=== PATIENT | female | born 1990 | race Caucasian/White ===

== ENCOUNTER 2020-02-21 14:28 | Emergency (ER) | payer OTHER, SELFPAY ==
[2020-02-21 16:10] VITALS: BP 111/75; PULSE 98; RESP 18; TEMP 37.2; O2SAT 99; BMI 24.7
--- NOTE | 2020-02-21 17:30 | PC.NURSE ---
PT EVALED BY PROVIDER. PT HAS CANKER SORES IN MOUTH. SLIGHT SWELLING. AIRWAY PATENT. TALKING IN FULL SENTENCES. COVID AND RAPID STREP ORDERED.
[2020-02-21 18:34] LABS: Influenza A PCR NEGATIVE (Negative); Influenza B PCR NEGATIVE (Negative); Resp Syncy Virus RNA Qual PCR NEGATIVE (Negative); SARS COV2 PCR INHOUSE NEGATIVE (Negative)
--- NOTE | 2020-02-21 19:06 | ED_ITS ---
HPI - General Adult General Chief complaint: General Medical Stated complaint: FACIAL SWELLING Time Seen by Provider: 02/21/20 17:49 Source: patient Mode of arrival: ambulatory Limitations: no limitations History of Present Illness HPI narrative: States she has had some runny nose/congestion for past several days today sore throat with sores in her mouth. Onset (ago): day(s) Severity: mild Treatments prior to arrival: none Related Data Allergies Allergy/AdvReac Type Severity Reaction Status Date / Time No Known Allergies Allergy Unverified 11/12/19 19:01 [No Known Allergies*] Review of Systems Review of Systems: Constitutional: No Weight loss, No Fever, No Chills, No Night Sweats, No Fatigue, No Malaise ENT/Mouth: No Hearing loss, No Ear Pain, + Nasal Congestion, No Sinus Pain, No Hoarseness, + sore throat, + Rhinorrhea, No Swallowing Difficulty Eyes: No Eye Pain, No Swelling, No Redness, No Foreign Body, No Discharge, No Vision Changes Cardiovascular: No Chest Pain, No SOB, No Dyspnea on Exertion, No Orthopnea, No Edema, No Palpitations Respiratory: No Cough, No Sputum, No Wheezing, No Smoke Exposure, No Dyspnea Gastrointestinal: No Nausea, No Vomiting, No Diarrhea, No Constipation, No abdominal Pain, No Hematochezia, No Melena Genitourinary: no irregular bleeding, No Dysuria, No Urinary Frequency, No Hematuria, No Urinary Incontinence, No Urgency, No Flank Pain, No Urinary Flow Changes, No Hesitancy Musculoskeletal: No joint pain, No Myalgias, No Joint Swelling Skin: No Skin Lesions, No rash Neuro: No Weakness, No Numbness, No Paresthesias, No Loss of Consciousness, No Dizziness, No Headache Psych: No Social Issues Heme/Lymph: No Bruising, No Bleeding,No Lymphadenopathy Endocrine: No Polyuria, No Polydipsia, No Temperature Intolerance Yes all other systems are reviewed and are negative [facility] Social History Social History Advance Directives: No Advance Directives Information Provided: Yes Physical Exam Vital Signs: Vital Signs: Last Vital Signs Temp 99.2 F 02/21/20 19:09 Pulse 85 02/21/20 19:09 Resp 16 02/21/20 19:09 BP 111/73 02/21/20 19:09 Pulse Ox 98 02/21/20 19:09 Body Mass Index 24.7 Reviewed Const: General: cooperative and healthy appearing; No acute distress or intoxicated appearing Nutritional Appearance: average body habitus Orientation/consciousness: patient oriented x3 HENMT: Head: Yes normal to inspection Ears: hearing grossly normal bilaterally Mouth: other (Three less than 0.5 cm areas of ulcerations consistent with canker sores) Throat: No peritonsillar mass and Yes postnasal drainage Eyes: General: appearance normal, both eyes and all related structures Visual Gustafson: normal visual gustafson by confrontation Neck: Neck: Yes normal visual inspection, No positive Brudzinski's sign, No positive Kernig's sign and No tender Thyroid: Thyroid normal Chest: Chest palpation & inspection: normal inspection of the chest Resp: Effort & Inspection: normal respiratory effort Cardio: Jugular venous distension: no JVD GI: Inspection: Yes normal to inspection Percussion: Yes normal to percussion Auscultation: normal bowel sounds : General: Yes no CVA tenderness Back/Spine/Pelvis: Back: no CVA tenderness Skin: General skin exam: no rashes or lesions noted Neuro: General: patient oriented x3 Extrem: General: Yes normal to inspection Course Course Course Narrative: Drinking fluids. No acute distress. On her phone. Medical Decision Making Lab Data Labs: Lab Results 02/21/20 Range/Units 17:36 Coronavirus (PCR) NEGATIVE (Negative) Influenza Type A (PCR) NEGATIVE (Negative) Influenza Type B (PCR) NEGATIVE (Negative) RSV RNA Qual (PCR) NEGATIVE (Negative) Discharge Plan Discharge Clinical Impression: Pharyngitis, Canker sores oral Patient Disposition: Home, Self-Care Instructions: Canker Sores (ED), Viral Syndrome (ED) Additional Instructions: Supportive care Avoid any spicy or very cold foods Social swallow Benadryl liquid [id number] as instructed Magic mouthwash or counter Push fluids Tylenol Motrin for pain discomfort Return if any concerns or worsening symptoms Thank you Referrals: Samina Osullivan MD [Primary Care Provider] - 10 days Interventions: ED Discharge Assessment Last Done: 02/21/20 19:21 Discharge Date/Time: 02/21/20 19:23
[2020-02-21 19:09] VITALS: BP 111/73; PULSE 85; RESP 16; TEMP 37.3; O2SAT 98
--- NOTE | 2020-02-21 19:11 | PC.NURSE ---
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
== END 2020-02-21 19:23 | disposition home or self-care (01) ==
PROVIDERS: Nurse Practitioner Primary Care; Emergency Provider Emergency Medicine; PCP Internal Medicine
DX: R22.1 Localized swelling, mass and lump, neck (principal); R07.0 Pain in throat; Z11.59 Encounter for screening for other viral diseases
CPT/HCPCS: 0241U; 87071; 87880; 99284

== ENCOUNTER 2021-01-02 11:31 | Outpatient (REF) | payer OTHER, SELFPAY | END 2021-01-02 11:32 | disposition home or self-care (01) | LOC: HO.LAB 11:31 | PROVIDERS: Visit Provider Internal Medicine | DX: Z20.822 Contact with and (suspected) exposure to COVID-19 (principal) | CPT/HCPCS: C9803; U0003; U0005 ==

== ENCOUNTER 2021-07-07 09:24 | Outpatient (REF) | payer OTHER, SELFPAY ==
--- NOTE | ~2021-07-07 | XR_ITS ---
EXAMINATION: XR BILATERAL KNEE CLINICAL INFORMATION: Pain. COMPARISON: None TECHNIQUE: 4 views each knee. FINDINGS: Right knee: The tricompartment joint space is maintained normal. No acute fracture, bony erosive changes, loose bodies or joint effusion seen. Left knee: The tricompartment joint space is normal. No visible acute fracture, dislocation, loose bodies or bony erosive changes. No abnormal joint effusion seen. XR/XR knee LT 4V IMPRESSION: Unremarkable bilateral knee exam.
--- NOTE | ~2021-07-07 | XR_ITS ---
EXAMINATION: XR BILATERAL KNEE CLINICAL INFORMATION: Pain. COMPARISON: None TECHNIQUE: 4 views each knee. FINDINGS: Right knee: The tricompartment joint space is maintained normal. No acute fracture, bony erosive changes, loose bodies or joint effusion seen. Left knee: The tricompartment joint space is normal. No visible acute fracture, dislocation, loose bodies or bony erosive changes. No abnormal joint effusion seen. XR/XR knee RT 4V IMPRESSION: Unremarkable bilateral knee exam.
--- NOTE | 2021-07-07 09:48 | ECG_ITS ---
Test Reason : CHEST PAIN Blood Pressure : / mmHG Vent. Rate : 070 BPM Atrial Rate : 070 BPM P-R Int : 148 ms QRS Dur : 090 ms QT Int : 368 ms P-R-T Axes : 045 059 012 degrees QTc Int : 397 ms Normal sinus rhythm Normal ECG No previous ECGs available Referred By: Samina Bone Electronically Signed By:JESSE VAIL MD
[2021-07-07 10:00] LABS: MANUAL DIFF FLAG NO
[2021-07-07 10:16] LABS: Basophils Absolute Auto 0.1 X10*3/uL (0.0-0.2); Basophils Percent Auto 0.9 % (0-2); Eosinophils Absolute Auto 0.1 X10*3/uL (0.0-0.4); Eosinophils Percent Auto 1.7 % (0-4); Hematocrit 36.1 % (37.0-47.0); Hemoglobin 11.4 g/dl (12.0-16.0); Imm Gran Abs Auto 0.04 X10*3/uL (0.00-0.03); Imm Gran Pct Auto 0.6 % (0.0-0.4); Lymphocytes Absolute Auto 1.9 X10*3/uL (1.2-4.9); Lymphocytes Percent Auto 27.1 % (20-40); Mean Corpuscular HGB Conc 31.6 g/dl (31.0-35.0); Mean Corpuscular Hemoglobin 27.2 pg (27.0-33.0); Mean Corpuscular Volume 86.2 fL (80.0-98.0); Mean Platelet Volume 10.8 fL (9.4-12.3); Monocytes Absolute Auto 0.6 X10*3/uL (0.1-1.2); Monocytes Percent Auto 8.4 % (2-11); Neutrophils Absolute Auto 4.2 x10*3/uL (2.0-8.3); Neutrophils Percent Auto 61.3 % (45-73); Platelet Count 233 X10*3/uL (160-400); Red Blood Count 4.19 X10*6/uL (4.20-5.50); Red Cell Distribution Width 13.7 % (11.0-16.0); White Blood Count 6.9 X10*3/uL (4.8-10.8)
[2021-07-07 10:48] LABS: Alanine Aminotransferase 7 U/L (0-31); Albumin Level 3.9 g/dL (3.5-5.0); Alkaline Phosphatase 42 U/L (39-117); Anion Gap 9 (12-20); Aspartate Amino Transferase 11 U/L (5-31); Bilirubin Total 0.3 mg/dL (0.0-1.0); Blood Urea Nitrogen 9 mg/dL (9-16); Calcium 9.2 mg/dL (8.4-10.2); Carbon Dioxide 27 mmol/L (22-29); Chloride 107 mmol/L (96-108); Cholesterol 119 mg/dL; Estimated Glomerular Filt Rate > 60; Glucose Fasting 100 mg/dL (60-99); HDL Cholesterol 38 mg/dL; LDL Cholesterol Calculated 69 mg/dl; Sodium 139 mmol/L (135-145); Total Protein 6.9 g/dL (6.5-8.0); Triglycerides 62 mg/dL
== END 2021-07-07 09:25 | disposition home or self-care (01) ==
LOC: HO.XRAY 09:24
PROVIDERS: PCP Internal Medicine; Visit Provider Internal Medicine
DX: R07.9 Chest pain, unspecified (principal); M25.562 Pain in left knee; M25.561 Pain in right knee; D64.9 Anemia, unspecified; K21.9 Gastro-esophageal reflux disease without esophagitis
CPT/HCPCS: 36415; 73564; 80053; 80061; 85025; 93005

== ENCOUNTER 2021-08-08 11:48 | Outpatient (REF) | payer OTHER, SELFPAY ==
[2021-08-09 08:52] LABS: BV Int Neg Control Negative (Negative); BV Int Pos Control Positive (Positive)
[2021-08-09 09:10] LABS: CT PCR NOT DETECTED (Not Detect.); NG PCR NOT DETECTED (Not Detect.)
[2021-08-15 02:13] LABS: HPV mRNA E6/E7 rflx Not Detected (Not Detected)
== END 2021-08-08 11:49 | disposition home or self-care (01) ==
LOC: HO.LAB 11:48
PROVIDERS: Visit Provider Advanced Practice Midwife
DX: Z01.419 Encounter for gynecological examination (general) (routine) without abnormal findings (principal); Z11.3 Encounter for screening for infections with a predominantly sexual mode of transmission; Z11.51 Encounter for screening for human papillomavirus (HPV)
CPT/HCPCS: 87480; 87491; 87510; 87591; 87624; 87660; 88142

== ENCOUNTER 2021-08-09 15:40 | Outpatient (REF) | payer OTHER, SELFPAY ==
[2021-08-11 15:28] LABS: H Pylori Breath Test Positive (Negative)
== END 2021-08-09 15:41 | disposition home or self-care (01) ==
LOC: HO.LNP 15:40
PROVIDERS: Visit Provider Nurse Practitioner Family
DX: K21.9 Gastro-esophageal reflux disease without esophagitis (principal)
CPT/HCPCS: 83013; 99202

== ENCOUNTER 2021-09-19 13:48 | Outpatient (REF) | payer OTHER, SELFPAY ==
--- NOTE | ~2021-09-19 | US_ITS ---
EXAMINATION: US PELVIS CLINICAL INFORMATION: Pelvic and perineal pain, last menstrual period 09/09/2021. COMPARISON: None. TECHNIQUE: Ultrasound of the pelvis is performed using both transabdominal and transvaginal transducers along with Doppler. Transvaginal imaging is performed due to inadequate visualization transabdominally. FINDINGS: The uterus is heterogeneous and measures 10.0 x 4.6 x 5.8 cm. No discrete fibroid identified. Endometrial thickness is 0.7 cm. No significant free fluid. Left ovary is unremarkable and measures 3.0 x 2.3 x 2.8 cm, volume 10.1 mL. Right ovary measures 4.7 x 1.8 x 3.2 cm, volume 14.2 mL. 1.6 x 1.5 x 1.6 cm likely simple right ovarian cyst is characteristic of a dominant follicle. US/US pelvic and transvaginal IMPRESSION: Endometrium is echogenic with thickness of 0.7 cm. Heterogeneous uterus. No discrete fibroids. Right ovarian 1.6 cm cyst is characteristic of a dominant follicle.
== END 2021-09-19 13:49 | disposition home or self-care (01) ==
LOC: HO.US 13:48
PROVIDERS: Visit Provider Advanced Practice Midwife
DX: R10.2 Pelvic and perineal pain (principal)
CPT/HCPCS: 76830; 76856

== ENCOUNTER 2021-11-14 08:24 | Day surgery (SDC) | payer OTHER, SELFPAY ==
[2021-11-09 12:09] VITALS: BMI 24.6
--- NOTE | 2021-11-13 14:22 | P.CONAN_ITS ---
Documented by User: Sherrell Martell NP 11/13/21 14:24 HPI - Anesthesia Eval Consult details Narrative: 31yo F for Upper Endoscopy PMFSH Active Problems Active Problems: All Active Problems (Updated 09/04/21 @ 12:53 by Ciarra Anguiano CNM) Hemorrhoids (Acute) Screen for sexually transmitted diseases (Acute) Cervical cancer screening (Acute) Well woman exam with routine gynecological exam (Acute) Pelvic pain (Acute) Chronic GERD (Acute) Right knee pain (Acute) Left knee pain (Acute) SAMRA (generalized anxiety disorder) (Acute) Migraines (Acute) Mild recurrent major depression (Acute) Chest pain (Acute) Past Medical History Medical History Chest pain Chronic GERD SAMRA (generalized anxiety disorder) Left knee pain Migraines Mild recurrent major depression Right knee pain Family History Family History Mother Diabetes Arthritis Father Diabetes Arthritis Sister Cancer Surgical History Surgical History Hx of cholecystectomy Hx of tubal ligation Social History Social History Housing: House Alcohol intake: never Patient Tobacco Use Status: Never used Tobacco e-Cigarette/Vaping Use: Never Used Second Hand Smoke Exposure: No Use of substances other than those prescribed or required for medical reasons: No Advance Directives: No Advance Directives Information Provided: Yes service: No Current occupational status: employed Current occupational exposures/hazards: No Cognitive needs: No Hearing needs: No Vision needs: Yes Meds Allergies Allergy/AdvReac Type Severity Reaction Status Date / Time No Known Allergies Allergy Verified 09/29/21 14:41 [No Known Allergies*] Exam Exam Date and Time: November 13, 2021 142 Height,Weight and Vital Signs: Height 5 ft 3 in Weight 63.049 kg Pertinent Lab Results Pertinent Lab Results: Laboratory Tests 07/07/21 07/07/21 09:59 09:59 WBC 6.9 Hgb 11.4 L Hct 36.1 L Plt Count 233 Sodium 139 Potassium 4.0 Chloride 107 Carbon Dioxide 27 BUN 9 Creatinine 0.68 Narrative Narrative: EKG 06/2021 Vent. Rate : 070 BPM ? ? Atrial Rate : 070 BPM ?? P-R Int : 148 ms? QRS Dur : 090 ms ? ? QT Int : 368 ms ? ? ? P-R-T Axes : 045 059 012 degrees ?? QTc Int : 397 ms ? Normal sinus rhythm Normal ECG No previous ECGs available Assessment and Plan Assessment Anesthesia Assessment: Chart Reviewed Documented by User: Yordan Tomlinson MD 11/14/21 10:26 [facility] Past Medical History Medical History Chest pain Chronic GERD SAMRA (generalized anxiety disorder) Left knee pain Migraines Mild recurrent major depression Right knee pain Patient : No Family History Family History Mother Diabetes Arthritis Father Diabetes Arthritis Sister Cancer Family history of problems with anesthesia: No Surgical History Surgical History Hx of cholecystectomy Hx of tubal ligation History of Problems with Anesthesia: No Social History Social History Housing: House Alcohol intake: never Patient Tobacco Use Status: Never used Tobacco e-Cigarette/Vaping Use: Never Used Second Hand Smoke Exposure: No Use of substances other than those prescribed or required for medical reasons: No Advance Directives: No Advance Directives Information Provided: Yes service: No Current occupational status: employed Current occupational exposures/hazards: No Cognitive needs: No Hearing needs: No Vision needs: Yes Meds Allergies Allergy/AdvReac Type Severity Reaction Status Date / Time No Known Allergies Allergy Verified 09/29/21 14:41 [No Known Allergies*] Exam Airway Mallampati Class: II TM Dist: >3cm Neck ROM: Full Loose/Missing/Broken Teeth: No Heart: rrr Lungs: clear Assessment and Plan Final Anesthetic Review Family History of Problems with Anesthesia: No History of Problems with Anesthesia: No NPO: Yes ASA Class: II Final Preanesthetic Review: No Changes in Pt Med Stat, Meds/Allgs Chart Reviewed, Consent Obtained/Reviewed and Anes Risks/Benef Reviewed Patient Risk: Low Procedure Risk: Low Anesthetic Plan Anesthetic Plan: MAC: Disposition: Standard PACU
--- NOTE | 2021-11-14 09:08 | MHC.SHP ---
Pre-Procedural Eval Section A Date of Service: 11/14/21 Section B Chief Complaint: epigastric pain Details of Present Illness: h pylori--finished treatment last week Relevant Family History (Specify if Yes): No Relevant Social History: None Present Medications: see Short Stay Collaborative assessment Medical History: Significant History (gerd) History of Previous Operations: Relevant previous surgery/procedure and date(s) (Hx of cholecystectomy Hx of tubal ligation) Allergies: Allergies Allergy/AdvReac Type Severity Reaction Status Date / Time No Known Allergies Allergy Verified 09/29/21 14:41 [No Known Allergies*] Review of Systems Sugical H&P ROS: Negative: Constitution, Cardiovascular, Respiratory, Neurological, Psychiatric, Hem-Onc, Allergic/Immunologic, Gastrointestinal, Genitourinary, Musculoskeletal, Integumentary, Endocrine and Eyes/Ears/Nose/Throat Exam Surgical H&P Exam: Normal: HEENT, Normal: Heart, Normal: Lungs, Normal: Extremities, Normal: Abdomen, Normal: Skin and Normal: Neurological Plan Diagnosis/Plan: Unchanged I have reviewed the history and physical and performed a pertinent physical examination on my patient. No changes have occurred unless specified.
[2021-11-14 10:19] VITALS: BP 120/78; PULSE 79; RESP 16; TEMP 36.6; O2SAT 100; BMI 23.9
[2021-11-14] MEDS: Lactated Ringers 1,000 ML 100 ML IVCONT (10:22)
--- NOTE | 2021-11-14 11:11 | W.PM.OPN ---
Operative Note Operative Note Date of Service: 11/14/21 Narrative: Procedure Description: EGD Indication: epigastric pain Anesthesia: MAC FLEXIBLE TRANSORAL UPPER GASTROINTESTINAL ENDOSCOPY UPPER ENDOSCOPY Consent: Indications for the procedure and potential complications of bleeding, perforation, reaction to medications and missed diagnosis were discussed with the patient and informed consent was obtained. Instrument: Olympus GIF H 190 J mid size upper endoscope Monitoring: Vital signs and clinical assessment, continuous EKG monitoring, Pulse oximetry, Carbon Dioxide monitoring and blood pressure monitoring were done throughout the procedure. Procedure: The patient was placed in the left lateral decubitis position and pre-procedure medications were administered and a bite block was placed. The endoscope was inserted into the mouth and advanced under direct vision to the third part of duodenum. A careful inspection was made as the upper endoscope was withdrawn including a retroflexed examination of the proximal stomach; Findings and interventions are described below. Findings: Larynx:normal Esophagus: GE junction at 34 cm, diaphragm hiatus at 37 cm, consistent with 3 cm hiatal hernia, possible barretts, bx taken from GEJ and then distal and proximal esophagus in separate jars. Stomach: Patchy gastric erythema. Biopsies were obtained. Grade 2 flap valve on retroflexed examination of the cardia. Duodenum: mild bulbar duodenitis, normal descending duodenum, bx taken, also pulsation noted pushing into the second part of duodenum Intervention: Biopsies as noted above Impression/Findings: hiatal hernia duodenitis possible barretts ?SMA syndrome PLAN: await bx if ongoing sx then US mesenteric doppler
[2021-11-14 11:18] VITALS: BP 113/70; PULSE 78; RESP 16; TEMP 36.6; O2SAT 100
[2021-11-14 11:33] VITALS: BP 113/74; PULSE 83; RESP 16; TEMP 36.6; O2SAT 100
[2021-11-14 11:48] VITALS: BP 121/84; PULSE 70; RESP 16; TEMP 36.6; O2SAT 100
== END 2021-11-14 12:19 | disposition home or self-care (01) ==
PROVIDERS: PCP Internal Medicine; Visit Provider Internal Medicine Gastroenterology
PROC: 0DJ08ZZ Inspection of Upper Intestinal Tract, Via Natural or Artificial Opening Endoscopic (ICD-10-PCS; CPT 43235; principal; 2021-11-14 11:00)
DX: K59.04 Chronic idiopathic constipation (principal); K21.9 Gastro-esophageal reflux disease without esophagitis; R13.12 Dysphagia, oropharyngeal phase; R10.13 Epigastric pain; Z86.19 Personal history of other infectious and parasitic diseases; R14.0 Abdominal distension (gaseous); K29.80 Duodenitis without bleeding; K44.9 Diaphragmatic hernia without obstruction or gangrene; Z79.899 Other long term (current) drug therapy; Z90.49 Acquired absence of other specified parts of digestive tract
CPT/HCPCS: 43239; 88305; 88342

== ENCOUNTER → 2021-12-08 10:14 | Outpatient (BNVA) | payer OTHER, SELFPAY | PROVIDERS: PCP Internal Medicine; Visit Provider Nurse Practitioner Family | DX: K21.9 Gastro-esophageal reflux disease without esophagitis (principal); K59.00 Constipation, unspecified; R10.11 Right upper quadrant pain; K58.1 Irritable bowel syndrome with constipation; R14.0 Abdominal distension (gaseous); K44.9 Diaphragmatic hernia without obstruction or gangrene; K29.80 Duodenitis without bleeding | CPT/HCPCS: 99212 ==

== ENCOUNTER 2021-12-22 09:05 | Outpatient (REF) | payer OTHER, SELFPAY ==
--- NOTE | ~2021-12-22 | XR_ITS ---
EXAMINATION: XR KNEE, LEFT CLINICAL INFORMATION: M25.562 - Pain in left knee COMPARISON: Left knee radiographs 01/14/2018 TECHNIQUE: Four views of the left knee. FINDINGS: Normal bony mineralization. No fracture, dislocation, destructive process, or arthropathy. No joint narrowing or erosive change or chondrocalcinosis. No visible suprapatellar effusion. Hoffa's fat pad appears normal. XR/XR knee LT 3V IMPRESSION: Normal left knee.
--- NOTE | ~2021-12-22 | XR_ITS ---
EXAMINATION: XR WRIST, LEFT CLINICAL INFORMATION: Pain COMPARISON: None TECHNIQUE: The left wrist is imaged in 4 views. FINDINGS: Normal bony mineralization. No acute or healing fracture or dislocation or arthropathy. Lateral view shows dorsal bowing of the distal ulnar. The pronator quadratus fat pad appears normal. There is no carpal joint narrowing, erosive changes, or chondrocalcinosis. XR/XR hand wrist LT IMPRESSION: 1. No fracture, dislocation, or arthropathy. 2. Mild dorsal bowing distal ulnar on lateral view.
[2021-12-22 09:27] LABS: MANUAL DIFF FLAG NO
[2021-12-22 10:12] LABS: Basophils Percent Auto 0.6 % (0-2); Eosinophils Absolute Auto 0.1 X10*3/uL (0.0-0.4); Eosinophils Percent Auto 1.7 % (0-4); Hematocrit 37.1 % (37.0-47.0); Hemoglobin 11.8 g/dl (12.0-16.0); Imm Gran Abs Auto 0.07 X10*3/uL (0.00-0.03); Lymphocytes Absolute Auto 2.1 X10*3/uL (1.2-4.9); Lymphocytes Percent Auto 29.3 % (20-40); Mean Corpuscular HGB Conc 31.8 g/dl (31.0-35.0); Mean Corpuscular Hemoglobin 27.6 pg (27.0-33.0); Mean Corpuscular Volume 86.9 fL (80.0-98.0); Mean Platelet Volume 10.7 fL (9.4-12.3); Monocytes Absolute Auto 0.7 X10*3/uL (0.1-1.2); Monocytes Percent Auto 9.2 % (2-11); Neutrophils Absolute Auto 4.1 x10*3/uL (2.0-8.3); Neutrophils Percent Auto 58.2 % (45-73); Platelet Count 242 X10*3/uL (160-400); Red Blood Count 4.27 X10*6/uL (4.20-5.50); Red Cell Distribution Width 13.4 % (11.0-16.0); White Blood Count 7.1 X10*3/uL (4.8-10.8)
[2021-12-22 10:55] LABS: Blood Urea Nitrogen 10 mg/dL (9-16); Estimated Glomerular Filt Rate > 60; Iron 47 mcg/dL (30-160); Lipase 29 U/L (8-78); Percent Iron Saturation 12 % (15-50); Total Iron Binding Capacity 391 mcg/dL (228-428); Unsaturated Iron Binding 344 ug/dL
== END 2021-12-22 09:06 | disposition home or self-care (01) ==
LOC: HO.XRAY 09:05
PROVIDERS: Absent Provider Nurse Practitioner Family; PCP Internal Medicine; Visit Provider Internal Medicine
DX: R10.11 Right upper quadrant pain (principal); M79.642 Pain in left hand; M25.562 Pain in left knee; D64.9 Anemia, unspecified
CPT/HCPCS: 36415; 73110; 73130; 73562; 82565; 83540; 83690; 84520; 85025; 86003

== ENCOUNTER 2021-12-27 12:22 | Outpatient (REF) | payer OTHER, SELFPAY ==
--- NOTE | ~2021-12-27 | CT_ITS ---
EXAMINATION: CT ABDOMEN AND PELVIS WITH CONTRAST CLINICAL INFORMATION: Unspecified abdominal pain. COMPARISON: None TECHNIQUE: Multidetector volumetric images were obtained from the superior aspect of the liver through the pubic symphysis following administration 85 mL of Omnipaque 350 intravenous contrast. Sagittal and coronal reformatted images were obtained on the technologist's workstation. Oral contrast: No. This CT examination was performed using dose optimization techniques as appropriate, variously including the following: *Automated exposure control *Adjustment of mA and/or kV according to patient size (this includes techniques or standardized protocols for targeted exams where dose is matched to indication/reason for exam; i.e. extremities or head) *Use of iterative reconstruction technique DLP: 297 mGy-cm FINDINGS: LUNG BASES: Minimal atelectasis at the left lung base. The heart size is normal. LIVER, GALLBLADDER, AND BILIARY TREE: The liver is normal in size, shape, and attenuation. No focal hepatic lesion or biliary ductal dilatation is present. The gallbladder is unremarkable with no evidence of radiopaque gallstones, gallbladder wall thickening, or obvious pericholecystic inflammatory changes. PANCREAS: Unremarkable. SPLEEN: Unremarkable. ADRENAL GLANDS: Unremarkable. KIDNEYS AND URETERS: The kidneys are normal in size, shape, and attenuation. No hydronephrosis, hydroureter, or calculi seen. No perinephric stranding. BLADDER: The bladder is nondistended. GASTROINTESTINAL TRACT: There is moderate scattered stool and oral contrast seen throughout the colon without distention. The small bowel loops are normal caliber. The appendix is not visualized. There is no inflammatory process seen in the abdomen. No free air or free fluid seen. ABDOMINAL WALL: No significant hernia is appreciated. LYMPH NODES: Normal. VASCULAR: Unremarkable. PELVIC VISCERA: The uterus is anteverted and appears unremarkable. No adnexal mass or free fluid seen. No abnormal-sized lymph nodes. OSSEOUS STRUCTURES: Unremarkable. CT/CT abdomen pelvis w IV con IMPRESSION: No acute intra-abdominal process seen. [id number] constipation. The appendix is not seen. Fleischner guidelines were followed.
[2021-12-27] MEDS: Barium Sulfate Oral (Berry) 450 ML ORAL.SUSP 900 ML PO (13:55)
[2021-12-27] MEDS: iohexoL 350 MG/ML 100 ML INFUS..BTL 85 ML IV (15:16)
== END 2021-12-27 12:23 | disposition home or self-care (01) ==
LOC: HO.CT 12:22
PROVIDERS: PCP Internal Medicine; Visit Provider Nurse Practitioner Family
DX: R10.9 Unspecified abdominal pain (principal)
CPT/HCPCS: 74177; Q9967

== ENCOUNTER 2022-02-10 21:42 | Emergency (ER) | payer OTHER, SELFPAY ==
[2022-02-10 22:42] VITALS: BP 93/46; PULSE 107; RESP 24; TEMP 38.7; O2SAT 100; BMI 23.0
[2022-02-11 03:27] VITALS: BP 116/60; PULSE 96; RESP 16; TEMP 37.7; O2SAT 98
[2022-02-11 03:58] LABS: MANUAL DIFF FLAG NO
[2022-02-11 03:59] LABS: Basophils Percent Auto 0.3 % (0-2); Eosinophils Percent Auto 0.1 % (0-4); Hematocrit 33.6 % (37.0-47.0); Hemoglobin 11.3 g/dl (12.0-16.0); Imm Gran Abs Auto 0.11 X10*3/uL (0.00-0.03); Imm Gran Pct Auto 0.7 % (0.0-0.4); Lymphocytes Percent Auto 6.3 % (20-40); Mean Corpuscular HGB Conc 33.6 g/dl (31.0-35.0); Mean Corpuscular Volume 83.4 fL (80.0-98.0); Mean Platelet Volume 10.5 fL (9.4-12.3); Monocytes Absolute Auto 1.2 X10*3/uL (0.1-1.2); Monocytes Percent Auto 7.2 % (2-11); Neutrophils Absolute Auto 13.6 x10*3/uL (2.0-8.3); Neutrophils Percent Auto 85.4 % (45-73); Platelet Count 204 X10*3/uL (160-400); Red Blood Count 4.03 X10*6/uL (4.20-5.50); Red Cell Distribution Width 13.2 % (11.0-16.0)
[2022-02-11 04:10] LABS: Lactic Acid 1.3 mmol/L (0.5-2.0)
[2022-02-11 04:20] LABS: Alanine Aminotransferase 6 U/L (0-31); Albumin Level 4.1 g/dL (3.5-5.0); Alkaline Phosphatase 43 U/L (39-117); Anion Gap 14 (12-20); Aspartate Amino Transferase 13 U/L (5-31); Bilirubin Direct 0.3 mg/dL (0.0-0.5); Bilirubin Total 0.9 mg/dL (0.0-1.0); Blood Urea Nitrogen 9 mg/dL (9-16); Calcium 8.9 mg/dL (8.4-10.2); Carbon Dioxide 21 mmol/L (22-29); Chloride 102 mmol/L (96-108); Estimated Glomerular Filt Rate > 60; Glucose Random 116 mg/dL (60-115); Lipase 20 U/L (8-78); Magnesium 1.6 mg/dL (1.6-2.6); Potassium 3.6 mmol/L (3.3-5.1); Sodium 133 mmol/L (135-145); Total Protein 6.9 g/dL (6.5-8.0)
[2022-02-11 04:33] LABS: Influenza A PCR NEGATIVE (Negative); Influenza B PCR NEGATIVE (Negative); Resp Syncy Virus RNA Qual PCR NEGATIVE (Negative); SARS COV2 PCR INHOUSE POSITIVE (Negative)
[2022-02-11 06:00] VITALS: BP 114/58; PULSE 100; RESP 16; TEMP 37.7; O2SAT 98
--- NOTE | 2022-02-11 06:32 | ED_ITS ---
HPI - Fever General Chief Complaint: Fever Stated Complaint: Vomiting/ SOB Time Seen by Provider: 02/11/22 01:34 Source: patient Mode of arrival: ambulatory History of Present Illness HPI Narrative: Patient comes emergency room complaining of body aches, fever. Related Data Home Medications Medication Instructions Recorded Confirmed hydroxyzine pamoate 50 mg capsule 50 mg PO BID PRN 12/08/21 sertraline 25 mg tablet 25 mg PO DAILY 12/08/21 Previous Rx's Medication Instructions Recorded trazodone 50 mg tablet 50 mg PO BEDTIME PRN sleep 90 days 12/05/21 #90 tabs famotidine 20 mg tablet (Pepcid) 20 mg PO BEDTIME #30 tabs 12/08/21 pantoprazole 40 mg tablet,delayed 40 mg PO DAILY #90 tabs 12/08/21 release sennosides 8.6 mg tablet (Natural 8.6 mg PO BEDTIME constipation #90 12/08/21 Senna Laxative) tabs nirmatrelvir 300 mg (150 mg See Rx Instructions PO .COMPLEX 02/11/22 x2)-ritonavir 100 mg tablet,dose #30 ea pack(EUA) (Paxlovid) ondansetron 4 mg disintegrating 4 mg PO Q6H PRN nausea and 02/11/22 tablet vomiting #14 tabs Allergies Allergy/AdvReac Type Severity Reaction Status Date / Time No Known Allergies Allergy Verified 12/08/21 10:23 [No Known Allergies*] Review of Systems Review of Systems: Constitutional : No Weight loss, subjective fever, body ENT/Mouth : No Hearing loss, No Ear Pain, No Nasal Congestion, No Sinus Pain, No Hoarseness, No sore throat, No Rhinorrhea, No Swallowing Difficulty Eyes: No Eye Pain, No Swelling, No Redness, No Foreign Body, No Discharge, No Vision Changes Cardiovascular : No Chest Pain, No SOB, No Dyspnea on Exertion, No Orthopnea, No Edema, No Palpitations Respiratory : No Cough, No Sputum, No Wheezing, No Smoke Exposure, No Dyspnea Gastrointestinal : complaining of Vomiting, No Diarrhea, No Constipation, No abdominal Pain, No Hematochezia, No Melena Genitourinary : no irregular bleeding, No Dysuria, No Urinary Frequency, No Hematuria, No Urinary Incontinence, No Urgency, No Flank Pain, No Urinary Flow Changes, No Hesitancy Musculoskeletal : No joint pain, No Myalgias, No Joint Swelling Skin : No Skin Lesions, No rash Neuro : No Weakness, No Numbness, No Paresthesias, No Loss of Consciousness, No Dizziness, No Headache Psych : No Anxiety/Panic, No Depression, No SI/HI/AH/VH, No Social Issues, Heme/Lymph: No Bruising, No Bleeding,No Lymphadenopathy Endocrine : No Polyuria, No Polydipsia, No Temperature Intolerance FOR[facility], LAT[facility] Past Medical History Medical History Chest pain Chronic GERD Duodenitis SAMRA (generalized anxiety disorder) Hiatal hernia Left knee pain Migraines Mild recurrent major depression Right knee pain Surgical History History of esophagogastroduodenoscopy (EGD) Hx of cholecystectomy Hx of tubal ligation Family History Family History Mother Diabetes Arthritis Father Diabetes Arthritis Sister Cancer Social History Social History Housing: House Alcohol intake: never Patient Tobacco Use Status: Never used Tobacco e-Cigarette/Vaping Use: Never Used Second Hand Smoke Exposure: No Advance Directives: No Advance Directives Information Provided: No service: No Current occupational status: employed Current occupational exposures/hazards: No Cognitive needs: No Hearing needs: No Vision needs: Yes Physical Exam Vital Signs: Vital Signs: Last Vital Signs Temp 99.9 F 02/11/22 06:00 Pulse 100 02/11/22 06:00 Resp 16 02/11/22 06:00 BP 114/58 L 02/11/22 06:00 Pulse Ox 98 02/11/22 06:00 O2 Del Method 02/11/22 06:00 BMI result Body Mass Index 23.0 Const: Other: Appearance: Alert. Oriented X3. No acute distress. Eyes: Pupils equal, round and reactive to light. Bilateral scleral injection ENT: Pharynx normal. Neck: Normal inspection. Neck supple. No lymph nodes noted. No crepitus CVS: Normal heart rate and rhythm. Pulses normal. Normal S1 and S2 Respiratory: No respiratory distress. Breath sounds normal. No Wheezing. No rales Abdomen: Soft and nontender. No rigidity. No distention. Skin: Skin warm and dry. Normal skin color. Normal skin turgor. Extremities: No lower extremity edema. No Lacerations. No Rash Neuro: Oriented X 3. No motor deficit. No sensory deficit. Moving all extremities. No slurred speech. CN 2 through 12 grossly intact Psych: calm, cooperative, normal affect Course Course Course Narrative: I discussed the labs with the patient, patient tested positive for influenza A. Patient's white blood cell count elevated, likely reactive leukocytosis. Patient having a viral illness per Medical Decision Making Lab Data Result Diagrams: 02/11/22 03:52 02/11/22 03:52 Labs: Lab Results 02/11/22 02/11/22 02/11/22 Range/Units 03:52 03:52 03:52 WBC 16.0 H (4.8-10.8) X10*3/uL RBC 4.03 L (4.20-5.50) X10*6/uL Hgb 11.3 L (12.0-16.0) g/dl Hct 33.6 L (37.0-47.0) % MCV 83.4 (80.0-98.0) fL MCH 28.0 (27.0-33.0) pg MCHC 33.6 (31.0-35.0) g/dl RDW 13.2 (11.0-16.0) % Plt Count 204 (160-400) X10*3/uL MPV 10.5 (9.4-12.3) fL Immature Gran % (Auto) 0.7 H (0.0-0.4) % Neut % (Auto) 85.4 H (45-73) % Lymph % (Auto) 6.3 L (20-40) % [place] % (Auto) 7.2 (2-11) % Eos % (Auto) 0.1 (0-4) % Baso % (Auto) 0.3 (0-2) % Lymph # (Auto) 1.0 L (1.2-4.9) X10*3/uL [place] # (Auto) 1.2 (0.1-1.2) X10*3/uL Eos # (Auto) 0.0 (0.0-0.4) X10*3/uL Baso # (Auto) 0.0 (0.0-0.2) X10*3/uL Abs Immat Gran (auto) 0.11 H (0.00-0.03) X10*3/uL Absolute Neuts (auto) 13.6 H (2.0-8.3) x10*3/uL Absolute Nucleated RBC 0.000 (0.0-0.012) X10*3/uL Nucleated RBC % (auto) 0.0 (0.0-0.2) /100WBC Sodium 133 L (135-145) mmol/L Potassium 3.6 (3.3-5.1) mmol/L Chloride 102 (96-108) mmol/L Carbon Dioxide 21 L (22-29) mmol/L Anion Gap 14 (12-20) BUN 9 (9-16) mg/dL Creatinine 0.74 (0.5-1.4) mg/dL Estim Creat Clear Calc 91.0 Estimated GFR > 60 Random Glucose 116 H (60-115) mg/dL Lactic Acid (0.5-2.0) mmol/L Calcium 8.9 (8.4-10.2) mg/dL Magnesium 1.6 (1.6-2.6) mg/dL Total Bilirubin 0.9 (0.0-1.0) mg/dL Direct Bilirubin 0.3 (0.0-0.5) mg/dL AST 13 (5-31) U/L ALT 6 (0-31) U/L Alkaline Phosphatase 43 (39-117) U/L Total Protein 6.9 (6.5-8.0) g/dL Albumin 4.1 (3.5-5.0) g/dL Lipase 20 (8-78) U/L Influenza Type A (PCR) NEGATIVE (Negative) Influenza Type B (PCR) NEGATIVE (Negative) RSV RNA Qual (PCR) NEGATIVE (Negative) SARS-CoV-2 RNA (RT-PCR) POSITIVE A (Negative) 02/11/22 Range/Units 03:52 WBC (4.8-10.8) X10*3/uL RBC (4.20-5.50) X10*6/uL Hgb (12.0-16.0) g/dl Hct (37.0-47.0) % MCV (80.0-98.0) fL MCH (27.0-33.0) pg MCHC (31.0-35.0) g/dl RDW (11.0-16.0) % Plt Count (160-400) X10*3/uL MPV (9.4-12.3) fL Immature Gran % (Auto) (0.0-0.4) % Neut % (Auto) (45-73) % Lymph % (Auto) (20-40) % [place] % (Auto) (2-11) % Eos % (Auto) (0-4) % Baso % (Auto) (0-2) % Lymph # (Auto) (1.2-4.9) X10*3/uL [place] # (Auto) (0.1-1.2) X10*3/uL Eos # (Auto) (0.0-0.4) X10*3/uL Baso # (Auto) (0.0-0.2) X10*3/uL Abs Immat Gran (auto) (0.00-0.03) X10*3/uL Absolute Neuts (auto) (2.0-8.3) x10*3/uL Absolute Nucleated RBC (0.0-0.012) X10*3/uL Nucleated RBC % (auto) (0.0-0.2) /100WBC Sodium (135-145) mmol/L Potassium (3.3-5.1) mmol/L Chloride (96-108) mmol/L Carbon Dioxide (22-29) mmol/L Anion Gap (12-20) BUN (9-16) mg/dL Creatinine (0.5-1.4) mg/dL Estim Creat Clear Calc Estimated GFR Random Glucose (60-115) mg/dL Lactic Acid 1.3 (0.5-2.0) mmol/L Calcium (8.4-10.2) mg/dL Magnesium (1.6-2.6) mg/dL Total Bilirubin (0.0-1.0) mg/dL Direct Bilirubin (0.0-0.5) mg/dL AST (5-31) U/L ALT (0-31) U/L Alkaline Phosphatase (39-117) U/L Total Protein (6.5-8.0) g/dL Albumin (3.5-5.0) g/dL Lipase (8-78) U/L Influenza Type A (PCR) (Negative) Influenza Type B (PCR) (Negative) RSV RNA Qual (PCR) (Negative) SARS-CoV-2 RNA (RT-PCR) (Negative) Discharge Plan Discharge Clinical Impression: COVID-19 Patient Disposition: Home, Self-Care Instructions: COVID-19 (Coronavirus Disease 2019) (ED) Additional Instructions: Please follow-up with your primary care physician tomorrow. If you have any worsening or new symptoms, please return to the emergency room or call 911 Prescriptions: New Paxlovid (EUA) 300 mg (150 mg x 2)-100 mg tablets,dose pack See Rx Instructions .ROUTE .COMPLEX Qty: 30 0RF Rx Instructions: take TWO 150 mg tablets of nirmatrelvir with ONE 100 mg tablet of ritonavir twice daily for 5 days ondansetron 4 mg tablet,disintegrating 4 mg PO Q6H PRN (Reason: nausea and vomiting) Qty: 14 0RF No Action trazodone 50 mg tablet 50 mg PO BEDTIME PRN (Reason: sleep) 90 Days Qty: 90 0RF sertraline 25 mg tablet 25 mg PO DAILY hydroxyzine pamoate 50 mg capsule 50 mg PO BID PRN famotidine [Pepcid] 20 mg tablet 20 mg PO BEDTIME Qty: 30 3RF sennosides [Natural Senna Laxative] 8.6 mg tablet 8.6 mg PO BEDTIME Qty: 90 3RF pantoprazole 40 mg tablet,delayed release (DR/EC) 40 mg PO DAILY Qty: 90 2RF Rx Instructions: take one tablet half an hour before breakfast
[2022-02-11 06:48] VITALS: BP 91/54; PULSE 65; RESP 18; TEMP 36.8
[2022-02-11] MEDS: Ondansetron ODT 4 MG TAB.RAPDIS TRANSLINGU (06:51)
[2022-02-11] MEDS: Ketorolac Tromethamine 60 MG/2 ML VIAL IM (06:51)
== END 2022-02-11 08:59 | disposition home or self-care (01) ==
PROVIDERS: Emergency Provider Emergency Medicine
DX: U07.1 COVID-19 (principal); R50.9 Fever, unspecified; M79.10 Myalgia, unspecified site; R06.02 Shortness of breath; Z79.899 Other long term (current) drug therapy
CPT/HCPCS: 0241U; 36415; 80048; 80076; 83605; 83690; 83735; 85025; 87040; 96374; 99284; J1885

== ENCOUNTER → 2022-03-09 10:50 | Outpatient (BNVA) | payer OTHER, SELFPAY | PROVIDERS: PCP Internal Medicine; Visit Provider Nurse Practitioner Family | DX: K21.9 Gastro-esophageal reflux disease without esophagitis (principal); K58.9 Irritable bowel syndrome, unspecified; R14.0 Abdominal distension (gaseous); K59.04 Chronic idiopathic constipation; Z79.899 Other long term (current) drug therapy | CPT/HCPCS: 99212 ==

== ENCOUNTER 2022-06-12 11:09 | Outpatient (REF) | payer OTHER, SELFPAY ==
--- NOTE | ~2022-06-12 | XR_ITS ---
EXAMINATION: XR HAND, LEFT CLINICAL INFORMATION: Pain COMPARISON: X-ray 12/22/2021 TECHNIQUE: PA, lateral, and oblique views of the left hand. FINDINGS: No fracture or dislocation. No significant joint space narrowing or marginal osteophytes. No osseous erosion. No abnormal soft tissue calcification. XR/XR hand LT min 3V IMPRESSION: No acute osseous abnormality
== END 2022-06-12 11:10 | disposition home or self-care (01) ==
LOC: HO.HOSX 11:09
PROVIDERS: Visit Provider Orthopaedic Surgery
DX: M79.642 Pain in left hand (principal); R20.0 Anesthesia of skin; M77.8 Other enthesopathies, not elsewhere classified
CPT/HCPCS: 73130; 99202

== ENCOUNTER 2022-06-14 11:58 | Emergency (ER) | payer OTHER, SELFPAY ==
--- NOTE | 2022-06-14 12:00 | ED.GENADULT ---
HPI - General Adult General Chief complaint: GI Bleed Stated complaint: Blood in Stool Time Seen by Provider: 06/14/22 13:04 Related Data Home Medications Medication Instructions Recorded Confirmed hydroxyzine pamoate 50 mg capsule 50 mg PO BID PRN 12/08/21 sertraline 25 mg tablet 25 mg PO DAILY 12/08/21 Previous Rx's Medication Instructions Recorded nirmatrelvir 300 mg (150 mg See Rx Instructions PO .COMPLEX 02/11/22 x2)-ritonavir 100 mg tablet,dose #30 ea pack(EUA) (Paxlovid) ondansetron 4 mg disintegrating 4 mg PO Q6H PRN nausea and 02/11/22 tablet vomiting #14 tabs trazodone 50 mg tablet 50 mg PO BEDTIME PRN sleep 90 days 03/05/22 #90 tabs famotidine 20 mg tablet (Pepcid) 20 mg PO BEDTIME #30 tabs 03/09/22 pantoprazole 40 mg tablet,delayed 40 mg PO DAILY #90 tabs 03/09/22 release polyethylene glycol 3350 17 17 g PO DAILY #510 grams 03/09/22 gram/dose oral powder (Miralax) sennosides 8.6 mg tablet (Natural 8.6 mg PO BEDTIME constipation #90 03/09/22 Senna Laxative) tabs Allergies Allergy/AdvReac Type Severity Reaction Status Date / Time No Known Allergies Allergy Verified 06/14/22 12:01 [No Known Allergies*] PMFSH Past Medical History Medical History Chest pain Chronic GERD Duodenitis SAMRA (generalized anxiety disorder) Hiatal hernia Left knee pain Migraines Mild recurrent major depression Right knee pain Surgical History History of esophagogastroduodenoscopy (EGD) Hx of cholecystectomy Hx of tubal ligation Family History Family History Mother Diabetes Arthritis Father Diabetes Arthritis Sister Cancer Social History Social History Housing: House Alcohol intake: never Patient Tobacco Use Status: Never used Tobacco e-Cigarette/Vaping Use: Never Used Second Hand Smoke Exposure: No Advance Directives: No Advance Directives Information Provided: No service: No Current occupational status: employed 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 States this fells different than her hemorrhoids. Admits blood is in toilet bowl and on paper. Denies taking AC, N/V Labs, UA, Preg, occult stool Medical Decision Making Lab Data 06/14/22 12:10 06/14/22 12:09 Labs: Lab Results 06/14/22 06/14/22 06/14/22 Range/Units 12:09 12:10 12:10 WBC 7.4 (4.8-10.8) X10*3/uL RBC 4.53 (4.20-5.50) X10*6/uL Hgb 12.6 (12.0-16.0) g/dl Hct 39.7 (37.0-47.0) % MCV 87.6 (80.0-98.0) fL MCH 27.8 (27.0-33.0) pg MCHC 31.7 (31.0-35.0) g/dl RDW 13.2 (11.0-16.0) % Plt Count 213 (160-400) X10*3/uL MPV 10.2 (9.4-12.3) fL Immature Gran % (Auto) 0.4 (0.0-0.4) % Neut % (Auto) 53.9 (45-73) % Lymph % (Auto) 35.8 (20-40) % [place] % (Auto) 8.4 (2-11) % Eos % (Auto) 0.8 (0-4) % Baso % (Auto) 0.7 (0-2) % Lymph # (Auto) 2.6 (1.2-4.9) X10*3/uL [place] # (Auto) 0.6 (0.1-1.2) X10*3/uL Eos # (Auto) 0.1 (0.0-0.4) X10*3/uL Baso # (Auto) 0.1 (0.0-0.2) X10*3/uL Abs Immat Gran (auto) 0.03 (0.00-0.03) X10*3/uL Absolute Neuts (auto) 4.0 (2.0-8.3) x10*3/uL Absolute Nucleated RBC 0.000 (0.0-0.012) X10*3/uL Nucleated RBC % (auto) 0.0 (0.0-0.2) /100WBC Sodium 139 (135-145) mmol/L Potassium 4.2 (3.3-5.1) mmol/L Chloride 105 (96-108) mmol/L Carbon Dioxide 30 H (22-29) mmol/L Anion Gap 8 L (12-20) BUN 10 (9-16) mg/dL Creatinine 0.78 (0.5-1.4) mg/dL Estim Creat Clear Calc 90.0 Estimated GFR > 60 Random Glucose 90 (60-115) mg/dL Calcium 9.2 (8.4-10.2) mg/dL Magnesium 2.0 (1.6-2.6) mg/dL Total Bilirubin 0.6 (0.0-1.0) mg/dL Direct Bilirubin 0.2 (0.0-0.5) mg/dL AST 12 (5-31) U/L ALT 9 (0-31) U/L Alkaline Phosphatase 45 (39-117) U/L Total Protein 7.3 (6.5-8.0) g/dL Albumin 4.4 (3.5-5.0) g/dL Lipase 28 (8-78) U/L Urine Color Yellow Urine Appearance Clear Urine pH 6.5 (5.0-9.0) Ur Specific [place] 1.025 (1.005-1.025) Urine Protein Negative (Neg-Trace) mg/dL Urine Glucose (UA) Negative (Negative) mg/dL Urine Ketones Negative (Negative) mg/dL Urine Blood Trace (Negative) Urine Nitrite Negative (Negative) Ur Leukocyte Esterase Negative (Negative) Urine RBC 3-5 H (0-2) /HPF Urine WBC 0-5 (0-5) /HPF Ur Squamous Epith Cells 0-2 (0-2) /HPF Urine Bacteria None Seen (None Seen) Hyaline Casts 0-2 (0-2) /LPF Urine Test (NEGATIVE) Stool Occult Blood (NEGATIVE) 06/14/22 06/14/22 Range/Units 12:10 13:48 WBC (4.8-10.8) X10*3/uL RBC (4.20-5.50) X10*6/uL Hgb (12.0-16.0) g/dl Hct (37.0-47.0) % MCV (80.0-98.0) fL MCH (27.0-33.0) pg MCHC (31.0-35.0) g/dl RDW (11.0-16.0) % Plt Count (160-400) X10*3/uL MPV (9.4-12.3) fL Immature Gran % (Auto) (0.0-0.4) % Neut % (Auto) (45-73) % Lymph % (Auto) (20-40) % [place] % (Auto) (2-11) % Eos % (Auto) (0-4) % Baso % (Auto) (0-2) % Lymph # (Auto) (1.2-4.9) X10*3/uL [place] # (Auto) (0.1-1.2) X10*3/uL Eos # (Auto) (0.0-0.4) X10*3/uL Baso # (Auto) (0.0-0.2) X10*3/uL Abs Immat Gran (auto) (0.00-0.03) X10*3/uL Absolute Neuts (auto) (2.0-8.3) x10*3/uL Absolute Nucleated RBC (0.0-0.012) X10*3/uL Nucleated RBC % (auto) (0.0-0.2) /100WBC Sodium (135-145) mmol/L Potassium (3.3-5.1) mmol/L Chloride (96-108) mmol/L Carbon Dioxide (22-29) mmol/L Anion Gap (12-20) BUN (9-16) mg/dL Creatinine (0.5-1.4) mg/dL Estim Creat Clear Calc Estimated GFR Random Glucose (60-115) mg/dL Calcium (8.4-10.2) mg/dL Magnesium (1.6-2.6) mg/dL Total Bilirubin (0.0-1.0) mg/dL Direct Bilirubin (0.0-0.5) mg/dL AST (5-31) U/L ALT (0-31) U/L Alkaline Phosphatase (39-117) U/L Total Protein (6.5-8.0) g/dL Albumin (3.5-5.0) g/dL Lipase (8-78) U/L Urine Color Urine Appearance Urine pH (5.0-9.0) Ur Specific [place] (1.005-1.025) Urine Protein (Neg-Trace) mg/dL Urine Glucose (UA) (Negative) mg/dL Urine Ketones (Negative) mg/dL Urine Blood (Negative) Urine Nitrite (Negative) Ur Leukocyte Esterase (Negative) Urine RBC (0-2) /HPF Urine WBC (0-5) /HPF Ur Squamous Epith Cells (0-2) /HPF Urine Bacteria (None Seen) Hyaline Casts (0-2) /LPF Urine Test NEGATIVE (NEGATIVE) Stool Occult Blood NEGATIVE (NEGATIVE) Discharge Plan Discharge Clinical Impression: Hemorrhoids Patient Disposition: Home, Self-Care Instructions: Hemorrhoids (DC) Prescriptions: No Action trazodone 50 mg tablet 50 mg PO BEDTIME PRN (Reason: sleep) 90 Days Qty: 90 0RF Paxlovid (EUA) 300 mg (150 mg x 2)-100 mg tablets,dose pack See Rx Instructions .ROUTE .COMPLEX Qty: 30 0RF Rx Instructions: take TWO 150 mg tablets of nirmatrelvir with ONE 100 mg tablet of ritonavir twice daily for 5 days ondansetron 4 mg tablet,disintegrating 4 mg PO Q6H PRN (Reason: nausea and vomiting) Qty: 14 0RF sertraline 25 mg tablet 25 mg PO DAILY hydroxyzine pamoate 50 mg capsule 50 mg PO BID PRN polyethylene glycol 3350 [Miralax] 17 gram/dose powder 17 g PO DAILY Qty: 510 2RF sennosides [Natural Senna Laxative] 8.6 mg tablet 8.6 mg PO BEDTIME Qty: 90 3RF pantoprazole 40 mg tablet,delayed release (DR/EC) 40 mg PO DAILY Qty: 90 2RF Rx Instructions: take one tablet half an hour before breakfast famotidine [Pepcid] 20 mg tablet 20 mg PO BEDTIME Qty: 30 3RF Referrals: Samina Osullivan MD [Primary Care Provider] - 06/15/22 Print Language: French
[2022-06-14 12:01] VITALS: BP 136/85; PULSE 81; RESP 19; TEMP 36.6; O2SAT 100; BMI 25.2
[2022-06-14 12:15] LABS: MANUAL DIFF FLAG NO
[2022-06-14 12:20] LABS: Appearance Urine Clear; Basophils Absolute Auto 0.1 X10*3/uL (0.0-0.2); Basophils Percent Auto 0.7 % (0-2); Color Urine Yellow; Eosinophils Absolute Auto 0.1 X10*3/uL (0.0-0.4); Eosinophils Percent Auto 0.8 % (0-4); Glucose Urine UA Negative (Negative); Hematocrit 39.7 % (37.0-47.0); Hemoglobin 12.6 g/dl (12.0-16.0); Imm Gran Abs Auto 0.03 X10*3/uL (0.00-0.03); Imm Gran Pct Auto 0.4 % (0.0-0.4); Leukocyte Esterase Urine Negative (Negative); Lymphocytes Absolute Auto 2.6 X10*3/uL (1.2-4.9); Lymphocytes Percent Auto 35.8 % (20-40); Mean Corpuscular HGB Conc 31.7 g/dl (31.0-35.0); Mean Corpuscular Hemoglobin 27.8 pg (27.0-33.0); Mean Corpuscular Volume 87.6 fL (80.0-98.0); Mean Platelet Volume 10.2 fL (9.4-12.3); Monocytes Absolute Auto 0.6 X10*3/uL (0.1-1.2); Monocytes Percent Auto 8.4 % (2-11); Neutrophils Percent Auto 53.9 % (45-73); Nitrite Urine Negative (Negative); PH 6.5 (5.0-9.0); Platelet Count 213 X10*3/uL (160-400); Red Blood Count 4.53 X10*6/uL (4.20-5.50); Red Cell Distribution Width 13.2 % (11.0-16.0); Specific Gravity - Urine 1.025 (1.005-1.025); UMIC TRIGGER UACC YES; Urine Blood Trace (Negative); Urine Ketones Negative (Negative); Urine Protein Negative (Neg-Trace); White Blood Count 7.4 X10*3/uL (4.8-10.8)
[2022-06-14 12:22] LABS: UPreg QC Valid YES; Urine Pregnancy NEGATIVE (NEGATIVE)
[2022-06-14 12:23] LABS: Bacteria Urine None Seen (None Seen); Hyaline Casts Urine 0-2 /LPF (0-2); Squamous Epithelial Cell Urine 0-2 /HPF (0-2); WBC Urine 0-5 /HPF (0-5)
[2022-06-14 12:32] LABS: Alanine Aminotransferase 9 U/L (0-31); Albumin Level 4.4 g/dL (3.5-5.0); Alkaline Phosphatase 45 U/L (39-117); Anion Gap 8 (12-20); Aspartate Amino Transferase 12 U/L (5-31); Bilirubin Direct 0.2 mg/dL (0.0-0.5); Bilirubin Total 0.6 mg/dL (0.0-1.0); Blood Urea Nitrogen 10 mg/dL (9-16); Calcium 9.2 mg/dL (8.4-10.2); Carbon Dioxide 30 mmol/L (22-29); Chloride 105 mmol/L (96-108); Estimated Glomerular Filt Rate > 60; Glucose Random 90 mg/dL (60-115); Lipase 28 U/L (8-78); Potassium 4.2 mmol/L (3.3-5.1); Sodium 139 mmol/L (135-145); Total Protein 7.3 g/dL (6.5-8.0)
[2022-06-14 13:52] LABS: OBS1 NEGATIVE (NEGATIVE)
[2022-06-14 13:53] LABS: OBS Int Ctl Valid YES
--- NOTE | 2022-06-14 13:53 | ED_ITS ---
HPI - GI Bleed General Chief complaint: GI Bleed Stated complaint: Blood in Stool Time Seen by Provider: 06/14/22 13:04 History of Present Illness HPI Narrative: Patient is a 32-year-old male presented today with having blood mixed with hard stool. Patient denies any pain per rectum. No fever no chills. No systemic complaints. No history of bloody urine. No pain on urination. No abdominal pain. Patient from home. No nausea no vomiting. Patient not on blood thinners. Related Data Home Medications Medication Instructions Recorded Confirmed hydroxyzine pamoate 50 mg capsule 50 mg PO BID PRN 12/08/21 sertraline 25 mg tablet 25 mg PO DAILY 12/08/21 Previous Rx's Medication Instructions Recorded nirmatrelvir 300 mg (150 mg See Rx Instructions PO .COMPLEX 02/11/22 x2)-ritonavir 100 mg tablet,dose #30 ea pack(EUA) (Paxlovid) ondansetron 4 mg disintegrating 4 mg PO Q6H PRN nausea and 02/11/22 tablet vomiting #14 tabs trazodone 50 mg tablet 50 mg PO BEDTIME PRN sleep 90 days 03/05/22 #90 tabs famotidine 20 mg tablet (Pepcid) 20 mg PO BEDTIME #30 tabs 03/09/22 pantoprazole 40 mg tablet,delayed 40 mg PO DAILY #90 tabs 03/09/22 release polyethylene glycol 3350 17 17 g PO DAILY #510 grams 03/09/22 gram/dose oral powder (Miralax) sennosides 8.6 mg tablet (Natural 8.6 mg PO BEDTIME constipation #90 03/09/22 Senna Laxative) tabs Allergies Allergy/AdvReac Type Severity Reaction Status Date / Time No Known Allergies Allergy Verified 06/14/22 12:01 [No Known Allergies*] Review of Systems Review of Systems: Positive bright red blood per rectum along with normal stool Yes all other systems are reviewed and are negative PMFSH Past Medical History Attestation statement: The following information was validated with the patient. Medical History Chest pain Chronic GERD Duodenitis SAMRA (generalized anxiety disorder) Hiatal hernia Left knee pain Migraines Mild recurrent major depression Right knee pain Surgical History History of esophagogastroduodenoscopy (EGD) Hx of cholecystectomy Hx of tubal ligation Family History Family History Mother Diabetes Arthritis Father Diabetes Arthritis Sister Cancer Social History Social History Housing: House Alcohol intake: never Patient Tobacco Use Status: Never used Tobacco e-Cigarette/Vaping Use: Never Used Second Hand Smoke Exposure: No Advance Directives: No Advance Directives Information Provided: No service: No Current occupational status: employed 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 Oriented X3. No acute distress. Eyes: Pupils equal, round and reactive to light. ENT: Pharynx normal. Neck: Normal inspection. Neck supple. No lymph nodes noted. No crepitus CVS: Normal heart rate and rhythm. Pulses normal. Normal S1 and S2 Respiratory: No respiratory distress. Breath sounds normal. No Wheezing. No rales Abdomen: Soft and nontender. No rigidity. No distention. good BS x4 Rectal exam done with nursing present. Only mucus was noted. Positive external hemorrhoids noted. No blood Skin: Skin warm and dry. Normal skin color. Normal skin turgor. Extremities: No lower extremity edema. Neurovascular intact to all extremities. No Lacerations. No Rash Neuro: Oriented X 3. No motor deficit. No sensory deficit. Moving all extermities. No slurred speech Medical Decision Making Medical Decision Making MDM Narrative: Patient complaining of bright red blood noted in the toilet bowl. She also has normal formed stool. No abdominal pain. No history of any colonoscopy. Jose C cade's rectal exam showed external hemorrhoids. Only mucus was noted. Guaiac was sent anyway was grossly negative. Patient's hemoglobin is 12. She is well appearing. Question bleeding secondary to hemorrhoidal bleed. No evidence for more substantial GI bleed as patient have formed stool and have bright red blood noted on toilet bowl. Not melanotic. Patient is not on NSAIDs. No abdominal pain. No history of alcohol use. Vital signs are normal. Will discharge patient. Differential Diagnosis Differential Diagnoses: The differential diagnosis associated with the presentation includes Hemorrhoidal bleed, anal fissure, diverticulosis, other causes of GI bleed Lab Data MDM Lab Attestation statement: I reviewed the patient's lab results. 06/14/22 12:10 06/14/22 12:09 Labs: Lab Results 06/14/22 06/14/22 06/14/22 Range/Units 12:09 12:10 12:10 WBC 7.4 (4.8-10.8) X10*3/uL RBC 4.53 (4.20-5.50) X10*6/uL Hgb 12.6 (12.0-16.0) g/dl Hct 39.7 (37.0-47.0) % MCV 87.6 (80.0-98.0) fL MCH 27.8 (27.0-33.0) pg MCHC 31.7 (31.0-35.0) g/dl RDW 13.2 (11.0-16.0) % Plt Count 213 (160-400) X10*3/uL MPV 10.2 (9.4-12.3) fL Immature Gran % (Auto) 0.4 (0.0-0.4) % Neut % (Auto) 53.9 (45-73) % Lymph % (Auto) 35.8 (20-40) % [place] % (Auto) 8.4 (2-11) % Eos % (Auto) 0.8 (0-4) % Baso % (Auto) 0.7 (0-2) % Lymph # (Auto) 2.6 (1.2-4.9) X10*3/uL [place] # (Auto) 0.6 (0.1-1.2) X10*3/uL Eos # (Auto) 0.1 (0.0-0.4) X10*3/uL Baso # (Auto) 0.1 (0.0-0.2) X10*3/uL Abs Immat Gran (auto) 0.03 (0.00-0.03) X10*3/uL Absolute Neuts (auto) 4.0 (2.0-8.3) x10*3/uL Absolute Nucleated RBC 0.000 (0.0-0.012) X10*3/uL Nucleated RBC % (auto) 0.0 (0.0-0.2) /100WBC Sodium 139 (135-145) mmol/L Potassium 4.2 (3.3-5.1) mmol/L Chloride 105 (96-108) mmol/L Carbon Dioxide 30 H (22-29) mmol/L Anion Gap 8 L (12-20) BUN 10 (9-16) mg/dL Creatinine 0.78 (0.5-1.4) mg/dL Estim Creat Clear Calc 90.0 Estimated GFR > 60 Random Glucose 90 (60-115) mg/dL Calcium 9.2 (8.4-10.2) mg/dL Magnesium 2.0 (1.6-2.6) mg/dL Total Bilirubin 0.6 (0.0-1.0) mg/dL Direct Bilirubin 0.2 (0.0-0.5) mg/dL AST 12 (5-31) U/L ALT 9 (0-31) U/L Alkaline Phosphatase 45 (39-117) U/L Total Protein 7.3 (6.5-8.0) g/dL Albumin 4.4 (3.5-5.0) g/dL Lipase 28 (8-78) U/L Urine Color Yellow Urine Appearance Clear Urine pH 6.5 (5.0-9.0) Ur Specific [place] 1.025 (1.005-1.025) Urine Protein Negative (Neg-Trace) mg/dL Urine Glucose (UA) Negative (Negative) mg/dL Urine Ketones Negative (Negative) mg/dL Urine Blood Trace (Negative) Urine Nitrite Negative (Negative) Ur Leukocyte Esterase Negative (Negative) Urine RBC 3-5 H (0-2) /HPF Urine WBC 0-5 (0-5) /HPF Ur Squamous Epith Cells 0-2 (0-2) /HPF Urine Bacteria None Seen (None Seen) Hyaline Casts 0-2 (0-2) /LPF Urine Test (NEGATIVE) Stool Occult Blood (NEGATIVE) 06/14/22 06/14/22 Range/Units 12:10 13:48 WBC (4.8-10.8) X10*3/uL RBC (4.20-5.50) X10*6/uL Hgb (12.0-16.0) g/dl Hct (37.0-47.0) % MCV (80.0-98.0) fL MCH (27.0-33.0) pg MCHC (31.0-35.0) g/dl RDW (11.0-16.0) % Plt Count (160-400) X10*3/uL MPV (9.4-12.3) fL Immature Gran % (Auto) (0.0-0.4) % Neut % (Auto) (45-73) % Lymph % (Auto) (20-40) % [place] % (Auto) (2-11) % Eos % (Auto) (0-4) % Baso % (Auto) (0-2) % Lymph # (Auto) (1.2-4.9) X10*3/uL [place] # (Auto) (0.1-1.2) X10*3/uL Eos # (Auto) (0.0-0.4) X10*3/uL Baso # (Auto) (0.0-0.2) X10*3/uL Abs Immat Gran (auto) (0.00-0.03) X10*3/uL Absolute Neuts (auto) (2.0-8.3) x10*3/uL Absolute Nucleated RBC (0.0-0.012) X10*3/uL Nucleated RBC % (auto) (0.0-0.2) /100WBC Sodium (135-145) mmol/L Potassium (3.3-5.1) mmol/L Chloride (96-108) mmol/L Carbon Dioxide (22-29) mmol/L Anion Gap (12-20) BUN (9-16) mg/dL Creatinine (0.5-1.4) mg/dL Estim Creat Clear Calc Estimated GFR Random Glucose (60-115) mg/dL Calcium (8.4-10.2) mg/dL Magnesium (1.6-2.6) mg/dL Total Bilirubin (0.0-1.0) mg/dL Direct Bilirubin (0.0-0.5) mg/dL AST (5-31) U/L ALT (0-31) U/L Alkaline Phosphatase (39-117) U/L Total Protein (6.5-8.0) g/dL Albumin (3.5-5.0) g/dL Lipase (8-78) U/L Urine Color Urine Appearance Urine pH (5.0-9.0) Ur Specific [place] (1.005-1.025) Urine Protein (Neg-Trace) mg/dL Urine Glucose (UA) (Negative) mg/dL Urine Ketones (Negative) mg/dL Urine Blood (Negative) Urine Nitrite (Negative) Ur Leukocyte Esterase (Negative) Urine RBC (0-2) /HPF Urine WBC (0-5) /HPF Ur Squamous Epith Cells (0-2) /HPF Urine Bacteria (None Seen) Hyaline Casts (0-2) /LPF Urine Test NEGATIVE (NEGATIVE) Stool Occult Blood NEGATIVE (NEGATIVE) Discharge Plan Discharge Clinical Impression: Hemorrhoids Patient Disposition: Home, Self-Care Instructions: Hemorrhoids (DC) Prescriptions: No Action trazodone 50 mg tablet 50 mg PO BEDTIME PRN (Reason: sleep) 90 Days Qty: 90 0RF Paxlovid (EUA) 300 mg (150 mg x 2)-100 mg tablets,dose pack See Rx Instructions .ROUTE .COMPLEX Qty: 30 0RF Rx Instructions: take TWO 150 mg tablets of nirmatrelvir with ONE 100 mg tablet of ritonavir twice daily for 5 days ondansetron 4 mg tablet,disintegrating 4 mg PO Q6H PRN (Reason: nausea and vomiting) Qty: 14 0RF sertraline 25 mg tablet 25 mg PO DAILY hydroxyzine pamoate 50 mg capsule 50 mg PO BID PRN polyethylene glycol 3350 [Miralax] 17 gram/dose powder 17 g PO DAILY Qty: 510 2RF sennosides [Natural Senna Laxative] 8.6 mg tablet 8.6 mg PO BEDTIME Qty: 90 3RF pantoprazole 40 mg tablet,delayed release (DR/EC) 40 mg PO DAILY Qty: 90 2RF Rx Instructions: take one tablet half an hour before breakfast famotidine [Pepcid] 20 mg tablet 20 mg PO BEDTIME Qty: 30 3RF Referrals: Samina Osullivan MD [Primary Care Provider] - 06/15/22 Print Language: Scottish
== END 2022-06-14 14:18 | disposition home or self-care (01) ==
PROVIDERS: Physician Assistant; Emergency Provider Emergency Medicine Emergency Medical Services; PCP Internal Medicine
DX: K64.4 Residual hemorrhoidal skin tags (principal)
CPT/HCPCS: 36415; 80048; 80076; 81001; 81025; 82272; 83690; 83735; 85025; 99282; 99283

== ENCOUNTER 2022-06-27 12:10 | Outpatient (REF) | payer OTHER, SELFPAY ==
--- NOTE | 2022-06-27 10:15 | EMG_ITS ---
Please see scanned EMG / Nerve Conduction Report. MTDD
== END 2022-06-27 12:11 | disposition home or self-care (01) ==
LOC: HO.NEURO 12:10
PROVIDERS: PCP Internal Medicine; Visit Provider Orthopaedic Surgery
DX: R20.0 Anesthesia of skin (principal)
CPT/HCPCS: 95885; 95910

== ENCOUNTER → 2022-07-06 09:53 | Outpatient (BNVA) | payer OTHER, SELFPAY | PROVIDERS: PCP Internal Medicine; Visit Provider Nurse Practitioner Family | DX: K21.9 Gastro-esophageal reflux disease without esophagitis (principal); K58.1 Irritable bowel syndrome with constipation; K59.01 Slow transit constipation; R14.0 Abdominal distension (gaseous); Z80.0 Family history of malignant neoplasm of digestive organs | CPT/HCPCS: 99212 ==

== ENCOUNTER 2022-07-24 08:56 | Day surgery (SDC) | payer OTHER, SELFPAY ==
--- NOTE | 2022-07-20 12:08 | P.CONAN_ITS ---
Documented by User: Sherrell Martell NP 07/20/22 12:09 HPI - Anesthesia Eval Consult details Narrative: 32yo F for Upper Endoscopy and Colonoscopy s/p EGD 10/2021 with [facility] Active Problems Active Problems: All Active Problems (Updated 06/15/22 @ 00:15 by Background [employer]oma[place]) Tendinitis of left wrist (Acute) Numbness of left hand (Acute) COVID-19 (Acute) Hand deformities (Acute) Left hand pain (Acute) Duodenitis (Acute) Hiatal hernia (Acute) Insomnia (Acute) Left knee pain (Acute) Physical exam (Acute) Hemorrhoids (Acute) Screen for sexually transmitted diseases (Acute) Cervical cancer screening (Acute) Well woman exam with routine gynecological exam (Acute) Pelvic pain (Acute) Chronic GERD (Acute) Right knee pain (Acute) Left knee pain (Acute) SAMRA (generalized anxiety disorder) (Acute) Migraines (Acute) Mild recurrent major depression (Acute) Chest pain (Acute) Past Medical History Medical History Chest pain Chronic GERD Duodenitis SAMRA (generalized anxiety disorder) Hiatal hernia Left knee pain Migraines Mild recurrent major depression Right knee pain Family History Family History Mother Diabetes Arthritis Father Diabetes Arthritis Sister Cancer Family history of problems with anesthesia: No Surgical History Surgical History History of esophagogastroduodenoscopy (EGD) Hx of cholecystectomy Hx of tubal ligation History of Problems with Anesthesia: No Social History Social History Housing: House Alcohol intake: never Patient Tobacco Use Status: Never used Tobacco e-Cigarette/Vaping Use: Never Used Second Hand Smoke Exposure: No Advance Directives: No Advance Directives Information Provided: Yes service: No Current occupational status: employed 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 Current occupational exposures/hazards: No Cognitive needs: No Hearing needs: No Vision needs: Yes Meds Allergies Allergy/AdvReac Type Severity Reaction Status Date / Time No Known Allergies Allergy Verified 07/06/22 10:05 [No Known Allergies*] Home Medications Medication Instructions Recorded Confirmed Last Taken Type hydroxyzine pamoate 50 mg capsule 50 mg PO BID PRN allergies 12/08/21 07/24/22 Unknown History sertraline 25 mg tablet 25 mg PO DAILY 12/08/21 07/24/22 Unknown History Exam Exam Date and Time: July 20, 2022 1208 Pertinent Lab Results Pertinent Lab Results: Laboratory Tests 06/14/22 06/14/22 12:09 12:10 WBC 7.4 Hgb 12.6 Hct 39.7 Plt Count 213 Sodium 139 Potassium 4.2 Chloride 105 Carbon Dioxide 30 H BUN 10 Creatinine 0.78 Narrative Narrative: EKG 06/2021 Vent. Rate : 070 BPM ? ? Atrial Rate : 070 BPM ?? P-R Int : 148 ms? QRS Dur : 090 ms ? ? QT Int : 368 ms ? ? ? P-R-T Axes : 045 059 012 degrees ?? QTc Int : 397 ms ? Normal sinus rhythm Normal ECG No previous ECGs available Assessment and Plan Assessment Anesthesia Assessment: Chart Reviewed Final Anesthetic Review Family History of Problems with Anesthesia: No History of Problems with Anesthesia: No Documented by User: Miah Ceja MD 07/24/22 10:34 [facility] Past Medical History Medical History Chest pain Chronic GERD Duodenitis SAMRA (generalized anxiety disorder) Hiatal hernia Left knee pain Migraines Mild recurrent major depression Right knee pain Family History Family History Mother Diabetes Arthritis Father Diabetes Arthritis Sister Cancer Surgical History Surgical History History of esophagogastroduodenoscopy (EGD) Hx of cholecystectomy Hx of tubal ligation Social History Social History Housing: House Alcohol intake: never Patient Tobacco Use Status: Never used Tobacco e-Cigarette/Vaping Use: Never Used Second Hand Smoke Exposure: No Advance Directives: No Advance Directives Information Provided: Yes service: No Current occupational status: employed 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 Current occupational exposures/hazards: No Cognitive needs: No Hearing needs: No Vision needs: Yes Meds Allergies Allergy/AdvReac Type Severity Reaction Status Date / Time No Known Allergies Allergy Verified 07/06/22 10:05 [No Known Allergies*] Home Medications Medication Instructions Recorded Confirmed Last Taken Type hydroxyzine pamoate 50 mg capsule 50 mg PO BID PRN allergies 12/08/21 07/24/22 Unknown History sertraline 25 mg tablet 25 mg PO DAILY 12/08/21 07/24/22 Unknown History Exam Airway Mallampati Class: II TM Dist: >3cm Neck ROM: Full Loose/Missing/Broken Teeth: Yes Assessment and Plan Assessment Anesthesia Assessment: Anesthesia Plan Discussed Final Anesthetic Review NPO: Yes ASA Class: II Final Preanesthetic Review: No Changes in Pt Med Stat, Meds/Allgs Chart Reviewed, Consent Obtained/Reviewed and Anes Risks/Benef Reviewed Patient Risk: Low Procedure Risk: Low Anesthetic Plan Anesthetic Plan: MAC: Disposition: Standard PACU
[2022-07-24 09:59] LABS: Urine Pregnancy NEGATIVE (NEGATIVE)
[2022-07-24 10:00] LABS: UPreg QC Valid YES
[2022-07-24 10:36] VITALS: BP 117/72; PULSE 68; RESP 18; TEMP 37.2; O2SAT 98; BMI 23.8
[2022-07-24] MEDS: Lactated Ringers 1,000 ML 100 ML IVCONT (10:40)
--- NOTE | 2022-07-24 10:51 | MHC.SHP ---
Pre-Procedural Eval Section A Date of Service: 07/24/22 Section B Chief Complaint: reflux disease,constipation, Details of Present Illness: sister with crc Relevant Family History (Specify if Yes): Yes Relevant Social History: None Present Medications: see Short Stay Collaborative assessment Medical History: Significant History (Chest pain Chronic GERD Duodenitis SAMRA (generalized anxiety disorder) Hiatal hernia Left knee pain Migraines Mild recurrent major depression Right knee pain) History of Previous Operations: Relevant previous surgery/procedure and date(s) (History of esophagogastroduodenoscopy (EGD) Hx of cholecystectomy Hx of tubal ligation) Allergies: Allergies Allergy/AdvReac Type Severity Reaction Status Date / Time No Known Allergies Allergy Verified 07/06/22 10:05 [No Known Allergies*] Review of Systems Sugical H&P ROS: Negative: Constitution, Cardiovascular, Respiratory, Neurological, Psychiatric, Hem-Onc, Allergic/Immunologic, Gastrointestinal, Genitourinary, Musculoskeletal, Integumentary, Endocrine and Eyes/Ears/Nose/Throat Exam Surgical H&P Exam: Normal: HEENT, Normal: Heart, Normal: Lungs, Normal: Extremities, Normal: Abdomen, Normal: Skin and Normal: Neurological Plan Diagnosis/Plan: Unchanged I have reviewed the history and physical and performed a pertinent physical examination on my patient. No changes have occurred unless specified. Time Spent With Patient Time: Total time managing care of this patient today ____ minutes.
--- NOTE | 2022-07-24 10:54 | P.OP_ITS ---
Operative Note Operative Note Date of Service: 07/24/22 Narrative: Operative Information Procedure Description: EGD, Colonoscopy Indication: GERD, FH of CRC Anesthesia: MAC FLEXIBLE TRANSORAL UPPER GASTROINTESTINAL ENDOSCOPY AND COLONOSCOPY PROCEDURE NOTE UPPER ENDOSCOPY Consent: Indications for the procedure and potential complications of bleeding, perforation, reaction to medications and missed diagnosis were discussed with the patient and informed consent was obtained. Instrument: Olympus GIF H 190 J mid size upper endoscope Monitoring: Vital signs and clinical assessment, continuous EKG monitoring, Pulse oximetry, Carbon Dioxide monitoring and blood pressure monitoring were done throughout the procedure. Procedure: The patient was placed in the left lateral decubitis position and pre-procedure medications were administered and a bite block was placed. The endoscope was inserted into the mouth and advanced under direct vision to the third part of duodenum. A careful inspection was made as the upper endoscope was withdrawn including a retroflexed examination of the proximal stomach; Findings and interventions are described below. Findings: Larynx:normal Esophagus: GE junction at 37 cm, diaphragm hiatus at 37 cm, erythema at the distal esophagus and some bogginess and congestion at GEJ, bx taken Stomach: Normal mucosa. Biopsies were obtained. Grade 3 flap valve on retroflexed examination of the cardia. LES was v lax. Duodenum: Mild duodenitis, bx taken Intervention: Biopsies as noted above COLONOSCOPY Instrument: Olympus variable stiffness pediatric scope 190L Colonoscopy Monitoring: Vital signs and clinical assessment, continuous EKG monitoring, Pulse oximetry, Carbon Dioxide monitoring and blood pressure monitoring were done throughout the procedure. Colon withdrawal time was 8 minutes. Procedure: The patient was placed in the left lateral decubitis position and pre-procedure medications were administered. After a digital rectal examination of the ano-rectum, the video colonoscope was inserted into the rectum and advanced through the colon to the cecum/TI. The colonoscope was slowly withdrawn in a retrograde panoramic fashion and the colon mucosa was carefully examined including a retroflexed view of the rectum. Findings and interventions are described below. Procedure Difficulty: Findings: Terminal Ileum- patchy erythema, bx taken bx taken from right, left and rectum in separate jars Cecum:normal Ascending Colon: normal Transverse Colon -normal Descending Colon:normal Sigmoid Colon: normal Rectum: Retroflexion with small internal hemorrhoids, grade I Anorectum - normal Colon preparation: [place] Bowel Preparation Scale Right colon; 2 Transverse colon: 2 Left colon; 2 (0 = Unprepared colon segment with mucosa not seen due to solid stool that cannot be cleared. 1 = Portion of mucosa of the colon segment seen, but other areas of the colon segment not well seen due to staining, residual stool and/or opaque liquid. 2 = Minor amount of residual staining, small fragments of stool and/or opaque liquid, but mucosa of colon segment seen well. 3 = Entire mucosa of colon segment seen well with no residual staining, small fragments of stool or opaque liquid) Impression and Post Procedure Diagnosis: Endoscopy Findings: esophagitis lax LES Colonoscopy Findings: ileitis internal hemorrhoids Plan: Await Pathology results Repeat Colonoscopy in 5 years due to FH of CRC or earlier if clinically indicated High fiber diet leaflet avoid straining at stool, epsom salts and sitz bath, anusol supps or cream might need CTe or Mre, vs capsule if concern for crohns check compliance with PPI Above findings were reviewed with the patient and relevant handouts were provided if indicated.
[2022-07-24 11:35] VITALS: BP 109/66; PULSE 88; RESP 18; TEMP 36.7; O2SAT 99
[2022-07-24 11:50] VITALS: BP 120/72; PULSE 84; RESP 18; TEMP 36.8; O2SAT 96
[2022-07-24 12:05] VITALS: BP 118/78; PULSE 70; RESP 18; TEMP 37.2; O2SAT 100
== END 2022-07-24 12:58 | disposition home or self-care (01) ==
PROVIDERS: Anesthesiology; PCP Internal Medicine; Visit Provider Internal Medicine Gastroenterology
PROC: (CPT 45380; principal; 2022-07-24 11:50)
DX: K58.1 Irritable bowel syndrome with constipation (principal); Z80.0 Family history of malignant neoplasm of digestive organs; K64.0 First degree hemorrhoids; R14.0 Abdominal distension (gaseous); K21.9 Gastro-esophageal reflux disease without esophagitis; K22.4 Dyskinesia of esophagus; K29.80 Duodenitis without bleeding; K20.80 Other esophagitis without bleeding; K29.50 Unspecified chronic gastritis without bleeding; K44.9 Diaphragmatic hernia without obstruction or gangrene; G43.909 Migraine, unspecified, not intractable, without status migrainosus; F33.0 Major depressive disorder, recurrent, mild; F41.1 Generalized anxiety disorder; Z90.49 Acquired absence of other specified parts of digestive tract; Z79.899 Other long term (current) drug therapy
CPT/HCPCS: 45380; 43239; 81025; 88305; 88342

== ENCOUNTER 2022-08-06 09:16 | Emergency (ER) | payer OTHER, SELFPAY ==
[2022-08-06 09:27] VITALS: BP 132/79; PULSE 85; RESP 18; TEMP 36.6; O2SAT 99; BMI 24.1
--- NOTE | 2022-08-06 10:09 | ED_ITS ---
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 Patient states that since 08/03/2022 she has had a headache with nausea and vomiting. Patient states that her most recent episode of vomiting had blood tinged specks in it. Patient denies any dizziness, lightheadedness, abdominal pain, fever, chills, blurry vision, double vision, loss of vision, chest pain, difficulty breathing, shortness of breath, back pain, night sweats, pain with urination, increased urinary frequency, increased urinary urgency, blood in her urine or stool, syncope or a near syncopal episode, recent trauma or falls, bowel incontinence, bladder incontinence, bowel retention, bladder retention, or any other complaints at this time. Onset (ago): day(s) (3) Severity: mild Severity scale (1-10): 2 Relieving factors: none Exacerbating factors: none Associated symptoms: headaches and nausea/vomiting Treatments prior to arrival: none Related Data Home Medications Medication Instructions Recorded Confirmed hydroxyzine pamoate 50 mg capsule 50 mg PO BID PRN allergies 12/08/21 07/24/22 sertraline 25 mg tablet 25 mg PO DAILY 12/08/21 07/24/22 Previous Rx's Medication Instructions Recorded nirmatrelvir 300 mg (150 mg See Rx Instructions PO .COMPLEX 02/11/22 x2)-ritonavir 100 mg tablet,dose #30 ea pack(EUA) (Paxlovid) ondansetron 4 mg disintegrating 4 mg PO Q6H PRN nausea and 02/11/22 tablet vomiting #14 tabs trazodone 50 mg tablet 50 mg PO BEDTIME PRN sleep 90 days 03/05/22 #90 tabs famotidine 20 mg tablet (Pepcid) 20 mg PO BEDTIME #30 tabs 03/09/22 pantoprazole 40 mg tablet,delayed 40 mg PO DAILY #90 tabs 03/09/22 release polyethylene glycol 3350 17 17 g PO DAILY #510 grams 03/09/22 gram/dose oral powder (Miralax) bisacodyl 5 mg tablet,delayed 10 mg PO ONCE 1 day #2 tabs 07/06/22 release (Dulcolax (bisacodyl)) polyethylene glycol 3350 17 238 g PO ONCE #238 grams 07/06/22 gram/dose oral powder (Miralax) sennosides 8.6 mg tablet (Natural 17.2 mg PO BEDTIME constipation 07/06/22 Senna Laxative) #180 tabs ondansetron 4 mg disintegrating 4 mg PO Q8H 3 days #9 tabs 08/06/22 tablet Allergies Allergy/AdvReac Type Severity Reaction Status Date / Time No Known Allergies Allergy Verified 08/06/22 09:27 [No Known Allergies*] Review of Systems Constitutional: Constitutional: Reports no additional constitutional complaints, Denies chills, Denies fever(s), Reports headache(s) and Denies night sweats Eyes: Eyes: Reports no additional eye complaints, Denies blurry vision, Denies change in vision, Denies diplopia, Denies eye discharge, Denies loss of vision and Denies eye pain ENT: Denies dizziness and Reports headache(s) Cardiovascular: Cardiovascular: Reports no additional cardiovascular complaints, Denies chest pain, Denies lightheadedness, Denies Loss of Conscious ness and Denies dyspnea Respiratory: Respiratory: Reports no additional respiratory complaints and Denies dyspnea Gastrointestinal: Gastrointestinal: Reports no additional gastrointestinal com plaints, Denies abdominal pain, Denies melena, Denies hematochezia, Denies change in bowel habits, Denies change in stool character, Reports nausea and Reports vomiting Genitourinary: Genitourinary: Denies hematuria, Denies urinary frequency, Den ies dysuria, Denies urinary incontinence, Denies urinary hesitancy and Denies urinary urgency Musculoskeletal: Musculoskeletal: Reports no additional musculoskeletal complaints, Denies numbness and Denies tingling Neurologic: Denies dizziness, Reports headache(s), Denies loss of vision, Denies numbness and Denies tingling Psychiatric: Psychiatric: Reports no additional psychiatric complaints Endocrine: Endocrine: Reports no additional endocrine complaints Hematologic/Lymphatic: Hematologic/Lymphatic: Reports no additional hematologic/lymphatic complaints Allergic/Immunologic: Allergic/Immunologic: Reports no additional allergic/immunologic complaints PMFSH Past Medical History Attestation statement: The following information was validated with the patient. Source: old records reviewed and nursing notes reviewed Medical History Chest pain Chronic GERD Duodenitis SAMRA (generalized anxiety disorder) Hiatal hernia Left knee pain Migraines Mild recurrent major depression Right knee pain Surgical History History of esophagogastroduodenoscopy (EGD) Hx of cholecystectomy Hx of tubal ligation Family History Family History Mother Diabetes Arthritis Father Diabetes Arthritis Sister Cancer Social History Social History Housing: House Alcohol intake: never Patient Tobacco Use Status: Never used Tobacco Smoked in Last 30 Days: No e-Cigarette/Vaping Use: Never Used Second Hand Smoke Exposure: No Use of substances other than those prescribed or required for medical reasons: No Advance Directives: No Advance Directives Information Provided: Yes service: No Current occupational status: employed 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 Current occupational exposures/hazards: No Cognitive needs: No Hearing needs: No Vision needs: Yes Physical Exam ED Vital Signs: Vital Signs - 24 hr 08/06/22 09:27 08/06/22 10:14 08/06/22 10:24 Temperature 98 F 98.6 F Pulse Rate 85 87 Respiratory Rate 18 18 Blood Pressure 132/79 117/79 Pulse Oximetry 99 100 Oxygen Delivery Method Room Air Room Air Room Air BMI result Body Mass Index 24.1 Const General: cooperative, no acute distress, alert and awake Nutritional Appearance: well nourished Orientation/consciousness: patient oriented x3 Limitations: no limitations HENMT Head: Yes normal to inspection and Yes atraumatic Ears: hearing grossly normal bilaterally and external ears normal General nose exam: Normal external nose present, no nasal discharge noted and no epistaxis Face and sinus: Yes normal facial exam, No abrasion and No laceration Mouth: Normal oral and palatal mucosa present, no drooling and no muffled voice Eyes General: appearance normal, both eyes and all related structures Periorbital: periorbital findings normal Eyelids: Yes eyelids normal Conjunctivae: conjunctivae normal Pupils: Equal, round and reactive pupils present EOM: EOMs intact bilaterally Neck Neck: Yes normal visual inspection, Yes full ROM and Yes no lymphadenopathy Chest Chest palpation & inspection: normal inspection of the chest Resp Effort & Inspection: normal respiratory effort and able to speak in complete sentences Auscultation: clear to auscultation bilaterally Cardio Rate: regular rate Rhythm: regular rhythm GI Inspection: Yes normal to inspection Palpation (GI): Soft to palpation, not firm, nontender, no guarding and not rigid Neuro General: patient oriented x3 and moves all extremities Cranial nerves: Yes Equal, round and reactive pupils present Cognition (Neuro): normal cognition Motor exam (neuro): 5/5 motor strength present throughout Sensory Exam: Normal double simultaneous stimulation for sensation Coordination: [id number] test normal Extrem General: Yes normal to inspection, Yes full ROM and Yes capillary refill normal Psych Appearance: grossly normal Mental Status: mental status grossly normal Affect: normal affect Attitude: cooperative Thought process: Normal thought process present Thought content: Normal thought content present Insight: Good insight present (Psych) Medications Administered Discontinued Medications Generic Name Dose Route Start Last Admin Trade Name Freq PRN Reason Stop Dose Admin Sodium Chloride 1,000 mls @ 999 mls/hr 08/06/22 11:15 08/06/22 12:48 Ns IV 08/06/22 12:15 Infused .Q1H1M MORENA Infusion Ketorolac Tromethamine 15 mg 08/06/22 11:11 08/06/22 11:35 Ketorolac Tromethamine 15 Mg/Ml Vial IVPUSH 08/06/22 11:12 15 mg ONCE ONE Administration Metoclopramide HCl 10 mg 08/06/22 11:11 08/06/22 11:35 Metoclopramide Hcl 10 Mg/2 Ml Vial IVPUSH 08/06/22 11:12 10 mg ONCE ONE Administration Medical Decision Making Medical Decision Making [facility] Narrative: Patient is a 32 year old assigned female at with a history of migraines presenting to the emergency department today with nausea, vomiting, and a headache. Patient's physical exam was unremarkable. Patient's blood work was unremarkable. I explained my physical exam findings as well as all test results to the patient. I answered all questions asked by the patient. Patient received IV Toradol and anti-emetic medication which she stated helped her symptoms significantly. I stressed the importance of the patient taking her medication as prescribed. I stressed the importance of the patient following up with her [facility] care provider and neurologist. I stressed the importance of the patient returning to the emergency department immediately if her symptoms were to worsen or if she were to develop any dizziness, shortness of breath, difficulty breathing, chest pain, blurry vision, loss of vision, nausea, vomiting, abdominal pain, fever, chills, back pain, or any other complaints. Patient verbalized agreement and understanding with this treatment plan and discharge. Differential Diagnosis Differential Diagnoses: The differential diagnosis associated with the presentation includes migraine headache, nausea Lab Data MDM Lab Attestation statement: I reviewed the patient's lab results. My interpretation of these studies and their corresponding values is that they are grossly normal. 08/06/22 10:27 08/06/22 10:27 Labs: Lab Results 08/06/22 08/06/22 08/06/22 Range/Units 10:27 10:27 10:27 WBC 5.9 (4.8-10.8) X10*3/uL RBC 4.36 (4.20-5.50) X10*6/uL Hgb 12.2 (12.0-16.0) g/dl Hct 37.7 (37.0-47.0) % MCV 86.5 (80.0-98.0) fL MCH 28.0 (27.0-33.0) pg MCHC 32.4 (31.0-35.0) g/dl RDW 13.1 (11.0-16.0) % Plt Count 191 (160-400) X10*3/uL MPV 10.4 (9.4-12.3) fL Immature Gran % (Auto) 0.3 (0.0-0.4) % Neut % (Auto) 64.4 (45-73) % Lymph % (Auto) 25.4 (20-40) % [place] % (Auto) 8.0 (2-11) % Eos % (Auto) 1.2 (0-4) % Baso % (Auto) 0.7 (0-2) % Lymph # (Auto) 1.5 (1.2-4.9) X10*3/uL [place] # (Auto) 0.5 (0.1-1.2) X10*3/uL Eos # (Auto) 0.1 (0.0-0.4) X10*3/uL Baso # (Auto) 0.0 (0.0-0.2) X10*3/uL Abs Immat Gran (auto) 0.02 (0.00-0.03) X10*3/uL Absolute Neuts (auto) 3.8 (2.0-8.3) x10*3/uL Absolute Nucleated RBC 0.000 (0.0-0.012) X10*3/uL Nucleated RBC % (auto) 0.0 (0.0-0.2) /100WBC Sodium 143 (135-145) mmol/L Potassium 3.9 (3.3-5.1) mmol/L Chloride 106 (96-108) mmol/L Carbon Dioxide 28 (22-29) mmol/L Anion Gap 13 (12-20) BUN 7 L (9-16) mg/dL Creatinine 0.73 (0.5-1.4) mg/dL Estim Creat Clear Calc 91.5 Estimated GFR > 60 Random Glucose 98 (60-115) mg/dL Calcium 9.1 (8.4-10.2) mg/dL Magnesium 2.1 (1.6-2.6) mg/dL Total Bilirubin 0.5 (0.0-1.0) mg/dL AST 12 (5-31) U/L ALT 5 (0-31) U/L Alkaline Phosphatase 42 (39-117) U/L Total Protein 7.0 (6.5-8.0) g/dL Albumin 4.2 (3.5-5.0) g/dL Beta HCG, Quant < 2 mIU/mL Urine Color Yellow Urine Appearance Clear Urine pH 8.5 (5.0-9.0) Ur Specific [place] <= 1.005 (1.005-1.025) Urine Protein Negative (Neg-Trace) mg/dL Urine Glucose (UA) Negative (Negative) mg/dL Urine Ketones Negative (Negative) mg/dL Urine Blood Negative (Negative) Urine Nitrite Negative (Negative) Ur Leukocyte Esterase Negative (Negative) Discharge Plan Discharge Clinical Impression: Migraine Patient Disposition: Home, Self-Care Instructions: Migraine Headache (ED) Additional Instructions: Follow up with your primary care provider and a neurologist. Return to the emergency department immediately if your symptoms worsen or if you develop any dizziness, shortness of breath, difficulty breathing, chest pain, blurry vision, loss of vision, nausea, vomiting, abdominal pain, fever, chills, back pain, or any other complaints. Mone un seguimiento con harris proveedor de atenci?n primaria y un neur?logo. Regrese al departamento de emergencias de inmediato si je s?ntomas empeoran o si presenta mareos, falta de aire, dificultad para respirar, dolor de pecho, v daryl?n borrosa, p?rdida de la visi?n, n?useas, v?mitos, dolor abdominal, fiebre, escalofr?os, dolor de espalda o cualquier otras quejas. Prescriptions: New ondansetron 4 mg tablet,disintegrating 4 mg PO Q8H 3 Days Qty: 9 0RF No Action trazodone 50 mg tablet 50 mg PO BEDTIME PRN (Reason: sleep) 90 Days Qty: 90 0RF Paxlovid (EUA) 300 mg (150 mg x 2)-100 mg tablets,dose pack See Rx Instructions .ROUTE .COMPLEX Qty: 30 0RF Rx Instructions: take TWO 150 mg tablets of nirmatrelvir with ONE 100 mg tablet of ritonavir twice daily for 5 days ondansetron 4 mg tablet,disintegrating 4 mg PO Q6H PRN (Reason: nausea and vomiting) Qty: 14 0RF sennosides [Natural Senna Laxative] 8.6 mg tablet 17.2 mg PO BEDTIME Qty: 180 3RF bisacodyl [Dulcolax (bisacodyl)] 5 mg tablet,delayed release (DR/EC) 10 mg PO ONCE 1 Days Qty: 2 0RF Rx Instructions: take 2 tabs at noon the day before your colonoscopy polyethylene glycol 3350 [Miralax] 17 gram/dose powder 238 g PO ONCE Qty: 238 0RF Rx Instructions: As directed by gastroenterology department at [facility] sertraline 25 mg tablet 25 mg PO DAILY hydroxyzine pamoate 50 mg capsule 50 mg PO BID PRN (Reason: allergies) polyethylene glycol 3350 [Miralax] 17 gram/dose powder 17 g PO DAILY Qty: 510 2RF pantoprazole 40 mg tablet,delayed release (DR/EC) 40 mg PO DAILY Qty: 90 2RF Rx Instructions: take one tablet half an hour before breakfast famotidine [Pepcid] 20 mg tablet 20 mg PO BEDTIME Qty: 30 3RF Referrals: [facility] Neuro/Sleep [Provider Group] (Call to establish and follow up with a neurologist. Llame para establecer y giovany seguimiento con un neur?logo.) Samina Osullivan MD [Primary Care Provider] - Stand Alone Forms: Work/School Release Interventions: ED Discharge Assessment Last Done: 08/06/22 12:47 Discharge Date/Time: 08/06/22 12:47 Print Language: Gibraltarian
--- NOTE | 2022-08-06 10:19 | PC.NURSE ---
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 Staes 10
--- NOTE | 2022-08-06 10:20 | PC.NURSE ---
Alert and oriented, mostly eritrean speaking, wood planer used. has had a migrane for 2 days but this morning it got worse after droping her kids off at school . States vomited x1 and face started to tingle and hands were numb. States hx of migranes but never this bad. Denies sob or chest pain.
[2022-08-06 10:24] VITALS: BP 117/79; PULSE 87; RESP 18; TEMP 37; O2SAT 100
[2022-08-06 10:33] LABS: MANUAL DIFF FLAG NO
[2022-08-06 10:35] LABS: Basophils Percent Auto 0.7 % (0-2); Eosinophils Absolute Auto 0.1 X10*3/uL (0.0-0.4); Eosinophils Percent Auto 1.2 % (0-4); Hematocrit 37.7 % (37.0-47.0); Hemoglobin 12.2 g/dl (12.0-16.0); Imm Gran Abs Auto 0.02 X10*3/uL (0.00-0.03); Imm Gran Pct Auto 0.3 % (0.0-0.4); Lymphocytes Absolute Auto 1.5 X10*3/uL (1.2-4.9); Lymphocytes Percent Auto 25.4 % (20-40); Mean Corpuscular HGB Conc 32.4 g/dl (31.0-35.0); Mean Corpuscular Volume 86.5 fL (80.0-98.0); Mean Platelet Volume 10.4 fL (9.4-12.3); Monocytes Absolute Auto 0.5 X10*3/uL (0.1-1.2); Neutrophils Absolute Auto 3.8 x10*3/uL (2.0-8.3); Neutrophils Percent Auto 64.4 % (45-73); Platelet Count 191 X10*3/uL (160-400); Red Blood Count 4.36 X10*6/uL (4.20-5.50); Red Cell Distribution Width 13.1 % (11.0-16.0); White Blood Count 5.9 X10*3/uL (4.8-10.8)
[2022-08-06 10:51] LABS: Appearance Urine Clear; Color Urine Yellow; Glucose Urine UA Negative (Negative); Leukocyte Esterase Urine Negative (Negative); Nitrite Urine Negative (Negative); PH 8.5 (5.0-9.0); Specific Gravity - Urine <= 1.005 (1.005-1.025); Urine Blood Negative (Negative); Urine Ketones Negative (Negative); Urine Protein Negative (Neg-Trace)
[2022-08-06 11:06] LABS: Alanine Aminotransferase 5 U/L (0-31); Albumin Level 4.2 g/dL (3.5-5.0); Alkaline Phosphatase 42 U/L (39-117); Anion Gap 13 (12-20); Aspartate Amino Transferase 12 U/L (5-31); Bilirubin Total 0.5 mg/dL (0.0-1.0); Blood Urea Nitrogen 7 mg/dL (9-16); Calcium 9.1 mg/dL (8.4-10.2); Carbon Dioxide 28 mmol/L (22-29); Chloride 106 mmol/L (96-108); Creatinine Clr Calc Pharmacy 91.5; Estimated Glomerular Filt Rate > 60; Glucose Random 98 mg/dL (60-115); Magnesium 2.1 mg/dL (1.6-2.6); Potassium 3.9 mmol/L (3.3-5.1); Sodium 143 mmol/L (135-145)
[2022-08-06 11:10] LABS: HCG Quantitative < 2 mIU/mL
[2022-08-06] MEDS: 0.9 % Sodium Chloride 1,000 ML 999 ML IV (11:35)
[2022-08-06] MEDS: Metoclopramide HCl 10 MG/2 ML VIAL IVPUSH (11:35)
[2022-08-06] MEDS: Ketorolac Tromethamine 15 MG/ML VIAL IVPUSH (11:35)
--- NOTE | 2022-08-06 12:47 | PC.NURSE ---
Using car shunter discharge plan reviewed with patient who verbalized understanding
== END 2022-08-06 12:47 | disposition home or self-care (01) ==
PROVIDERS: Physician Assistant Medical; Emergency Provider Emergency Medicine; PCP Internal Medicine
DX: G43.909 Migraine, unspecified, not intractable, without status migrainosus (principal); R11.2 Nausea with vomiting, unspecified
CPT/HCPCS: 36415; 80053; 81003; 83735; 84702; 85025; 96361; 96374; 96375; 99284; J1885; J2765

== ENCOUNTER → 2022-08-13 12:29 | Outpatient (BNVA) | payer OTHER, SELFPAY | PROVIDERS: PCP Internal Medicine; Visit Provider Nurse Practitioner Family | DX: K21.9 Gastro-esophageal reflux disease without esophagitis (principal); K58.1 Irritable bowel syndrome with constipation; K59.04 Chronic idiopathic constipation; R14.0 Abdominal distension (gaseous); R13.14 Dysphagia, pharyngoesophageal phase; Z80.0 Family history of malignant neoplasm of digestive organs | CPT/HCPCS: 99212 ==

== ENCOUNTER 2022-09-20 10:35 | Outpatient (AMB) | payer OTHER, SELFPAY ==
--- NOTE | 2022-09-20 10:51 | MHC.OFFVIS ---
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 Intake Note: Having vaginal itch and having white discharge and pain with intercourse and abdominal pain Network Control Operator Required: Yes Network Control Operator Language: Turkmen Allergies No Known Allergies [No Known Allergies*] Allergy (Verified 09/20/22 11:02) Medication List - Last Reconciled 09/20/22 by Ciarra Anguiano CNM famotidine (Pepcid) 20 mg PO BEDTIME hydroxyzine pamoate 50 mg PO BID PRN linaclotide (Linzess) 145 mcg PO DAILY ondansetron 4 mg PO Q6H PRN ondansetron 4 mg PO Q8H 3 days pantoprazole 40 mg PO DAILY polyethylene glycol 3350 (Miralax) 17 grams PO DAILY sennosides (Natural Senna Laxative) 17.2 mg (2 x 8.6 mg) PO BEDTIME sertraline 25 mg PO DAILY sumatriptan succinate 25 mg PO Q2-4H PRN 30 days trazodone 50 mg PO BEDTIME PRN 90 days Is last menstrual period known: Yes Last menstrual period: 09/03/22 Post menopausal: No Patient : No HPI EPIDEMIOLOGY INTERNSHIP annual exam HPI Details 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 But there all the time. She also has some vaginal itching she says she does not use panty liners she said she had her period at the beginning of August but sometimes it is a little bit late. On questioning she did have a little bit more pelvic pain last week or in recent days. She also finds a breasts little bit tender right now. She is scheduled for a colonoscopy or some other workup to see if she has Crohn's disease in September coming up she has an extensive history of gastro intestinal challenges and is on various medications and has been following with GI. A pelvic ultrasound done last year to rule out fibroids or ovarian cyst ruled those factors out at that time and her concerns are the same this year. She had a tubal ligation after her children so she is not worried about and she also has no real concerns about STIs. Last Pap smear was negative and normal last year and she has no history of abnormal. She has 3 children and she works as a [employer] Medical History (Updated 09/20/22 @ 11:58 by Ciarra Anguiano CNM) Chest pain Chronic GERD Duodenitis SAMRA (generalized anxiety disorder) Hiatal hernia Left knee pain Migraines Mild recurrent major depression Right knee pain Surgical History (Updated 09/20/22 @ 11:04 by Steffi Cardoza CMA) History of esophagogastroduodenoscopy (EGD) Hx of appendectomy Hx of cholecystectomy Hx of tubal ligation Family History (Updated 09/20/22 @ 11:06 by Steffi Cardoza CMA) Mother Diabetes Arthritis Father Diabetes Arthritis Sister Cancer Colon cancer Paternal Uncle Cancer Social History Housing: House Alcohol intake: never Patient Tobacco Use Status: Never used Tobacco e-Cigarette/Vaping Use: Never Used Second Hand Smoke Exposure: No service: No Current occupational status: employed 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 Current occupational exposures/hazards: No Cognitive needs: No Hearing needs: No Vision needs: Yes Female Reproductive History Menstrual Age of Menarche: 12 Duration of menses: 6-7 days Date of last menstrual period: 09/03/22 control method: other (tubal ligation) Total pregnancies: 3 Full term: 3 Number of Living Children: 3 Date of last pap smear: 08/08/21 (wn) Physical Exam Vital Signs: Last Vital Signs BP 104/62 09/20/22 10:52 BMI result Body Mass Index 25.3 Const General: healthy appearing, comfortable, no acute distress, well developed and alert Nutritional Appearance: average body habitus Orientation/consciousness: patient oriented x3 Limitations: no limitations HEENT Head: Yes normocephalic Neck Neck: Yes normal visual inspection Chest Chest palpation & inspection: normal inspection of the chest Breast/axilla inspection: normal inspection of the breasts and normal inspection of the axillae Breast/axilla palpation: normal palpation of the breasts and normal palpation of the axillae Resp Effort & Inspection: normal respiratory effort GI Inspection: Yes normal to inspection, No Abdominal wall edema and No distended Palpation (GI): Soft to palpation and nontender Other: External exam is completely within normal limits with no redness irritation or lesions. Vagina pink moist no redness no abnormal discharge. Cervix multiparous with clear mucus indicative of recent ovulation changing to white luteal phase. Cervix is long close thick mobile midposition nontender. Uterus is small firm anteverted mobile nontender patient able to feel as well during the exam. Has abdominal scar tissue -noted. Adnexa mobile nontender not enlarged Fairly good tone with Kegel instructed to work on sustained Kegel's General: Yes bladder normal to palpation External Female Exam: normal external appearance and normal appearance of the urethra Speculum Exam - Vagina: normal appearance of the vagina, normal palpation and normal vaginal discharge Speculum Exam - Cervix: normal appearance of the cervix, normal palpation and nontender Bimanual exam- vagina & uterus: normal bimanual exam, normal palpation, uterine size normal, bladder normal to palpation, consistency normal, normal palpation, uterine mobility normal, uterine shape normal, No Cervical tenderness present, non-tender and no cervical motion tenderness Bimanual Exam- Adnexa, other: normal adnexae, no masses, normal and No adnexal tenderness Neuro General: patient oriented x3 Assessment & Plan Assessment & Plan (1) Cervical cancer screening: Comment: 08/08/2021 Pap is negative with negative HPV. Code(s): Z12.4 - Encounter for screening for malignant neoplasm of cervix (2) Screen for sexually transmitted diseases: Code(s): Z11.3 - Encounter for screening for infections with a predominantly sexual mode of transmission (3) Well woman exam with routine gynecological exam: Code(s): Z01.419 - Encounter for gynecological examination (general) (routine) without abnormal findings (4) Pelvic pain: Code(s): R10.2 - Pelvic and perineal pain (5) Dysmenorrhea, unspecified: Code(s): N94.6 - Dysmenorrhea, unspecified Plan -----Discussed in this visit the following: healthy balanced diet, regular and consistent exercise, getting recommended health screens, doing the best she can for her particular health concerns, kegel exercises, pap smear screening and followup recommendations, mammography screening and SBE, normal changes in cycles in her life stage--- . 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 Patient is completely nontender again this year on exam and there is nothing suspicious in her exam to point to any pathology gynecologicly. Ultrasound done last year for the exact same reason showed no pathology either with no fibroids no ovarian cysts. A additionally even though she has got vaginal and itching there is no redness there is no abnormal discharge whatsoever her discharge is consistent with recent ovulation and she does tell me that sometimes her menses can be a little bit late she also tells me that her breasts are sometimes painful but that lines up with when she is premenstrual. I see no evidence of pathology at this point and explained normal cyclic changes that do occur her. I recommend she continue with her gastrointestinal workup and that if she does have Crohn's or anything else diagnosed there may be dietary changes that might aid in her relief as well. Testing was done for GC chlamydia trich Gardnerella and yeast and if anything does show up we will treated accordingly or nor for treatment but I do not see anything to treat today and I informed her this. Orders: Orders Bacterial Vaginosis Panel Today Z01.419 - Encounter for gynecological examination (general) (routine) without abnormal findings CT NG by PCR Today Z01.419 - Encounter for gynecological examination (general) (routine) without abnormal findings Coding Level of Care Code Est Pt Prev Care [id number]) Diagnoses Cervical cancer screening Z12.4 Screen for sexually transmitted diseases Z11.3 Well woman exam with routine gynecological exam Z01.419 Pelvic pain R10.2 Dysmenorrhea, unspecified N94.6
[2022-09-20 10:52] VITALS: BP 104/62; BMI 25.3
== END 2022-09-20 11:56 | disposition home or self-care (01) ==
LOC: HO.HWS 10:35
PROVIDERS: PCP Internal Medicine; Visit Provider Advanced Practice Midwife
DX: Z01.419 Encounter for gynecological examination (general) (routine) without abnormal findings (principal); Z11.3 Encounter for screening for infections with a predominantly sexual mode of transmission; R10.2 Pelvic and perineal pain; N94.6 Dysmenorrhea, unspecified
CPT/HCPCS: 99395

== ENCOUNTER 2022-09-20 10:35 | Outpatient (REF) | payer OTHER, SELFPAY ==
[2022-09-20 18:55] LABS: CT PCR NOT DETECTED (Not Detect.); NG PCR NOT DETECTED (Not Detect.)
[2022-09-21 13:20] LABS: BV Int Neg Control Negative (Negative); BV Int Pos Control Positive (Positive)
== END 2022-09-20 10:36 | disposition home or self-care (01) ==
LOC: HO.LNP 10:35
PROVIDERS: PCP Internal Medicine; Visit Provider Advanced Practice Midwife
DX: Z11.3 Encounter for screening for infections with a predominantly sexual mode of transmission (principal); R10.2 Pelvic and perineal pain; N94.6 Dysmenorrhea, unspecified
CPT/HCPCS: 0353U; 87480; 87510; 87660

== ENCOUNTER 2022-09-21 10:22 | Emergency (ER) | payer OTHER, SELFPAY ==
--- NOTE | ~2022-09-21 | XR_ITS ---
EXAMINATION: XR CHEST CLINICAL INFORMATION: Chest pain. COMPARISON: None available. TECHNIQUE: Frontal view of the chest was obtained. FINDINGS: No significant abnormality is noted involving the heart, lungs, mediastinum, bony thorax or soft tissues. XR/XR chest 1V IMPRESSION: No acute cardiopulmonary process.
[2022-09-21 10:27] VITALS: BP 153/86; PULSE 87; RESP 18; TEMP 36.7; O2SAT 100; BMI 25.9
--- NOTE | 2022-09-21 10:29 | ECG_ITS ---
Test Reason : cp Blood Pressure : / mmHG Vent. Rate : 079 BPM Atrial Rate : 079 BPM P-R Int : 122 ms QRS Dur : 082 ms QT Int : 344 ms P-R-T Axes : 031 052 008 degrees QTc Int : 394 ms Normal sinus rhythm Normal ECG When compared with ECG of 07-JUL-2021 09:48, No significant change was found Referred By: Generic ED Physician Electronically Signed By:JESSE VAIL MD
[2022-09-21 10:46] LABS: Hematocrit 37.7 % (37.0-47.0); Hemoglobin 12.3 g/dl (12.0-16.0); Mean Corpuscular HGB Conc 32.6 g/dl (31.0-35.0); Mean Corpuscular Volume 85.9 fL (80.0-98.0); Mean Platelet Volume 10.5 fL (9.4-12.3); Platelet Count 218 X10*3/uL (160-400); Red Blood Count 4.39 X10*6/uL (4.20-5.50); Red Cell Distribution Width 13.1 % (11.0-16.0); White Blood Count 7.9 X10*3/uL (4.8-10.8)
[2022-09-21 11:03] LABS: Anion Gap 12 (12-20); Blood Urea Nitrogen 9 mg/dL (9-16); Calcium 8.8 mg/dL (8.4-10.2); Carbon Dioxide 22 mmol/L (22-29); Chloride 108 mmol/L (96-108); Creatinine Clr Calc Pharmacy 97.2; Estimated Glomerular Filt Rate > 60; Glucose Random 106 mg/dL (60-115); Potassium 4.2 mmol/L (3.3-5.1); Sodium 138 mmol/L (135-145)
[2022-09-21 11:12] LABS: Troponin-I High Sensitivity < 2.7 ng/L (<3.5-17.0)
[2022-09-21 12:00] VITALS: BP 107/69; PULSE 75; RESP 12; TEMP 37.1; O2SAT 100
--- NOTE | 2022-09-21 12:53 | ED.CHESTPAIN ---
HPI - Chest Pain General Chief Complaint: Chest Pain Stated Complaint: Chest Pain Radiating to Back Time Seen by Provider: 09/21/22 12:53 Source: patient Mode of arrival: ambulatory Limitations: language barrier (Patient speaks Khmer only, associate creative director used) History of Present Illness HPI narrative: 32-year-old female who presents emergency department for evaluation of chest pain. Patient states that last night at around 22:00 she developed pain in her left anterior chest. The pain was a stabbing pain which is been constant since onset. The pain is worse with movement and worse with breathing. The pain is 10/10. She did not take any medications for the pain. She states she also developed a migraine headache. She denied fever, chills, rhinorrhea or sore throat. She states she has developed a slight cough this morning which is nonproductive. She does complain of shortness of breath and dyspnea on exertion. She has had nausea with no vomiting or diarrhea. Related Data Home Medications Medication Instructions Recorded Confirmed hydroxyzine pamoate 50 mg capsule 50 mg PO BID PRN allergies 12/08/21 09/20/22 sertraline 25 mg tablet 25 mg PO DAILY 12/08/21 09/20/22 Previous Rx's Medication Instructions Recorded ondansetron 4 mg disintegrating 4 mg PO Q6H PRN nausea and 02/11/22 tablet vomiting #14 tabs polyethylene glycol 3350 17 17 g PO DAILY #510 grams 03/09/22 gram/dose oral powder (Miralax) sennosides 8.6 mg tablet (Natural 17.2 mg PO BEDTIME constipation 07/06/22 Senna Laxative) #180 tabs ondansetron 4 mg disintegrating 4 mg PO Q8H 3 days #9 tabs 08/06/22 tablet famotidine 20 mg tablet (Pepcid) 20 mg PO BEDTIME #30 tabs 08/13/22 linaclotide 145 mcg capsule 145 mcg PO DAILY #90 caps 08/13/22 (Linzess) pantoprazole 40 mg tablet,delayed 40 mg PO DAILY #90 tabs 08/13/22 release trazodone 50 mg tablet 50 mg PO BEDTIME PRN sleep 90 days 08/28/22 #90 tabs sumatriptan succinate 25 mg tablet 25 mg PO Q2-4H PRN migraine 09/05/22 headache 30 days #9 tabs Allergies Allergy/AdvReac Type Severity Reaction Status Date / Time No Known Allergies Allergy Verified 09/20/22 11:02 [No Known Allergies*] Review of Systems Review of Systems: Yes all other systems are reviewed and are negative [facility] Past Medical History [facility] Narrative: Past medical history: Reviewed below, she states she is currently being worked up for Crohn's disease. Social history: She denies tobacco, alcohol and drug use. Medical History Chest pain Chronic GERD Duodenitis SAMRA (generalized anxiety disorder) Hiatal hernia Left knee pain Migraines Mild recurrent major depression Right knee pain Surgical History History of esophagogastroduodenoscopy (EGD) Hx of appendectomy Hx of cholecystectomy Hx of tubal ligation Family History Family History Mother Diabetes Arthritis Father Diabetes Arthritis Sister Cancer Colon cancer Paternal Uncle Cancer Social History Social History Housing: House Alcohol intake: never Patient Tobacco Use Status: Never used Tobacco Smoked in Last 30 Days: No e-Cigarette/Vaping Use: Never Used Second Hand Smoke Exposure: No Use of substances other than those prescribed or required for medical reasons: No Advance Directives: No Advance Directives Information Provided: No Patient : No service: No Current occupational status: employed 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 Current occupational exposures/hazards: No Cognitive needs: No Hearing needs: No Vision needs: Yes Physical Exam Vital Signs: Vital Signs: Last Vital Signs Temp 98.8 F 09/21/22 12:00 Pulse 68 09/21/22 13:28 Resp 16 09/21/22 13:28 BP 117/87 09/21/22 13:28 Pulse Ox 100 09/21/22 13:28 O2 Del Method Room Air 09/21/22 13:28 BMI result Body Mass Index 25.9 Const: General: cooperative and no acute distress Orientation/consciousness: oriented to person and oriented to place Limitations: no limitations HEENT: Head: Yes normal to inspection, Yes normocephalic and Yes atraumatic Ears: external ears normal General nose exam: Normal external nose present Face and sinus: Yes normal facial exam Mouth: Normal oral and palatal mucosa present Throat: Yes posterior oropharynx normal Eyes: General: appearance normal, both eyes and all related structures Pupils: Equal, round and reactive pupils present Neck: Neck: Yes normal visual inspection, Yes no lymphadenopathy, Yes trachea midline and Yes supple Chest: Other: Patient has tenderness palpation of her costochondral joints bilaterally, palpation of these joints caused her severe pain and causes her to cry. Resp: Effort & Inspection: normal respiratory effort and able to speak in complete sentences Auscultation: clear to auscultation bilaterally Cardio: Rate: regular rate Rhythm: regular rhythm Heart sounds: S1 normal heart sound present, S2 normal heart sound present and no murmurs GI: Inspection: Yes normal to inspection Palpation (GI): Soft to palpation, nontender and no guarding Auscultation: normal bowel sounds : General: Yes no CVA tenderness Back/Spine/Pelvis: Back: no CVA tenderness Skin: General skin exam: no rashes or lesions noted Neuro: General: oriented to person and oriented to place Cranial nerves: Yes CN's II-XII intact bilaterally and Yes Equal, round and reactive pupils present Cognition (Neuro): normal cognition Motor exam (neuro): 5/5 motor strength present throughout Extrem: General: Yes normal to inspection Psych: Appearance: grossly normal Speech and movement: Normal speech and movement present Affect: normal affect Attitude: cooperative Medications Administered Discontinued Medications Generic Name Dose Route Start Last Admin Trade Name Freq PRN Reason Stop Dose Admin Ketorolac Tromethamine 30 mg 09/21/22 14:20 09/21/22 14:45 Ketorolac Tromethamine 30 Mg/Ml Vial IVPUSH 09/21/22 14:21 30 mg ONCE ONE Administration Medical Decision Making Medical Decision Making [facility] Narrative: 32-year-old female who presents emergency department for evaluation of chest pain that came on last night at 22:00 hours and has been constant since onset, the pain is located in her left anterior chest, the pain is a stabbing pain which is worse with movement and with breathing, the pain is 10/10 at its worse and she feels short of breath and has dyspnea on exertion. The patient was PERC negative. I ordered laboratory evaluation chest x-ray and an EKG. Patient was ordered to get Toradol 30 mg IV for pain. 1425: My interpretation patient's laboratory evaluation as follows: CBC, BMP were normal. High sensitive troponin I was below detectable limits. Patient's 12 EKG was unremarkable. 1531: The patient got some relief after the above treatment, she was given another dose of Toradol 15 mg IV. Patient was discharged home and advised to take Tylenol and ibuprofen for pain. She was given printed and verbal instructions prior to discharge. Differential Diagnosis Differential Diagnoses: The differential diagnosis associated with the presentation includes Admission/Observation Consideration of admission/observation: Escalation of care including admission/observation considered Lab Data [facility] Lab Attestation statement: I reviewed the patient's lab results. See [facility] 09/21/22 10:36 09/21/22 10:36 Labs: Lab Results 09/21/22 09/21/22 09/21/22 Range/Units 10:36 10:36 10:36 WBC 7.9 (4.8-10.8) X10*3/uL RBC 4.39 (4.20-5.50) X10*6/uL Hgb 12.3 (12.0-16.0) g/dl Hct 37.7 (37.0-47.0) % MCV 85.9 (80.0-98.0) fL MCH 28.0 (27.0-33.0) pg MCHC 32.6 (31.0-35.0) g/dl RDW 13.1 (11.0-16.0) % Plt Count 218 (160-400) X10*3/uL MPV 10.5 (9.4-12.3) fL Absolute Nucleated RBC 0.000 (0.0-0.012) X10*3/uL Nucleated RBC % (auto) 0.0 (0.0-0.2) /100WBC Sodium 138 (135-145) mmol/L Potassium 4.2 (3.3-5.1) mmol/L Chloride 108 (96-108) mmol/L Carbon Dioxide 22 (22-29) mmol/L Anion Gap 12 (12-20) BUN 9 (9-16) mg/dL Creatinine 0.76 (0.5-1.4) mg/dL Estim Creat Clear Calc 97.2 Estimated GFR > 60 Random Glucose 106 (60-115) mg/dL Calcium 8.8 (8.4-10.2) mg/dL Troponin I High Sens < 2.7 (<3.5-17.0) ng/L Independent Interpretation I performed an independent interpretation of an: EKG Interpretation: My independent of the patient's 12 EKG done at 1031 hours is as follows: Normal sinus rhythm rate of 79, normal NJ interval, QRS duration QTC interval, no ST segment elevation, no ST segment depression, inverted T-wave in lead 3 and V1, no PACs, no PVCs, when compared to EKG dated 07/07/2021 there is no significant change. My independent interpretation of the patient's one-view chest x-ray is as follows: No acute disease, no pneumothorax Radiology Impression Discussion of test interpretation with radiology: I have reviewed the radiologist's reading. Prescription Management I considered prescription management with: Pain Medication Discharge Plan Discharge Clinical Impression: Acute costochondritis Patient Disposition: Home, Self-Care Instructions: Costochondritis (ED) Additional Instructions: Your laboratory evaluation was normal. Your EKG was normal. Your chest x-ray was normal. Your exam revealed significant tenderness with pushing on the joints of your chest. This suggests that you have inflammation of the chest joints and this is called costochondritis. Take ibuprofen 200 mg pills, 2 pills every 6 hours for the next 4 days then as needed for pain or fever. Take Tylenol (acetaminophen) 500 mg pills, 2 pills every 6 hours as needed for pain or fever. Follow-up with your doctor in 2 days. Please return to the emergency department if your symptoms get worse or if you develop any symptoms that are concerning to you. Prescriptions: No Action trazodone 50 mg tablet 50 mg PO BEDTIME PRN (Reason: sleep) 90 Days Qty: 90 0RF sumatriptan succinate 25 mg tablet 25 mg PO Q2-4H PRN (Reason: migraine headache) 30 Days Qty: 9 3RF Rx Instructions: do not exceed 8 doses per 24 hrs ondansetron 4 mg tablet,disintegrating 4 mg PO Q6H PRN (Reason: nausea and vomiting) Qty: 14 0RF ondansetron 4 mg tablet,disintegrating 4 mg PO Q8H 3 Days Qty: 9 0RF sennosides [Natural Senna Laxative] 8.6 mg tablet 17.2 mg PO BEDTIME Qty: 180 3RF sertraline 25 mg tablet 25 mg PO DAILY hydroxyzine pamoate 50 mg capsule 50 mg PO BID PRN (Reason: allergies) polyethylene glycol 3350 [Miralax] 17 gram/dose powder 17 g PO DAILY Qty: 510 2RF pantoprazole 40 mg tablet,delayed release (DR/EC) 40 mg PO DAILY Qty: 90 2RF Rx Instructions: take one tablet half an hour before breakfast famotidine [Pepcid] 20 mg tablet 20 mg PO BEDTIME Qty: 30 3RF Linzess 145 mcg capsule 145 mcg PO DAILY Qty: 90 3RF
[2022-09-21 13:28] VITALS: BP 117/87; PULSE 68; RESP 16; O2SAT 100
[2022-09-21] MEDS: Ketorolac Tromethamine 30 MG/ML VIAL IVPUSH (14:45)
[2022-09-21] MEDS: Ketorolac Tromethamine 15 MG/ML VIAL IVPUSH (15:40)
== END 2022-09-21 15:58 | disposition home or self-care (01) ==
PROVIDERS: Emergency Provider Emergency Medicine Emergency Medical Services; PCP Internal Medicine
DX: R07.89 Other chest pain (principal); M54.50 Low back pain, unspecified; M94.0 Chondrocostal junction syndrome [Tietze]; Z79.899 Other long term (current) drug therapy
CPT/HCPCS: 36415; 71045; 80048; 84484; 85027; 93005; 96374; 96376; 99284; 99285; J1885

== ENCOUNTER → 2022-09-21 10:29 | Outpatient (BNV) | payer OTHER, SELFPAY | PROVIDERS: Emergency Provider Emergency Medicine Emergency Medical Services; PCP Internal Medicine; Visit Provider Internal Medicine Cardiovascular Disease | DX: R07.9 Chest pain, unspecified (principal) | CPT/HCPCS: 93010 ==

== ENCOUNTER 2022-10-08 08:00 | Outpatient (AMB) | payer OTHER, SELFPAY ==
--- NOTE | 2022-10-22 14:57 | A.OFFVIS_ITS ---
Intake Intake Visit Reasons: CAPSULE ENDOSCOPY Allergies No Known Allergies [No Known Allergies*] Allergy (Verified 09/20/22 11:02) PFSH Medical History Chest pain Chronic GERD Duodenitis SAMRA (generalized anxiety disorder) Hiatal hernia Left knee pain Migraines Mild recurrent major depression Right knee pain Surgical History (Updated 10/08/22 @ 13:25 by CLINTON Sierra) History of esophagogastroduodenoscopy (EGD) Hx of appendectomy Hx of cholecystectomy Hx of colonoscopy Hx of tubal ligation Family History Mother Diabetes Arthritis Father Diabetes Arthritis Sister Cancer Colon cancer Paternal Uncle Cancer Social History Housing: House Alcohol intake: never Patient Tobacco Use Status: Never used Tobacco e-Cigarette/Vaping Use: Never Used Second Hand Smoke Exposure: No service: No Current occupational status: employed 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 Mild bulbar duodenitis was noted. One small erosion noted in TI otherwise small bowel was normal Conclusion: bulbar duodenitis erosion in TI consider checking h pylori, NSAID hx and celiac panel if ongoing sx. Can also consider a CTe if concern for crohns Capsule Endoscopy CPT Code: 98235 - Capsule Endoscopy Assessment & Plan Assessment & Plan (1) Duodenitis: Code(s): K29.80 - Duodenitis without bleeding Coding Level of Care Code Procedure Only Diagnoses Duodenitis K29.80 CPT Codes AMB Capsule Endoscopy - Capsule Endoscopy CPT Code: 34182 - Capsule Endoscopy ([id number])
== END 2022-10-08 08:27 | disposition home or self-care (01) ==
PROVIDERS: PCP Internal Medicine; Visit Provider Internal Medicine Gastroenterology
DX: K21.9 Gastro-esophageal reflux disease without esophagitis (principal)
CPT/HCPCS: 91110

== ENCOUNTER → 2022-10-08 08:00 | Outpatient (BNVA) | payer OTHER, SELFPAY | PROVIDERS: PCP Internal Medicine; Visit Provider Internal Medicine Gastroenterology | DX: K29.80 Duodenitis without bleeding (principal); K21.9 Gastro-esophageal reflux disease without esophagitis; Z90.49 Acquired absence of other specified parts of digestive tract | CPT/HCPCS: 91110; 99212 ==

== ENCOUNTER 2022-10-08 12:49 | Outpatient (AMB) | payer OTHER, SELFPAY ==
--- NOTE | 2022-10-08 13:20 | MHC.OFFVIS ---
Intake Vital Signs 10/08/22 13:22 Height 5 ft 3 in Weight 141 lb 1.533 oz BMI 25.0 BP 114/70 Blood Pressure Location Lt brachial Position Sitting Pulse 69 Intake Visit Reasons: GERD DYSPHAGIA AND CIC Intake Note: Sandra presents in the office as a follow up for GERD, CIC, and DYSPHAGIA. CC: She states that she is not having any concerns today. Trailer Technician Required: Yes Trailer Technician Name: [id number] Allergies No Known Allergies [No Known Allergies*] Allergy (Verified 09/20/22 11:02) HPI GERD DYSPHAGIA AND CIC HPI Details LAST VISIT Chronic GERD Continue pantoprazole and famotidine. Discussed with patient avoiding dietary triggers and late night snacking. Staying upright for minimum 3 hours after meals discussed with her. IBS (irritable bowel syndrome) Occasional abdominal cramping when unable to move her bowels for more than 2 days. Will start patient on Linzess. Discussed with patient low FODMAP diet Abdominal bloating Patient reports occasional abdominal bloating specially when a bowel movement in couple days. Low FODMAP diet discussed with her. Constipation Patient continues to be constipated. Feels like Senokot helped but not much. Will start her on Linzess. Dysphagia Patient reports trouble swallowing meat. Will send patient for barium swallow. Family history of colorectal cancer No polyps found. Patient does have a family history of colorectal cancer so she will need to repeat colonoscopy in 5 years. I will see patient in 2 months, sooner on as needed basis. Patient is agreeable to this plan and verbalizes understanding of instructions. He was given the opportunity to ask questions and all questions answered. ? Thank you for allowing me to participate in her care is Plan Orders Orders FL barium swallow Today R13.10 Medications New linaclotide (Linzess) 145 mcg PO DAILY 90 caps 3RF K59.04 Refilled pantoprazole take one tablet half an hour before breakfast 40 mg PO DAILY 90 tabs 2RF K21.9 famotidine (Pepcid) 20 mg PO BEDTIME 30 tabs 3RF K21.9 TODAY'S VISIT: Patient is here today for follow-up. Patient has not gone for barium swallow yet. Will help her schedule 1 today patient reports that she is taking pantoprazole in the morning and states that she continues occasionally have acid reflux and occasional dysphagia. Patient denies any nausea or vomiting. Patient reports that she is not moving her bowels completely. Sometimes no bowel movement for 1-2 days. Patient denies melena, hematochezia, unintentional weight loss or ribbon like stools. Patient reports occasional postprandial abdominal bloating. Tried changing her diet. No longer eating food that is spicy, greasy or fried. [facility] Medical History Chest pain Chronic GERD Duodenitis SAMRA (generalized anxiety disorder) Hiatal hernia Left knee pain Migraines Mild recurrent major depression Right knee pain Surgical History (Updated 10/08/22 @ 13:25 by CLINTON Sierra) History of esophagogastroduodenoscopy (EGD) Hx of appendectomy Hx of cholecystectomy Hx of colonoscopy Hx of tubal ligation Family History Mother Diabetes Arthritis Father Diabetes Arthritis Sister Cancer Colon cancer Paternal Uncle Cancer Social History Housing: House Alcohol intake: never Patient Tobacco Use Status: Never used Tobacco e-Cigarette/Vaping Use: Never Used Second Hand Smoke Exposure: No service: No Current occupational status: employed 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 Current occupational exposures/hazards: No Cognitive needs: No Hearing needs: No Vision needs: Yes Female Reproductive History Menstrual Age of Menarche: 12 Review of Systems Const Denies weight gain and Denies weight loss ENT Reports no additional complaints, Reports dysphagia (Occasional) and Denies odynophagia Card Reports no additional complaints Resp Reports no additional complaints GI Denies abdominal pain, Denies belching, Denies melena, Denies bloating, Reports constipation, Reports dysphagia (Occasional), Denies excessive flatus, Denies dyspepsia, Denies heartburn, Denies diarrhea, Denies loose stools, Denies nausea, Denies odynophagia and Denies vomiting Reports no additional complaints Musc Reports no additional complaints Neuro Reports no additional complaints Psych Reports no additional complaints Endo Reports no additional complaints Physical Exam Vital Signs: Last Vital Signs Pulse 69 10/08/22 13:22 BP 114/70 10/08/22 13:22 BMI result Body Mass Index 25.0 Const General: healthy appearing, no acute distress and well developed Nutritional Appearance: well nourished Orientation/consciousness: patient oriented x3 HEENT Head: Yes normal to inspection, Yes normocephalic and Yes atraumatic Face and sinus: Yes normal facial exam Mouth: Normal oral and palatal mucosa present Throat: Yes posterior oropharynx normal, Yes tonsils normal and Yes uvula midline Eyes General: appearance normal, both eyes and all related structures Neck Neck: Yes normal visual inspection, Yes full ROM and Yes trachea midline Thyroid: Thyroid normal Resp Effort & Inspection: normal respiratory effort, able to speak in complete sentences, no tracheal deviation and symmetric chest movement Auscultation: clear to auscultation bilaterally Cardio Rate: regular rate Heart sounds: S1 normal heart sound present and S2 normal heart sound present GI Inspection: Yes normal to inspection and No distended Palpation (GI): Soft to palpation, not firm, nontender and No hepatosplenomegaly present Auscultation: normal bowel sounds General: Yes no CVA tenderness Back/Spine/Pelvis Back: no CVA tenderness Skin General skin exam: elasticity normal, turgor normal and dry skin Neuro General: patient oriented x3 Psych Appearance: grossly normal Mental Status: mental status grossly normal Speech and movement: Normal speech and movement present Assessment & Plan Assessment & Plan (1) Chronic GERD: Code(s): K21.9 - Gastro-esophageal reflux disease without esophagitis Plan: Stop pantoprazole and start taking lansoprazole. Discussed with patient avoiding dietary triggers and late night snacking.. Staying upright from minimum 3 hours after meals discussed with patient. (2) IBS (irritable bowel syndrome): Code(s): K58.9 - Irritable bowel syndrome without diarrhea Qualifiers: Irritable bowel syndrome type: with constipation Qualified Code(s): K58.1 - Irritable bowel syndrome with constipation Plan: Continue avoiding dietary triggers. Low FODMAP diet discussed with patient. Went over food recommended a food to avoid with patient. List of recommended food provided to patient. (3) Abdominal bloating: Code(s): R14.0 - Abdominal distension (gaseous) Plan: Postprandial abdominal bloating. Low FODMAP diet. Patient also is constipated most likely gas trapping due to constipation. Patient denies any abdominal pain (4) Constipation: Code(s): K59.00 - Constipation, unspecified Qualifiers: Constipation type: chronic idiopathic constipation Qualified Code(s): K59.04 - Chronic idiopathic constipation Plan: Patient can start Dulcolax at bedtime. Patient was encouraged to increase fluid intake and activity to promote better bowel motility. (5) Dysphagia: Code(s): R13.10 - Dysphagia, unspecified Qualifiers: Dysphagia type: pharyngoesophageal phase Qualified Code(s): R13.14 - Dysphagia, pharyngoesophageal phase Plan: Patient was encouraged to eat small bites. Occasional dysphagia, however patient was encouraged to keep her appointment for barium swallow. I will see her in 5 weeks, sooner on as needed basis. Patient is agreeable to this plan and verbalizes understanding of instructions. She was given the opportunity to ask questions and all questions answered. Thank you for allowing me to participate in her care Medications: New bisacodyl (Dulcolax (bisacodyl)) 10 mg (2 x 5 mg) PO BEDTIME 30 tabs 4RF lansoprazole 30 mg PO DAILY 30 caps 3RF K21.9 - Gastro-esophageal reflux disease without esophagitis Discontinued sennosides Discontinued Reason: Doctor's Order 17.2 mg (2 x 8.6 mg) PO BEDTIME 180 tabs 3RF constipation K59.00 - Constipation, unspecified pantoprazole take one tablet half an hour before breakfast Discontinued Reason: Doctor's Order 40 mg PO DAILY 90 tabs 2RF K21.9 - Gastro-esophageal reflux disease without esophagitis Coding Level of Care Code Est Pt Level 4 (03737) Diagnoses Chronic GERD K21.9 IBS (irritable bowel syndrome) K58.1 Irritable bowel syndrome type: with constipation Abdominal bloating R14.0 Constipation K59.04 Constipation type: chronic idiopathic constipation Dysphagia R13.14 Dysphagia type: pharyngoesophageal phase Time Spent (min) 35 Comment 25 minutes spent with patient and additional 10 minutes spent reviewing her records
[2022-10-08 13:22] VITALS: BP 114/70; PULSE 69; BMI 25.0
== END 2022-10-08 14:00 | disposition home or self-care (01) ==
PROVIDERS: PCP Internal Medicine; Visit Provider Nurse Practitioner Family
DX: K21.9 Gastro-esophageal reflux disease without esophagitis (principal); K58.1 Irritable bowel syndrome with constipation; R14.0 Abdominal distension (gaseous); K59.04 Chronic idiopathic constipation; R13.14 Dysphagia, pharyngoesophageal phase
CPT/HCPCS: 99214

== ENCOUNTER 2022-11-21 07:59 | Outpatient (REF) | payer OTHER, SELFPAY ==
--- NOTE | ~2022-11-21 | FL_ITS ---
EXAMINATION: FL BARIUM SWALLOW CLINICAL INFORMATION: Dysphagia. COMPARISON: None available. TECHNIQUE: Barium swallow examination is performed using fluoroscopic evaluation in addition to multiple fluoroscopic spot views. The patient is imaged both upright and prone and using both thick and thin sulfate along with effervescent granules. Fluoroscopy time: 45 seconds DAP: 799.3 Gy-cm2 Images: 10 runs FINDINGS: Following oral administration of thick barium, barium-coated turkey and barium tablet in upright view, there is normal propagation of bolus from the oral cavity, through the pharynx and esophagus and into the stomach. Mild hypertrophic mucosal changes seen in the pharynx where patient complains of pain. No intrinsic lesion or extrinsic compression seen in the esophagus. No laryngeal penetration or aspiration. FL/FL barium swallow IMPRESSION: Nonspecific mild mucosal thickening in the pharynx. Otherwise unremarkable barium swallow exam.
== END 2022-11-21 08:00 | disposition home or self-care (01) ==
LOC: HO.XRAY 07:59
PROVIDERS: PCP Internal Medicine; Visit Provider Nurse Practitioner Family
DX: R13.10 Dysphagia, unspecified (principal)
CPT/HCPCS: 74220

== ENCOUNTER → 2022-11-21 08:01 | Outpatient (BNV) | payer OTHER, SELFPAY | PROVIDERS: PCP Internal Medicine; Visit Provider Radiology Diagnostic Radiology | DX: R13.10 Dysphagia, unspecified (principal) | CPT/HCPCS: 74221 ==

== ENCOUNTER 2022-12-10 08:48 | Outpatient (AMB) | payer OTHER, SELFPAY ==
[2022-12-10 08:54] VITALS: BP 102/80; PULSE 78; O2SAT 99; BMI 24.6
--- NOTE | 2022-12-10 08:54 | MHC.PC.OV ---
Vital Signs 12/10/22 08:54 Height 5 ft 3 in Weight 139 lb BMI 24.6 BP 102/80 Blood Pressure Location Lt brachial Position Sitting Pulse 78 Pulse Source Pulse Oximeter Pulse Oximetry (%) 99 Oxygen Delivery Method Room Air Intake Visit Reasons: physical exam Intake Note: Patient here for a physical exam Dentofacial Orthopedics Dentist Required: No Accompanied by: Self / Same As Patient Allergies No Known Allergies [No Known Allergies*] Allergy (Verified 12/10/22 09:15) Medication List - Last Reconciled 12/10/22 by Samina Bone MD bisacodyl (Dulcolax (bisacodyl)) 10 mg (2 x 5 mg) PO BEDTIME famotidine (Pepcid) 20 mg PO BEDTIME hydroxyzine pamoate 50 mg PO BID PRN lansoprazole 30 mg PO DAILY linaclotide (Linzess) 145 mcg PO DAILY polyethylene glycol 3350 (Miralax) 17 grams PO DAILY sertraline 25 mg PO DAILY sumatriptan succinate 25 mg PO Q2-4H PRN 30 days trazodone 50 mg PO BEDTIME PRN 90 days Tobacco use date assessed: 12/10/22 Dental Screening Dental Screen Date: 12/10/22 Did you have a dental visit in the last 12 months?: No Did you have a dental problem in the last 6 months where you did not have access to dental care?: No Was dental information given to patient?: Patient has dentist HPI HPI Comments History of Present Illness Details This is a 32-year-old female with mild recurrent major depression that comes for her physical exam. Depression stable with sertraline. Last Pap smear was 2021 and was normal with HPV negative. Last colonoscopy was June 2022 due to family history of colon cancer in 35-year-old sister. Has occasional chest pain associated with shortness of breath that happens mostly on exertion. Also complains of anal pain when wiping herself after bowel movement. [facility] Medical History Duodenitis Hiatal hernia Chronic GERD Right knee pain Left knee pain SAMRA (generalized anxiety disorder) Migraines Mild recurrent major depression Chest pain Surgical History Hx of colonoscopy Hx of appendectomy History of esophagogastroduodenoscopy (EGD) Hx of cholecystectomy Hx of tubal ligation Family History (Updated 12/10/22 @ 09:19 by Samina Bone MD) Mother Diabetes Arthritis Father Diabetes Arthritis Sister Cancer Colon cancer, Onset Age: 35 Paternal Uncle Cancer Social History Housing: House Alcohol intake: never Patient Tobacco Use Status: Never used Tobacco e-Cigarette/Vaping Use: Never Used Second Hand Smoke Exposure: No service: No Current occupational status: employed 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 1. Little interest or pleasure in doing things: several days 2. Feeling down, depressed, or hopeless: several days 3. Trouble falling or staying asleep, or sleeping too much: nearly every day 4. Feeling tired or having little energy: several days 5. Poor appetite or overeating: nearly every day 6. Feeling bad about yourself - or that you are a failure or have let yourself or your family down: not at all 7. Trouble concentrating on things, such as reading the newspaper or watching television: not at all 8. Moving or speaking so slowly that other people could have noticed. Or the opposite - being so fidgety or restless that you have been moving around a lot more than usual: not at all 9. Thoughts that you would be better off or of hurting yourself in some way: not at all Total score: 9 Depression Screening Interpretation: Positive Depression Screening Follow-up: Existing condition Depression Screening Done: Yes 09230 - PHQ-9 Billing: Yes Source: Developed by Drs. Cornelio Hale, Glory Cunningham, Humberto Young and colleagues, with an educational enma from [employer]. Thrive Questionnaire Date Thrive assessed: 12/10/22 I am a: Patient What is your living situation today?: I have a steady place to live Within the past 12 months, did the food you bought not last and you didn't have the money to get more?: Never true Within the past 12 months, did you worry whether your food would run out before you got money to buy more?: Never true Do you have trouble paying for medicines?: No Do you have trouble getting transportation to medical appointments?: No Do you have trouble paying your heating and electricity bill?: No Do you have trouble taking care of your child, family member or friend?: No Do you have trouble with day-to-day activities such as bathing, preparing meals, shopping, managing finances, etc.?: No Are you currently unemployed and looking for a job?: No Are you interested in more education?: No Please select the resources that you would like help with: None Currently or been in a relationship where the following occur: no concerns reported AUDIT C Alcohol Use Questionnaire (AUDIT-C) 1. How often do you have a drink containing alcohol?: Never Total Score: 0 SAMRA-7 AMB Questionnaire SAMRA-7 Date SAMRA - 7 assessed: 12/10/22 Feeling nervous, anxious, or on edge: 1 = Several days Not being able to stop or control worryin = Not at all Worrying too much about different things: 1 = Several days Trouble relaxin = Not at all Being so restless that it is hard to sit still: 0 = Not at all Becoming easily annoyed or irritable: 0 = Not at all Feeling afraid as if something awful might happen: 0 = Not at all Total SAMRA-7 score (0-4 normal; 5-9 mild; 10-14 moderate; 15-21 severe): 2 Source: Developed by Drs. Cornelio Hale, Glory Cunningham, Humberto Young and colleagues, with an educational enma from [employer]. SAMRA-7 Assessment Billing SAMRA-7 Assessment Tool: SAMRA-7 Assessment 06175 Review of Systems Const All systems reviewed & are unremarkable except as noted in HPI and below Eyes Reports no additional complaints, Denies change in vision and Denies other visual disturbances Card Denies chest pain at rest, Denies chest pain with activity, Denies edema, Denies irregular heart rhythm, Denies claudication, Denies dyspnea, Denies dyspnea on exertion, Denies orthopnea, Denies paroxysmal nocturnal dyspnea and Denies slow heart rate Resp Denies cough, Denies dyspnea and Denies dyspnea on exertion GI Denies abdominal pain, Denies change in bowel habits, Denies excessive flatus, Denies nausea and Denies vomiting Denies urinary incontinence, Denies urinary hesitancy and Denies urinary urgency Musc Denies abnormal gait, Denies atrophy, Denies deformity and Denies limited range of motion Skin/Breast Denies bleeding lesions, Denies changing lesions and Denies rash Neuro Denies abnormal gait and Denies lack of coordination Physical exam (Primary Care) Vital Signs: Last Vital Signs Pulse 78 12/10/22 08:54 BP 102/80 12/10/22 08:54 Pulse Ox 99 12/10/22 08:54 Oxygen Delivery Method Room Air 12/10/22 08:54 BMI result Body Mass Index 24.6 Tobacco/Smoking Status: Tobacco use Status Tobacco use date assessed 12/10/22 12/10/22 09:01 Patient Tobacco Use Status Never used Tobacco 12/10/22 08:59 e-Cigarette/Vaping Use Never Used 12/10/22 08:59 PHQ-9: PHQ-9 Score PHQ-9: Total score 9 12/10/22 09:27 Depression Screening Interpretation: Positive Depression Screening Follow-up: Existing condition Thrive Assessment: Date of Thrive Assessment Date Thrive assessed 12/10/22 12/10/22 08:59 Currently or been in a relationship where the following occur: no concerns reported Const Orientation/consciousness: patient oriented x3 [facility] Head: Yes normal to inspection, Yes normocephalic and Yes atraumatic Ears: external ears normal Eyes General: appearance normal, both eyes and all related structures Eyelids: Yes eyelids normal Conjunctivae: conjunctivae normal Neck Neck: Yes normal visual inspection and Yes supple Resp Effort & Inspection: normal respiratory effort Auscultation: clear to auscultation bilaterally Cardio Jugular venous distension: no JVD Rate: regular rate Rhythm: regular rhythm Heart sounds: S1 normal heart sound present and S2 normal heart sound present GI Inspection: Yes normal to inspection Palpation (GI): Soft to palpation and nontender Auscultation: normal bowel sounds Skin General skin exam: no rashes or lesions noted Neuro General: patient oriented x3 and no focal motor deficits Extrem General: Yes full ROM Psych Appearance: grossly normal Office Procedures Flu Questionnaire Does the patient have a severe egg allergy?: No Does the patient have severe life threatening allergies?: No Does the patient have a fever or illness today?: No Has the patient ever had Guillain-[place] Syndrome?: No Has the patient ever had any past reaction to a flu shot?: No Immunizations flu vacc [id number] 6mos up(PF) 60 mcg(15 mcgx4)/0.5 mL IM syringe Performing Provider: Samina Bone MD Performing Location: [facility] Administered by: CLINTON Priest on 12/10/22 09:27 Dose Route Admin Location Dispensed Lot Number Expiration Date NDC Criminal [employer]yer 0.5 mL IM Left Deltoid 0.5 mL [id number] 08/25/23 89105-033-32 [employer] VIS Given Date VIS Provided VIS Publication Date 12/10/22 Single Vaccine 20 Eligibility Eligibility Date Funding Source Not [facility] Eligible 12/10/22 Private Assessment and Plan Assessment & Plan (1) Physical exam: Code(s): Z00.00 - Encounter for general adult medical examination without abnormal findings Plan: Repeat in a year. (2) Mild recurrent major depression: Code(s): F33.0 - Major depressive disorder, recurrent, mild Plan: Continue sertraline. Orders: Orders Influenza [id number] Immunization Today Z23 - Encounter for immunization Lipid Panel Today Z00.00 - Encounter for general adult medical examination without abnormal findings Comprehensive [place]. Panel Fast Today Z00.00 - Encounter for general adult medical examination without abnormal findings ECG 12 lead EKG Today R07.9 - Chest pain, unspecified Complete Blood Count Auto Diff Today G43.909 - Migraine, unspecified, not intractable, without status migrainosus Referrals Neurology Referral G43.909 - Migraine, unspecified, not intractable, without status migrainosus Medications: New amitriptyline 10 mg PO BEDTIME 90 tabs 1RF 90 days G43.909 - Migraine, unspecified, not intractable, without status migrainosus Discontinued trazodone Discontinued Reason: Patient Completed Course 50 mg PO BEDTIME 90 days PRN 90 tabs 0RF sleep G47.00 - Insomnia, unspecified Coding Level of Care Code Est Pt Prev Care 18-39y(35189) Diagnoses Physical exam Z00.00 Mild recurrent major depression F33.0 Additional Codes SAMRA-7 Assessment Billing - SAMRA-7 Assessment Tool: SAMRA-7 Assessment 39169 ([id number]) Time Spent (min) 33
== END 2022-12-10 09:28 | disposition home or self-care (01) ==
PROVIDERS: Visit Provider Internal Medicine
DX: Z00.00 Encounter for general adult medical examination without abnormal findings (principal); F33.0 Major depressive disorder, recurrent, mild; Z23 Encounter for immunization
CPT/HCPCS: 90471; 90686; 96127; 99395

== ENCOUNTER 2022-12-11 12:57 | Outpatient (AMB) | payer OTHER, SELFPAY ==
--- NOTE | 2022-12-11 13:11 | A.OFFVIS_ITS ---
Intake Vital Signs 12/11/22 13:13 Height 5 ft 3 in Weight 138 lb 14.259 oz BMI 24.6 BP 125/81 Blood Pressure Location Lt brachial Position Sitting Pulse 78 Intake Visit Reasons: 1 month follow up Intake Note: Sandra presents in the office as a 1 month follow up. CC: She states that last week she got up to go to the bathroom - she goes a strong pain that went upwards. She could not sit down. This pain occurred when she was going to wipe. She does not know if something exploded inside but when she sits down she has to sit down slowly and soft. She states that she was having blood but not anymore. Welfare Director Required: Yes Welfare Director Name: Tanesha [id number] Allergies No Known Allergies [No Known Allergies*] Allergy (Verified 12/13/22 15:17) HPI 1 month follow up HPI Details LAST VISIT Chronic GERD Stop pantoprazole and start taking lansoprazole. Discussed with patient avoiding dietary triggers and late night snacking.. Staying upright from minimum 3 hours after meals discussed with patient. IBS (irritable bowel syndrome) Continue avoiding dietary triggers. Low FODMAP diet discussed with patient. Went over food recommended a food to avoid with patient. List of recommended food provided to patient. Abdominal bloating Postprandial abdominal bloating. Low FODMAP diet. Patient also is constipated most likely gas trapping due to constipation. Patient denies any abdominal pain Constipation Patient can start Dulcolax at bedtime. Patient was encouraged to increase fluid intake and activity to promote better bowel motility. Dysphagia Patient was encouraged to eat small bites. Occasional dysphagia, however patient was encouraged to keep her appointment for barium swallow. I will see her in 5 weeks, sooner on as needed basis. Patient is agreeable to this plan and verbalizes understanding of instructions. She was given the opportunity to ask questions and all questions answered. ? * TODAY'S VISIT: Patient is here today for follow-up and to discuss barium swallow results. Patient reports that she is able to eat and has no trouble swallowing. Patient is taking lansoprazole in the morning and famotidine at bedtime and feels like her symptoms of acid reflux are suppressed. Patient continues to have occasional constipation. Patient had episode of rectal pain radiating to her back. Patient reports that she was constipated at that time. Small amount of blood after bowel movement. Patient is taking Linzess 145 mcg and feels like she continues to have trouble moving her bowels. Patient reports that she is drinking fluids, however she might not be drinking enough fluids daily. [facility] Medical History Duodenitis Hiatal hernia Chronic GERD Right knee pain Left knee pain SAMRA (generalized anxiety disorder) Migraines Mild recurrent major depression Chest pain Surgical History Hx of colonoscopy Hx of appendectomy History of esophagogastroduodenoscopy (EGD) Hx of cholecystectomy Hx of tubal ligation Family History Mother Diabetes Arthritis Father Diabetes Arthritis Sister Cancer Colon cancer, Onset Age: 35 Paternal Uncle Cancer Social History Housing: House Alcohol intake: never Patient Tobacco Use Status: Never used Tobacco e-Cigarette/Vaping Use: Never Used Second Hand Smoke Exposure: No service: No Current occupational status: employed 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 Current occupational exposures/hazards: No Cognitive needs: No Hearing needs: No Vision needs: Yes Female Reproductive History Menstrual Age of Menarche: 12 Review of Systems Const Denies weight gain and Denies weight loss ENT Reports no additional complaints, Denies dysphagia and Denies odynophagia Card Reports no additional complaints Resp Reports no additional complaints GI Denies abdominal pain, Denies belching, Denies melena, Denies bloating, Denies change in bowel habits, Reports constipation, Denies dysphagia, Denies excessive flatus, Denies dyspepsia, Denies heartburn, Denies diarrhea, Denies loose stools, Denies nausea, Denies odynophagia, Denies vomiting and Reports other (Rectal pain) Musc Reports no additional complaints Neuro Reports no additional complaints Psych Reports no additional complaints Endo Reports no additional complaints Physical Exam Vital Signs: Last Vital Signs Pulse 78 12/11/22 13:13 BP 125/81 12/11/22 13:13 BMI result Body Mass Index 24.6 Const General: healthy appearing, no acute distress and well developed Nutritional Appearance: well nourished Orientation/consciousness: patient oriented x3 HE[place] Head: Yes normal to inspection, Yes normocephalic and Yes atraumatic Face and sinus: Yes normal facial exam Mouth: Normal oral and palatal mucosa present Throat: Yes posterior oropharynx normal, Yes tonsils normal and Yes uvula midline Eyes General: appearance normal, both eyes and all related structures Neck Neck: Yes normal visual inspection, Yes full ROM and Yes trachea midline Thyroid: Thyroid normal Resp Effort & Inspection: normal respiratory effort, able to speak in complete sentences, no tracheal deviation and symmetric chest movement Auscultation: clear to auscultation bilaterally Cardio Rate: regular rate Heart sounds: S1 normal heart sound present and S2 normal heart sound present GI Inspection: Yes normal to inspection and No distended Palpation (GI): Soft to palpation, not firm, nontender and No hepatosplenomegaly present Auscultation: normal bowel sounds General: Yes no CVA tenderness Back/Spine/Pelvis Back: no CVA tenderness Skin General skin exam: elasticity normal, turgor normal and dry skin Neuro General: patient oriented x3 Psych Appearance: grossly normal Mental Status: mental status grossly normal Results Reviewed Results Reviewed: BARIUM SWALLOW 11/21/2022 FINDINGS: Following oral administration of thick barium, barium-coated turkey and barium tablet in upright view, there is normal propagation of bolus from the oral cavity, through the pharynx and esophagus and into the stomach. Mild hypertrophic mucosal changes seen in the pharynx where patient complains of pain. No intrinsic lesion or extrinsic compression seen in the esophagus. No laryngeal penetration or aspiration. FL/FL barium swallow IMPRESSION: Nonspecific mild mucosal thickening in the pharynx. Otherwise unremarkable barium swallow exam. Assessment & Plan Assessment & Plan (1) Chronic GERD: Code(s): K21.9 - Gastro-esophageal reflux disease without esophagitis (2) IBS (irritable bowel syndrome): Code(s): K58.9 - Irritable bowel syndrome without diarrhea Qualifiers: Irritable bowel syndrome type: with constipation Qualified Code(s): K58.1 - Irritable bowel syndrome with constipation (3) Abdominal bloating: Code(s): R14.0 - Abdominal distension (gaseous) (4) Constipation: Code(s): K59.00 - Constipation, unspecified Qualifiers: Constipation type: chronic idiopathic constipation Qualified Code(s): K59.04 - Chronic idiopathic constipation Plan Will increase Linzess to 290 mcg daily. Patient was also encouraged to increase fluid intake and activity to promote better bowel motility. Patient was encouraged to take the medication every day. She can use 2-3 times daily for hemorrhoids. Continue lansoprazole in the morning and famotidine min bedtime. Discussed with patient avoiding dietary triggers. Stop taking NSAIDs. Patient was encouraged to avoid late night snacking. Staying upright for minimal 3 hours after meals discussed with patient. Patient no longer has dysphagia. I will see patient in 3 months, sooner on as needed basis. Patient is agreeable to this plan and verbalizes understanding of instructions. She was given the opportunity to ask questions and all questions answered. Thank you for allowing to participate in her care Medications: New linaclotide (Linzess) 290 mcg PO QAM 30 caps 4RF K59.00 - Constipation, unspecified hydrocortisone 2.5% (Proctosol HC) 1 appl DC BID-QID PRN 30 grams 2RF hemorrhoids K64.9 - Unspecified hemorrhoids Discontinued linaclotide Discontinued Reason: Doctor's Order 145 mcg PO DAILY 90 caps 3RF K59.04 - Chronic idiopathic constipation Coding Level of Care Code Est Pt Level 4 (48423) Diagnoses Chronic GERD K21.9 Irritable bowel syndrome with constipation K58.1 Irritable bowel syndrome type: with constipation Abdominal bloating R14.0 Chronic idiopathic constipation K59.04 Constipation type: chronic idiopathic constipation Time Spent (min) 35 Comment 20 minutes spent with patient and additional 15 minutes spent reviewing her records
[2022-12-11 13:13] VITALS: BP 125/81; PULSE 78; BMI 24.6
== END 2022-12-11 13:52 | disposition home or self-care (01) ==
PROVIDERS: PCP Internal Medicine; Visit Provider Nurse Practitioner Family
DX: K21.9 Gastro-esophageal reflux disease without esophagitis (principal); K58.1 Irritable bowel syndrome with constipation; R14.0 Abdominal distension (gaseous); K59.04 Chronic idiopathic constipation
CPT/HCPCS: 99214

== ENCOUNTER → 2022-12-11 12:57 | Outpatient (BNVA) | payer OTHER, SELFPAY | PROVIDERS: PCP Internal Medicine; Visit Provider Nurse Practitioner Family | DX: K59.04 Chronic idiopathic constipation (principal); K21.9 Gastro-esophageal reflux disease without esophagitis; K58.1 Irritable bowel syndrome with constipation; R14.0 Abdominal distension (gaseous) | CPT/HCPCS: 99212 ==

== ENCOUNTER 2022-12-13 15:02 | Outpatient (AMB) | payer OTHER, SELFPAY ==
--- NOTE | 2022-12-13 15:11 | MHC.OFFVIS ---
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 Patient states Pam been having migraine since the age of 14. I get migraines frequently last month I had a bad migraine] where I couldn't feel my face, arm and my face as well. Allergies No Known Allergies [No Known Allergies*] Allergy (Verified 12/13/22 15:17) Medication List - Last Reconciled 12/13/22 by NGUYEN Kilgore amitriptyline 10 mg PO BEDTIME 90 days bisacodyl (Dulcolax (bisacodyl)) 10 mg (2 x 5 mg) PO BEDTIME famotidine (Pepcid) 20 mg PO BEDTIME hydrocortisone 2.5% (Proctosol HC) 1 appl CO BID-QID PRN hydroxyzine pamoate 50 mg PO BID PRN lansoprazole 30 mg PO DAILY linaclotide (Linzess) 290 mcg PO QAM polyethylene glycol 3350 (Miralax) 17 grams PO DAILY sertraline 25 mg PO DAILY sumatriptan succinate 25 mg PO Q2-4H PRN 30 days HPI HPI Comments History of Present Illness Details Right-handed 32-yr-old female presents for new pt evaluation of headache disorder. She has had migraine since age 14 w/o known precipitating cause. Over time, the migraines have increased in frequency, intensity, and complexity. More recently she has started having migraine attacks a/w right periorbital discoloration (pt shows a photo of ehr in the ER), chest pain and LUE numbness. In July, when this 1st happened, pt had [facility] [place] ER eval. EKG was normal. Headache questionnaire: Previous work-up? Unsure- pt does not have records from [place]. Typical headache characteristics: Prodrome symptoms? Unsure Aura? Denies visual aura Location, quality, characteristics? Usually the right frontal/temporal pulsating strong pain. Pain intensity? 10/10 Associated symptoms? Photophobia, phonophobia, osmophobia, allodynia, nasuea, vomitting, not much dizziness, brain fog, fatigue. Focal weakness, Parethesias, Autonomic s/s? Right eye region numbness and skin darkening (like a raccoon eye). In July, started also having chest pains a/w LUE numbness with migraine. Postdrome? She will feel tired Triggers? Stress or not sleeping Any positional, valsalva, exertional, sexual activity triggers? None Menstrual triggers? Yes Time of day? No specific time of day Duration? 1-7 days Frequency? Every day How does headache impact your life? Needs to miss work when she has a severe migraine attack. 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 Current acute medication use/interventions: Sumatriptan 25mg- helps some. Previous acute medication use: Fioricet- ineffective Current preventative medication use: Amitriptyline 10mg qhs- unsure of effect Previous preventative medication use: None Non-pharmacological interventions: Ice, cold water History of musculoskeletal disorders or injury? None History of concussion/head injury? None History of mood disorder? At times anxiety. Denies history of panic attacks. History of sleep disorder? Has never slept well History of respiratory disease? None History of CV disease? Denies cardiac history. The episodes of chest pain only occur w/ the headache attacks- she thinks it is anxiety History of coagulopathy? None History of endocrine or metabolic disease? None History of seizure? None History of GI disorder? Constipation, acid reflux. States she is f/b GI. Other? [] Family planning? None Family history of migraine or other headache disorder? Her sister. [facility] Medical History Duodenitis Hiatal hernia Chronic GERD Right knee pain Left knee pain SAMRA (generalized anxiety disorder) Migraines Mild recurrent major depression Chest pain Surgical History Hx of colonoscopy Hx of appendectomy History of esophagogastroduodenoscopy (EGD) Hx of cholecystectomy Hx of tubal ligation Family History Mother Diabetes Arthritis Father Diabetes Arthritis Sister Cancer Colon cancer, Onset Age: 35 Paternal Uncle Cancer Social History Housing: House Alcohol intake: never Patient Tobacco Use Status: Never used Tobacco e-Cigarette/Vaping Use: Never Used Second Hand Smoke Exposure: No service: No Current occupational status: employed 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 Head: Yes normocephalic Resp Effort & Inspection: normal respiratory effort and able to speak in complete sentences Neuro General: patient oriented x3 Cranial nerves: Yes CN's II-XII intact bilaterally Cognition (Neuro): normal cognition Gait exam (Neuro): Normal gait present Motor exam (neuro): 5/5 motor strength present throughout Deep tendon reflexes (DTR's): Right triceps reflex intensity grade: 2+, Left triceps reflex intensity grade: 2+, Rt Biceps (C5, C6): 2+, Left biceps reflex intensity grade: 2+, Right brachioradialis reflex intensity grade: 2+, Left brachioradialis reflex intensity grade: 2+, Right patellar reflex intensity grade: 2+ and Left patellar reflex intensity grade: 2+ Coordination: [id number] test normal, tandem gait normal and Romberg test negative Pupils: Normal pupillary reactivity/response: bilateral Psych Appearance: grossly normal Mental Status: mental status grossly normal Speech and movement: Normal speech and movement present Affect: normal affect Attitude: cooperative Thought process: Normal thought process present Assessment & Plan Assessment & Plan (1) Worsening headaches: Code(s): R51.9 - Headache, unspecified (2) Left upper extremity numbness: Code(s): R20.0 - Anesthesia of skin (3) Migraines: Code(s): G43.909 - Migraine, unspecified, not intractable, without status migrainosus Plan Pt advised to undergo brain MRI w/wo to assess for secondary etiologies of headache attacks a/w right periorbital discoloration and LUE numbness. For overall headache management: Discussed importance of good self-care, including but not limited to maintaining a healthy diet, adequate fluid intake, adequate sleep, and engaging in regular physical activity. For headache triggers: Track headaches. For acute headache treatment: Discussed importance of taking acute medications at the first sign of headache, however stressed importance of avoiding acute medication overuse (especially with combined headache medications). Increase Sumatriptan to 50-100mg prn. Reviewed potential adverse effects of triptans, including but not limited to nausea, fatigue, chest tightness/tingling (usually passes within a few minutes), medication overuse headaches. Previous acute migraine medication trials: Fioricet ineffective Acute migraine medication contraindications: None at this time For headache prevention medication: Discussed that preventative medications should be taken routinely as prescribed for best effect, it may take several weeks for full effect to take effect. Start Riboflavin 400mg qam Start Magnesium 400mg qhs Increase Amitriptylinf from 10 to 20mg qhs- may help sleep as well. Reviewed potential adverse effects of TCAs, including but not limited to fatigue, cardiac arrhythmias, mood changes. Previous migraine prevention medication trials: None other Migraine prevention medication contraindications: None at this time. Pt to follow-up in 3-4 months or sooner prn. Orders: Orders MR head/brain wo/w con Today G43.909 - Migraine, unspecified, not intractable, without status migrainosus, R20.0 - Anesthesia of skin, R51.9 - Headache, unspecified Medications: New sumatriptan succinate 50 - 100 mg orally at onset of headache, may repeat in 2 hrs PRN; max 2 tabs per day or 4 tabs/week (may take with Ibuprofen) 12 tabs 6RF migraine headache 30 days riboflavin (vitamin B2) 400 mg PO DAILY 30 tabs 6RF 30 days magnesium oxide may hold for loose stools 400 mg PO BEDTIME 30 tabs 6RF 30 days Changed From amitriptyline 10 mg PO BEDTIME 90 days 90 tabs 1RF G43.909 - Migraine, unspecified, not intractable, without status migrainosus To amitriptyline 20 mg (2 x 10 mg) PO BEDTIME 60 tabs 3RF 30 days G43.909 - Migraine, unspecified, not intractable, without status migrainosus Discontinued sumatriptan succinate do not exceed 8 doses per 24 hrs Discontinued Reason: Doctor's Order 25 mg PO Q2-4H 30 days PRN 9 tabs 3RF migraine headache Coding Level of Care Code New Pt Level 4 (29885) Diagnoses Worsening headaches R51.9 Left upper extremity numbness R20.0 Migraines G43.909
[2022-12-13 15:15] VITALS: PULSE 80; O2SAT 97; BMI 24.6
== END 2022-12-13 16:04 | disposition home or self-care (01) ==
PROVIDERS: PCP Internal Medicine; Visit Provider Nurse Practitioner Family
DX: R51.9 Headache, unspecified (principal); R20.0 Anesthesia of skin; G43.909 Migraine, unspecified, not intractable, without status migrainosus
CPT/HCPCS: 99204

== ENCOUNTER → 2022-12-13 15:02 | Outpatient (BNVA) | payer OTHER, SELFPAY | PROVIDERS: PCP Internal Medicine; Visit Provider Nurse Practitioner Family ==

== ENCOUNTER 2023-01-01 07:33 | Outpatient (REF) | payer OTHER, SELFPAY ==
[2023-01-01 07:51] LABS: MANUAL DIFF FLAG NO
[2023-01-01 08:25] LABS: Basophils Absolute Auto 0.1 X10*3/uL (0.0-0.2); Basophils Percent Auto 0.7 % (0-2); Eosinophils Absolute Auto 0.1 X10*3/uL (0.0-0.4); Eosinophils Percent Auto 1.9 % (0-4); Hematocrit 39.5 % (37.0-47.0); Hemoglobin 12.6 g/dl (12.0-16.0); Imm Gran Abs Auto 0.03 X10*3/uL (0.00-0.03); Imm Gran Pct Auto 0.4 % (0.0-0.4); Lymphocytes Absolute Auto 2.2 X10*3/uL (1.2-4.9); Lymphocytes Percent Auto 32.9 % (20-40); Mean Corpuscular HGB Conc 31.9 g/dl (31.0-35.0); Mean Corpuscular Hemoglobin 27.6 pg (27.0-33.0); Mean Corpuscular Volume 86.6 fL (80.0-98.0); Mean Platelet Volume 10.6 fL (9.4-12.3); Monocytes Absolute Auto 0.6 X10*3/uL (0.1-1.2); Monocytes Percent Auto 8.6 % (2-11); Neutrophils Absolute Auto 3.7 x10*3/uL (2.0-8.3); Neutrophils Percent Auto 55.5 % (45-73); Platelet Count 237 X10*3/uL (160-400); Red Blood Count 4.56 X10*6/uL (4.20-5.50); White Blood Count 6.7 X10*3/uL (4.8-10.8)
[2023-01-01 08:48] LABS: Alanine Aminotransferase 6 U/L (0-31); Albumin Level 4.1 g/dL (3.5-5.0); Alkaline Phosphatase 46 U/L (39-117); Anion Gap 11 (12-20); Aspartate Amino Transferase 12 U/L (5-31); Bilirubin Total 0.4 mg/dL (0.0-1.0); Blood Urea Nitrogen 12 mg/dL (9-16); Calcium 9.2 mg/dL (8.4-10.2); Carbon Dioxide 29 mmol/L (22-29); Chloride 106 mmol/L (96-108); Cholesterol 164 mg/dL (<200); Estimated Glomerular Filt Rate > 60; Glucose Fasting 98 mg/dL (60-99); HDL Cholesterol 50 mg/dL (>40); LDL Cholesterol Calculated 101 mg/dL (<100); Potassium 4.1 mmol/L (3.3-5.1); Sodium 142 mmol/L (135-145); Total Protein 7.3 g/dL (6.5-8.0); Triglycerides 68 mg/dL (<150)
[2023-01-03 19:03] LABS: TS Negative Control Passed; TS Panel A 0; TS Panel B 0; TS Positive Control Passed; TSpotTB Negative (Negative)
== END 2023-01-01 07:34 | disposition home or self-care (01) ==
LOC: HO.LAB 07:33
PROVIDERS: PCP Internal Medicine; Visit Provider Internal Medicine
DX: Z00.00 Encounter for general adult medical examination without abnormal findings (principal); G43.909 Migraine, unspecified, not intractable, without status migrainosus; Z11.1 Encounter for screening for respiratory tuberculosis
CPT/HCPCS: 36415; 80053; 80061; 85025; 86481

== ENCOUNTER 2023-02-05 13:49 | Outpatient (REF) | payer OTHER, SELFPAY ==
--- NOTE | ~2023-02-05 | MR_ITS ---
EXAMINATION: MR BRAIN WITHOUT AND WITH CONTRAST CLINICAL INFORMATION: Headache. Right periorbital discoloration. Left upper extremity numbness. COMPARISON: CT head from 05/29/2016. TECHNIQUE: MRI of the brain was obtained using routine sequences without and following the administration of 6.5 mL of Gadavist intravenous contrast. FINDINGS: No focal restricted diffusion is demonstrated to suggest acute or subacute cerebral ischemia. No evidence of acute or chronic hemorrhagic products on heme-sensitive imaging. Few nonspecific tiny scattered deep white matter T2 FLAIR hyperintensities. Otherwise, normal parenchymal signal characteristics. The ventricles are normal in morphology and size. No abnormal mass effect. No midline shift. Normal appearance of the pituitary gland. Normal positioning of the cerebellar tonsils. Normal arterial and venous vascular flow voids are present. No abnormal contrast enhancement. Normal, homogeneous marrow signal. Mild mucosal thickening of the paranasal sinuses. No signal abnormalities within the mastoids. MR/MR head/brain wo/w con IMPRESSION: 1. No acute intracranial abnormalities. No abnormal intracranial enhancement. 2. Minimal nonspecific white matter changes.
[2023-02-05] MEDS: gadobutroL 7.5 ML VIAL IVPUSH (14:46)
== END 2023-02-05 13:50 | disposition home or self-care (01) ==
LOC: HO.MRI 13:49
PROVIDERS: PCP Internal Medicine; Visit Provider Nurse Practitioner Family
DX: R20.0 Anesthesia of skin (principal); G43.909 Migraine, unspecified, not intractable, without status migrainosus
CPT/HCPCS: 70553; A9585

== ENCOUNTER 2023-03-13 12:52 | Outpatient (AMB) | payer OTHER, SELFPAY ==
--- NOTE | 2023-03-13 12:56 | MHC.OFFVIS ---
Intake Vital Signs 03/13/23 13:01 Height 5 ft 3 in Weight 145 lb 8.081 oz BMI 25.8 BP 114/73 Blood Pressure Location Lt brachial Position Sitting Pulse 69 Intake Visit Reasons: 3 month follow up Intake Note: Sandra presents in the office as a 3 month follow up. CC: She states that she is getting constipation still and she gets it most of the time. Solution Developer Required: Yes Solution Developer Name: [id number] Allergies No Known Allergies [No Known Allergies*] Allergy (Verified 03/13/23 13:01) HPI 3 month follow up HPI Details LAST VISIT: Chronic GERD IBS (irritable bowel syndrome) Abdominal bloating Constipation Plan Will increase Linzess to 290 mcg daily. Patient was also encouraged to increase fluid intake and activity to promote better bowel motility. Patient was encouraged to take the medication every day. She can use 2-3 times daily for hemorrhoids. Continue lansoprazole in the morning and famotidine min bedtime. Discussed with patient avoiding dietary triggers. Stop taking NSAIDs. Patient was encouraged to avoid late night snacking. Staying upright for minimal 3 hours after meals discussed with patient. Patient no longer has dysphagia. I will see patient in 3 months, sooner on as needed basis. Patient is agreeable to this plan and verbalizes understanding of instructions. She was given the opportunity to ask questions and all questions answered. ? Thank you for allowing to participate in her care Medications New linaclotide (Linzess) 290 mcg PO QAM 30 caps 4RF K59.00 hydrocortisone 2.5% (Proctosol HC) 1 appl LA BID-QID PRN 30 grams 2RF hemorrhoids K64.9 Discontinued linaclotide Discontinued Reason: Doctor's Order 145 mcg PO DAILY 90 caps 3RF K59.04 TODAY'S VISIT Patient is here today for follow-up. Patient reports that she has been doing little better, however she continues to be constipated. Patient states that she takes Linzess 290 mcg daily, able to move her bowels, however occasionally patient still feels like she is constipated. Patient denies melena, unintentional weight loss or ribbon like stools. Patient reports occasional blood after bowel movement when constipated. Occasional postprandial abdominal bloating. Patient denies any nausea or vomiting. Denies any dyspepsia, dysphagia or odynophagia. Patient denies any other GI concerning symptoms. [facility] Medical History Duodenitis Hiatal hernia Chronic GERD Right knee pain Left knee pain SAMRA (generalized anxiety disorder) Migraines Mild recurrent major depression Chest pain Surgical History Hx of colonoscopy Hx of appendectomy History of esophagogastroduodenoscopy (EGD) Hx of cholecystectomy Hx of tubal ligation Family History Mother Diabetes Arthritis Father Diabetes Arthritis Sister Cancer Colon cancer, Onset Age: 35 Paternal Uncle Cancer Social History Housing: House Alcohol intake: never Patient Tobacco Use Status: Never used Tobacco e-Cigarette/Vaping Use: Never Used Second Hand Smoke Exposure: No service: No Current occupational status: employed 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 Current occupational exposures/hazards: No Cognitive needs: No Hearing needs: No Vision needs: Yes Female Reproductive History Menstrual Age of Menarche: 12 Review of Systems Const Denies weight gain and Denies weight loss ENT Reports no additional complaints, Denies dysphagia and Denies odynophagia Card Reports no additional complaints Resp Reports no additional complaints GI Denies abdominal pain, Denies belching, Denies melena, Denies bloating, Reports constipation, Denies dysphagia, Denies excessive flatus, Denies dyspepsia, Denies heartburn, Denies diarrhea, Denies loose stools, Denies nausea, Denies odynophagia and Denies vomiting Reports no additional complaints Musc Reports no additional complaints Neuro Reports no additional complaints Psych Reports no additional complaints Endo Reports no additional complaints Physical Exam Vital Signs: Last Vital Signs Pulse 69 03/13/23 13:01 BP 114/73 03/13/23 13:01 BMI result Body Mass Index 25.8 Const General: healthy appearing, no acute distress and well developed Nutritional Appearance: well nourished Orientation/consciousness: patient oriented x3 Resp Effort & Inspection: normal respiratory effort, able to speak in complete sentences, no tracheal deviation and symmetric chest movement Auscultation: clear to auscultation bilaterally Cardio Rate: regular rate GI Inspection: Yes normal to inspection and No distended Palpation (GI): Soft to palpation, not firm, nontender and No hepatosplenomegaly present Auscultation: normal bowel sounds General: Yes no CVA tenderness Back/Spine/Pelvis Back: no CVA tenderness Skin General skin exam: elasticity normal, turgor normal and dry skin Neuro General: patient oriented x3 Psych Appearance: grossly normal Mental Status: mental status grossly normal Assessment & Plan Assessment & Plan (1) Chronic GERD: Code(s): K21.9 - Gastro-esophageal reflux disease without esophagitis (2) IBS (irritable bowel syndrome): Code(s): K58.9 - Irritable bowel syndrome without diarrhea Qualifiers: Irritable bowel syndrome type: with constipation Qualified Code(s): K58.1 - Irritable bowel syndrome with constipation (3) Abdominal bloating: Code(s): R14.0 - Abdominal distension (gaseous) (4) Constipation: Code(s): K59.00 - Constipation, unspecified Qualifiers: Constipation type: chronic idiopathic constipation Qualified Code(s): K59.04 - Chronic idiopathic constipation Plan Patient can continue taking Linzess every morning. Encourage patient to drink minimum 32-48 oz of water daily. Patient currently drinks about 2 bottles which is total of 16 oz. patient can start taking Dulcolax tablets in the evening 1 to 2 daily to help her move her bowels better. Patient was encouraged to increase fiber as well. Continue avoiding dietary triggers and late night snacking. Staying upright for minimum 3 hours after meals discussed with patient. Continue lansoprazole and famotidine. Patient will return to the office in 6 months, sooner on as needed basis. Patient is agreeable to this plan and verbalizes understanding of instructions. She was given the opportunity to ask questions and all questions answered. Thank you for allowing me to participate in her care Coding Level of Care Code Est Pt Level 4 (28047) Diagnoses Chronic GERD K21.9 Irritable bowel syndrome with constipation K58.1 Irritable bowel syndrome type: with constipation Abdominal bloating R14.0 Chronic idiopathic constipation K59.04 Constipation type: chronic idiopathic constipation Time Spent (min) 35 Comment 25 minutes spent with patient and additional 10 minutes spent reviewing her records
[2023-03-13 13:01] VITALS: BP 114/73; PULSE 69; BMI 25.8
== END 2023-03-13 13:24 | disposition home or self-care (01) ==
PROVIDERS: PCP Internal Medicine; Visit Provider Nurse Practitioner Family
DX: K21.9 Gastro-esophageal reflux disease without esophagitis (principal); K58.1 Irritable bowel syndrome with constipation; R14.0 Abdominal distension (gaseous); K59.04 Chronic idiopathic constipation
CPT/HCPCS: 99214

== ENCOUNTER → 2023-03-13 12:52 | Outpatient (BNVA) | payer OTHER, SELFPAY | PROVIDERS: PCP Internal Medicine; Visit Provider Nurse Practitioner Family | DX: K21.9 Gastro-esophageal reflux disease without esophagitis (principal); K58.1 Irritable bowel syndrome with constipation; R14.0 Abdominal distension (gaseous); K59.04 Chronic idiopathic constipation | CPT/HCPCS: 99212 ==

== ENCOUNTER 2023-04-03 11:28 | Outpatient (REF) | payer OTHER, SELFPAY ==
[2023-04-06 12:44] LABS: TS Negative Control Passed; TS Panel A 0; TS Panel B 0; TS Positive Control Passed; TSpotTB Negative (Negative)
== END 2023-04-03 11:29 | disposition home or self-care (01) ==
LOC: HO.LAB 11:28
PROVIDERS: PCP Internal Medicine; Visit Provider Internal Medicine
DX: Z11.1 Encounter for screening for respiratory tuberculosis (principal)
CPT/HCPCS: 36415; 86481

== ENCOUNTER 2023-06-14 08:42 | Outpatient (AMB) | payer OTHER, SELFPAY ==
--- NOTE | 2023-06-14 08:51 | A.OFFVIS_ITS ---
Vital Signs 06/14/23 08:52 Height 5 ft 3 in Weight 148 lb 4 oz BMI 26.3 BP 114/74 Blood Pressure Location Rt brachial Position Sitting Intake Visit Reasons: 4M F/U Migraines with faces-CONF Intake Note: Patient presents for follow up migraines. patient had a headaches all week. Allergies No Known Allergies [No Known Allergies*] Allergy (Verified 06/14/23 08:55) Medication List - Last Reconciled 06/14/23 by NGUYEN Kilgore amitriptyline 20 mg (2 x 10 mg) PO BEDTIME 30 days bisacodyl (Dulcolax (bisacodyl)) 10 mg (2 x 5 mg) PO BEDTIME famotidine (Pepcid) 20 mg PO BEDTIME hydrocortisone 2.5% (Proctosol HC) 1 appl [place] BID-QID PRN hydroxyzine pamoate 50 mg PO BID PRN lansoprazole 30 mg PO DAILY linaclotide (Linzess) 290 mcg PO QAM magnesium oxide 400 mg PO BEDTIME 30 days polyethylene glycol 3350 (Miralax) 17 grams PO DAILY riboflavin (vitamin B2) 400 mg PO DAILY 30 days sertraline 25 mg PO DAILY sumatriptan succinate 50 - 100 mg orally at onset of headache, may repeat in 2 hrs PRN; max 2 tabs per day or 4 tabs/week (may take with Ibuprofen) 30 days triamcinolone acetonide 0.5% 1 appl topical DAILY 2 weeks HPI Comments Details: 33-yr-old female presents for f/u visit. Pt denies any significant interval medical changes. Pt continues to have migraine. She increased Amitriptyline to 20mg qhs, but continues to have frequent headache. She states she is tolerating Amitriptyline well- denies morning sleepiness. Tolerating B2 and Mag well. She did not receive the Sumatriptan 100mg. Baseline headache characteristics: Severe, Usually the right frontal/temporal pulsating strong pain. A/w Photophobia, phonophobia, osmophobia, allodynia, nasuea, vomiting, not much dizziness, brain fog, fatigue, right eye region numbness and skin darkening (like a raccoon eye). In July, started also having chest pains a/w LUE numbness with migraine. Postdrome: She will feel tired Triggers: Stress, not sleeping, menstrual cycle. PFSH Medical History Duodenitis Hiatal hernia Chronic GERD Right knee pain Left knee pain SAMRA (generalized anxiety disorder) Migraines Mild recurrent major depression Chest pain Surgical History Hx of colonoscopy Hx of appendectomy History of esophagogastroduodenoscopy (EGD) Hx of cholecystectomy Hx of tubal ligation Family History Mother Diabetes Arthritis Father Diabetes Arthritis Sister Cancer Colon cancer, Onset Age: 35 Paternal Uncle Cancer Social History Housing: House Alcohol intake: never Patient Tobacco Use Status: Never used Tobacco e-Cigarette/Vaping Use: Never Used Second Hand Smoke Exposure: No service: No Current occupational status: employed 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 Current occupational exposures/hazards: No Cognitive needs: No Hearing needs: No Vision needs: Yes Female Reproductive History Menstrual Age of Menarche: 12 Physical Exam Vital Signs: Last Vital Signs BP 114/74 06/14/23 08:52 BMI result Body Mass Index 26.3 Const General: cooperative and no acute distress Orientation/consciousness: patient oriented x3 Resp Effort & Inspection: normal respiratory effort and able to speak in complete sentences Neuro General: patient oriented x3 Cranial nerves: Yes CN's II-XII intact bilaterally Cognition (Neuro): normal cognition Psych Appearance: grossly normal Mental Status: mental status grossly normal Speech and movement: Normal speech and movement present Affect: normal affect Attitude: cooperative Assessment & Plan Assessment & Plan (1) Migraines: Code(s): G43.909 - Migraine, unspecified, not intractable, without status migrainosus Category: Medical (2) Left upper extremity numbness: Code(s): R20.0 - Anesthesia of skin Category: Medical Plan Reviewed Brain MRI w/wo- Normal. Minimal nonspecific white matter changes. 06/27/22, LUE EMG/NCS: normal. Will monitor response of headache tx on LUE numbness a/w migraine. Future considerations- c-spine imaging. ? For overall headache management: Track headaches. ? For acute headache treatment: Try Sumatriptan to 50-100mg prn. Previous acute migraine medication trials: Fioricet ineffective Acute migraine medication contraindications: None at this time ? For headache prevention medication: Continue Riboflavin 400mg qam Continue Magnesium 400mg qhs Increase Amitriptyline from 20mg qhs to 37.5-50mg qhs. Previous migraine prevention medication trials: None other Migraine prevention medication contraindications: None at this time. ? Pt to follow-up in 6 months or sooner prn. Medications: New amitriptyline 50 mg (2 x 25 mg) PO BEDTIME 60 tabs 6RF 30 days Changed From sumatriptan succinate (0.5 - 1 x 100 mg) 50 - 100 mg orally at onset of headache, may repeat in 2 hrs PRN; max 2 tabs per day or 4 tabs/week (may take with Ibuprofen) 30 days 12 tabs 6RF migraine headache To sumatriptan succinate 50 - 100 mg orally at onset of headache, may repeat in 2 hrs PRN; max 2 tabs per day or 4 tabs/week (may take with Ibuprofen) 12 tabs 6RF migraine headache 30 days Refilled riboflavin (vitamin B2) 400 mg PO DAILY 30 tabs 6RF 30 days magnesium oxide may hold for loose stools 400 mg PO BEDTIME 30 tabs 6RF 30 days Discontinued amitriptyline Discontinued Reason: Doctor's Order 20 mg (2 x 10 mg) PO BEDTIME 30 days 60 tabs 3RF G43.909 - Migraine, unspecified, not intractable, without status migrainosus Coding Level of Care Code Est Pt Level 4 (52473) Diagnoses Migraines G43.909 Left upper extremity numbness R20.0
[2023-06-14 08:52] VITALS: BP 114/74; BMI 26.3
== END 2023-06-14 09:44 | disposition home or self-care (01) ==
PROVIDERS: PCP Internal Medicine; Visit Provider Nurse Practitioner Family
DX: G43.909 Migraine, unspecified, not intractable, without status migrainosus (principal); R20.0 Anesthesia of skin
CPT/HCPCS: 99214

== ENCOUNTER → 2023-06-14 08:42 | Outpatient (BNVA) | payer OTHER, SELFPAY | PROVIDERS: PCP Internal Medicine; Visit Provider Nurse Practitioner Family | DX: G43.909 Migraine, unspecified, not intractable, without status migrainosus (principal); R20.0 Anesthesia of skin | CPT/HCPCS: 99212 ==

== ENCOUNTER 2023-09-11 12:55 | Outpatient (AMB) | payer OTHER, SELFPAY ==
--- NOTE | 2023-09-11 12:57 | A.OFFVIS_ITS ---
Vital Signs 09/11/23 13:06 Height 5 ft 3 in Weight 144 lb 9.972 oz BMI 25.6 BP 108/66 Blood Pressure Location Rt brachial Position Sitting Pulse 78 Pulse Source Pulse Oximeter Pulse Oximetry (%) 98 Oxygen Delivery Method Room Air Intake Visit Reasons: 6 month follow up Intake Note: Sandra presents in office today for a scheduled 6 mos FUV. CC; Pt reports that they are still experiencing moderate abdominal pain and difficulty with bowel movements. Pt reports that they have difficulty with fully emptying their bowels. Business Writer Required: Yes Business Writer Services: Business Writer Present Business Writer Name: [id number] Nancy Information Interpreted: non-clinical & clinical Accompanied by: Self / Same As Patient Allergies No Known Allergies [No Known Allergies*] Allergy (Verified 09/11/23 13:00) HPI HPI 6 month follow up: Details: LAST VISIT: Chronic GERD IBS (irritable bowel syndrome) Abdominal bloating Constipation Plan Patient can continue taking Linzess every morning. Encourage patient to drink minimum 32-48 oz of water daily. Patient currently drinks about 2 bottles which is total of 16 oz. patient can start taking Dulcolax tablets in the evening 1 to 2 daily to help her move her bowels better. Patient was encouraged to increase fiber as well. Continue avoiding dietary triggers and late night snacking. Staying upright for minimum 3 hours after meals discussed with patient. Continue lansoprazole and famotidine. Patient will return to the office in 6 months, sooner on as needed basis. Patient is agreeable to this plan and verbalizes understanding of instructions. She was given the opportunity to ask questions and all questions answered. TODAY'S VISIT Patient is here today for follow-up. Patient reports that she continues to be constipated. Patient is taking Dulcolax 2 tablets every evening sometimes no BM for 2-3 days. Patient ran out of Linzess few weeks ago. Patient reports that she is drinking plenty fluids. Patient denies any nausea or vomiting. Denies dyspepsia, dysphagia or odynophagia. Patient denies any melena, hematochezia, unintentional weight loss or ribbon like stools. [facility] Medical History Duodenitis Hiatal hernia Chronic GERD Right knee pain Left knee pain SAMRA (generalized anxiety disorder) Migraines Mild recurrent major depression Chest pain Surgical History Hx of colonoscopy Hx of appendectomy History of esophagogastroduodenoscopy (EGD) Hx of cholecystectomy Hx of tubal ligation Family History Mother Diabetes Arthritis Father Diabetes Arthritis Sister Cancer Colon cancer, Onset Age: 35 Paternal Uncle Cancer Social History Housing: House Alcohol intake: never Patient Tobacco Use Status: Never used Tobacco e-Cigarette/Vaping Use: Never Used Second Hand Smoke Exposure: No service: No Current occupational status: employed 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 Current occupational exposures/hazards: No Cognitive needs: No Hearing needs: No Vision needs: Yes Female Reproductive History Menstrual Age of Menarche: 12 Review of Systems Const Denies weight gain and Denies weight loss ENT Reports no additional complaints, Denies dysphagia and Denies odynophagia Card Reports no additional complaints Resp Reports no additional complaints GI Denies abdominal pain, Denies belching, Denies melena, Denies bloating, Reports constipation, Denies dysphagia, Denies excessive flatus, Denies dyspepsia, Denies heartburn, Denies diarrhea, Denies loose stools, Denies nausea, Denies odynophagia and Denies vomiting Reports no additional complaints Musc Reports no additional complaints Neuro Reports no additional complaints Psych Reports no additional complaints Endo Reports no additional complaints Physical Exam Vital Signs: Last Vital Signs Pulse 78 09/11/23 13:06 BP 108/66 09/11/23 13:06 Pulse Ox 98 09/11/23 13:06 Oxygen Delivery Method Room Air 09/11/23 13:06 BMI result Body Mass Index 25.6 Const General: healthy appearing, no acute distress and well developed Nutritional Appearance: well nourished Orientation/consciousness: patient oriented x3 Resp Effort & Inspection: normal respiratory effort, able to speak in complete sentences, no tracheal deviation and symmetric chest movement Auscultation: clear to auscultation bilaterally Cardio Rate: regular rate GI Inspection: Yes normal to inspection and No distended Palpation (GI): Soft to palpation, not firm, nontender and No hepatosplenomegaly present Auscultation: normal bowel sounds General: Yes no CVA tenderness Back/Spine/Pelvis Back: no CVA tenderness Skin General skin exam: elasticity normal, turgor normal and dry skin Neuro General: patient oriented x3 Psych Appearance: grossly normal Mental Status: mental status grossly normal Assessment & Plan Assessment & Plan (1) Chronic GERD: Code(s): K21.9 - Gastro-esophageal reflux disease without esophagitis Category: Medical (2) IBS (irritable bowel syndrome): Code(s): K58.9 - Irritable bowel syndrome without diarrhea Qualifiers: Irritable bowel syndrome type: with constipation Qualified Code(s): K58.1 - Irritable bowel syndrome with constipation (3) Abdominal bloating: Code(s): R14.0 - Abdominal distension (gaseous) (4) Constipation: Code(s): K59.00 - Constipation, unspecified Qualifiers: Constipation type: chronic idiopathic constipation Qualified Code(s): K59.04 - Chronic idiopathic constipation Plan Patient will start taking Linzess again. Dulcolax in the evening. Increase fluid intake and activity to promote better bowel motility. Continue lansoprazole in the morning and famotidine at bedtime on as needed basis. Patient was encouraged to avoid dietary triggers and late night snacking. Staying upright for minimum 3 hours after meals discussed with patient. Follow- up in 6 months, sooner on as needed basis. Patient is agreeable to this plan and verbalizes understanding of instructions. She was given the opportunity to ask questions and all questions answered. Thank you for allowing me to participate in her care Medications: Refilled linaclotide (Linzess) 290 mcg PO QAM 30 caps 4RF K59.00 - Constipation, unspecified Coding Level of Care Code Est Pt Level 3 (93293) Diagnoses Chronic GERD K21.9 Irritable bowel syndrome with constipation K58.1 Irritable bowel syndrome type: with constipation Abdominal bloating R14.0 Chronic idiopathic constipation K59.04 Constipation type: chronic idiopathic constipation Time Spent (min) 25 Comment 15 minutes spent with patient and additional 10 minutes spent reviewing records
[2023-09-11 13:06] VITALS: BP 108/66; PULSE 78; O2SAT 98; BMI 25.6
== END 2023-09-11 13:48 | disposition home or self-care (01) ==
PROVIDERS: PCP Internal Medicine; Visit Provider Nurse Practitioner Family
DX: K21.9 Gastro-esophageal reflux disease without esophagitis (principal); K58.1 Irritable bowel syndrome with constipation; R14.0 Abdominal distension (gaseous); K59.04 Chronic idiopathic constipation
CPT/HCPCS: 99213

== ENCOUNTER → 2023-09-11 12:55 | Outpatient (BNVA) | payer OTHER, SELFPAY | PROVIDERS: PCP Internal Medicine; Visit Provider Nurse Practitioner Family | DX: K21.9 Gastro-esophageal reflux disease without esophagitis (principal); K59.04 Chronic idiopathic constipation; K58.1 Irritable bowel syndrome with constipation; R14.0 Abdominal distension (gaseous); Z79.899 Other long term (current) drug therapy | CPT/HCPCS: 99212 ==

== ENCOUNTER 2023-09-27 10:18 | Outpatient (REF) | payer OTHER, SELFPAY ==
[2023-09-28 09:17] LABS: Bacterial Vaginosis PCR NEGATIVE (Negative); Candida Group PCR NOT DETECTED (Not Detect); Candida glab krusei PCR NOT DETECTED (Not Detect); Trichomonas vaginalis PCR NOT DETECTED (Not Detect)
[2023-09-28 09:55] LABS: CT PCR NOT DETECTED (Not Detect.); NG PCR NOT DETECTED (Not Detect.)
== END 2023-09-27 10:19 | disposition home or self-care (01) ==
LOC: HO.LAB 10:18
PROVIDERS: PCP Internal Medicine; Visit Provider Advanced Practice Midwife
DX: N89.8 Other specified noninflammatory disorders of vagina (principal); Z20.2 Contact with and (suspected) exposure to infections with a predominantly sexual mode of transmission; N92.0 Excessive and frequent menstruation with regular cycle; N94.6 Dysmenorrhea, unspecified
CPT/HCPCS: 0352U; 87491; 87591; 99395

== ENCOUNTER 2023-09-27 10:18 | Outpatient (AMB) | payer OTHER, SELFPAY ==
--- NOTE | 2023-09-27 11:03 | A.OFFVIS_ITS ---
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 Information Interpreted: clinical only Stitchdown Thread Laster: Stitchdown Thread Laster Present Allergies No Known Allergies [No Known Allergies*] Allergy (Verified 09/27/23 11:07) Medication List - Last Reconciled 09/27/23 by Ciarra Anguiano, SUSANA amitriptyline 50 mg (2 x 25 mg) PO BEDTIME 30 days bisacodyl (Dulcolax (bisacodyl)) 10 mg (2 x 5 mg) PO BEDTIME famotidine (Pepcid) 20 mg PO BEDTIME hydrocortisone 2.5% (Proctosol HC) 1 appl TN BID-QID PRN hydroxyzine pamoate 50 mg PO BID PRN lansoprazole 30 mg PO DAILY linaclotide (Linzess) 290 mcg PO QAM magnesium oxide 400 mg PO BEDTIME 30 days polyethylene glycol 3350 (Miralax) 17 grams PO DAILY riboflavin (vitamin B2) 400 mg PO DAILY 30 days sertraline 25 mg PO DAILY sumatriptan succinate 50 - 100 mg orally at onset of headache, may repeat in 2 hrs PRN; max 2 tabs per day or 4 tabs/week (may take with Ibuprofen) 30 days triamcinolone acetonide 0.5% 1 appl topical DAILY 2 weeks Is last menstrual period known: Yes Last menstrual period: 09/09/23 Do you need a note to return to daycare/school/sports/work: No 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 This took quite some time to elicit in her history. She also has had lots various testing done she has been getting migraines with various effects with her face and lips and sensations and she has more follow-up when I asked her if anything shows up eventually she was able to share that nothing really did show up in the MRI. She also sometimes gets other pains in her body in various places but it is hard to locate exactly where it is and also hard to link it to anything She is wondering if her uterus could just be taken out to help with her periods her periods have also become very heavy and clotty. She has had her tubes tied for control [facility] Medical History Duodenitis Hiatal hernia Chronic GERD Right knee pain Left knee pain SAMRA (generalized anxiety disorder) Migraines Mild recurrent major depression Chest pain Surgical History Hx of colonoscopy Hx of appendectomy History of esophagogastroduodenoscopy (EGD) Hx of cholecystectomy Hx of tubal ligation Family History Mother Diabetes Arthritis Father Diabetes Arthritis Sister Cancer Colon cancer, Onset Age: 35 Paternal Uncle Cancer Social History Housing: House Alcohol intake: never Patient Tobacco Use Status: Never used Tobacco e-Cigarette/Vaping Use: Never Used Second Hand Smoke Exposure: No service: No Current occupational status: employed 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 Current occupational exposures/hazards: No Cognitive needs: No Hearing needs: No Vision needs: Yes Female Reproductive History Menstrual Age of Menarche: 12 Duration of menses: 3-5 days Date of last menstrual period: 09/09/23 control method: permanent sterilization Total pregnancies: 3 Full term: 3 Date of last pap smear: 08/09/21 (negative) History of abnormal pap smear: No Physical Exam Vital Signs: Last Vital Signs BP 118/63 09/27/23 11:10 BMI result Body Mass Index 26.0 Const General: healthy appearing, comfortable, no acute distress, well developed and alert Nutritional Appearance: average body habitus Orientation/consciousness: patient oriented x3 Limitations: no limitations HEENT Head: Yes normocephalic Neck Neck: Yes normal visual inspection Chest Chest palpation & inspection: normal inspection of the chest Breast/axilla inspection: normal inspection of the breasts and normal inspection of the axillae Breast/axilla palpation: normal palpation of the breasts and normal palpation of the axillae Resp Effort & Inspection: normal respiratory effort GI Inspection: Yes normal to inspection, No Abdominal wall edema and No distended Palpation (GI): Soft to palpation and nontender Other: Limits vagina is pink and moist healthy appearing cervix is multiparous pink smooth healthy appearing with midcycle type clear mucus. Uterus is small anteverted mobile nontender. Fair tone with Kegel adnexa nontender. General: Yes bladder normal to palpation External Female Exam: normal external appearance and normal appearance of the urethra Speculum Exam - Vagina: normal appearance of the vagina, normal palpation and normal vaginal discharge Speculum Exam - Cervix: normal appearance of the cervix, normal palpation and nontender Bimanual exam- vagina & uterus: normal bimanual exam, normal palpation, uterine size normal, bladder normal to palpation, consistency normal, normal palpation, uterine mobility normal, uterine shape normal, No Cervical tenderness present, non-tender and no cervical motion tenderness Bimanual Exam- Adnexa, other: normal adnexae, no masses, normal and No adnexal tenderness Neuro General: patient oriented x3 Results Reviewed Results Reviewed: Name: Sandra Ibarra Age/Sex: 31/F Attending: Ciarra Anguiano CNM : 1990 Submitted by: Ciarra Anguiano CNM Copies to: MR #: [id number] Status: DEP REF Collected: 08/08/21 Location: .LAB Received: 08/09/21 Interpretation Satisfactory for evaluation. Negative for intraepithelial lesion or malignancy. HPV mRNA E6/E7: NOT DETECTED This assay detects E6/E7 viral messenger RNA (mRNA) from 14 high-risk HPV types (16, 18, 31, 33, 35, 39, 45, 51, 52, 56, 58, 59, 66, 68) HPV testing performed by [facility], [place], [place]. See reference laboratory pion of the EMR for entire report. Clinical Information LMP:06/2021 Previous PAP test:Unknown date,WNL Material Received ThinPrep-Cervical Electronically Signed By: Lisandra R Botto, CT (ASC) 08/24/21 0942 The Pap Test is a screening procedure with the inherent possibility of both false negative and false positive results. Results should be interpreted in the context of historic and current clinical findings. Reliability of the Pap Test is enhanced by performing the test on a regular repetitive basis. Patient: Sandra Ibarra Age/Sex: 31/F MR#: [id number] Page 1 of 1 Patient: Sandra Ibarra MR#: [id number] : 1990 Acct:[id number] Age/Sex: 31 / F ADM Date: 09/19/21 Loc: .US Attending Dr: Ciarra Anguiano CNM Ordering Physician: Ciarra Anguiano CNM Date of Service: 09/19/21 Procedure(s): US pelvic and transvaginal Accession Number(s): [id number] cc: Ciarra Anguiano CNM~ EXAMINATION: US PELVIS CLINICAL INFORMATION: Pelvic and perineal pain, last menstrual period 09/09/2021. COMPARISON: None. TECHNIQUE: Ultrasound of the pelvis is performed using both transabdominal and transvaginal transducers along with Doppler. Transvaginal imaging is performed due to inadequate visualization transabdominally. FINDINGS: The uterus is heterogeneous and measures 10.0 x 4.6 x 5.8 cm. No discrete fibroid identified. Endometrial thickness is 0.7 cm. No significant free fluid. Left ovary is unremarkable and measures 3.0 x 2.3 x 2.8 cm, volume 10.1 mL. Right ovary measures 4.7 x 1.8 x 3.2 cm, volume 14.2 mL. 1.6 x 1.5 x 1.6 cm likely simple right ovarian cyst is characteristic of a dominant follicle. US/US pelvic and transvaginal IMPRESSION: Endometrium is echogenic with thickness of 0.7 cm. Heterogeneous uterus. No discrete fibroids. Right ovarian 1.6 cm cyst is characteristic of a dominant follicle. 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 Code(s): Z12.4 - Encounter for screening for malignant neoplasm of cervix Category: Medical (3) Screen for sexually transmitted diseases: Code(s): Z11.3 - Encounter for screening for infections with a predominantly sexual mode of transmission Category: Medical (4) Dysmenorrhea, unspecified: Code(s): N94.6 - Dysmenorrhea, unspecified Category: Medical (5) Menorrhagia with regular cycle: Code(s): N92.0 - Excessive and frequent menstruation with regular cycle Category: Medical Plan -----Discussed in this visit the following: healthy balanced diet, regular and consistent exercise, getting recommended health screens, doing the best she can for her particular health concerns, kegel exercises, pap smear screening and followup recommendations, mammography screening and SBE, normal changes in cycles in her life stage--- . Reviewed her history in as much detail as I could elicit. It seems that her worst pain is at the start of her period and also then at the end of it. They are heavy and very clotting and I asked her if she wanted to do something to make that better other than take out her uterus which would not be recommended when there is no pathology evident. I suggested we start with another u ltrasound even though she had 1 done a couple of years ago that was within normal limits. 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 Discussed that there are other ramifications to doing surgery if it is not necessary. Also reviewed that other options could include doing nothing at all and living with her periods, or taking ibuprofen or similar med, on a regularly scheduled basis to deal with the pain,( which she is not really interested in doing anymore of). I will order a CBC to check for anemia and a TSH. She is interested in getting testing for STIs so I have ordered those as well we will have a tele visit after the ultrasound. Orders: Orders Bacterial Vaginosis Panel Today N89.8 - Other specified noninflammatory disorders of vagina Complete Blood Count no Diff Today N92.0 - Excessive and frequent menstruation with regular cycle, N94.6 - Dysmenorrhea, unspecified, Z01.419 - Encounter for gynecological examination (general) (routine) without abnormal findings, Z11.3 - Encounter for screening for infections with a predominantly sexual mode of transmission, Z12.4 - Encounter for screening for malignant neoplasm of cervix Thyroid Stimulating Hormone Today N92.0 - Excessive and frequent menstruation with regular cycle, N94.6 - Dysmenorrhea, unspecified, Z01.419 - Encounter for gynecological examination (general) (routine) without abnormal findings, Z11.3 - Encounter for screening for infections with a predominantly sexual mode of transmission, Z12.4 - Encounter for screening for malignant neoplasm of cervix Hepatitis B Surface Antigen Today N92.0 - Excessive and frequent menstruation with regular cycle, N94.6 - Dysmenorrhea, unspecified, Z01.419 - Encounter for gynecological examination (general) (routine) without abnormal findings, Z11.3 - Encounter for screening for infections with a predominantly sexual mode of transmission, Z12.4 - Encounter for screening for malignant neoplasm of cervix Hepatitis C Antibody Today N92.0 - Excessive and frequent menstruation with regular cycle, N94.6 - Dysmenorrhea, unspecified, Z01.419 - Encounter for gynecological examination (general) (routine) without abnormal findings, Z11.3 - Encounter for screening for infections with a predominantly sexual mode of transmission, Z12.4 - Encounter for screening for malignant neoplasm of cervix HIV Ab/Ag Today N92.0 - Excessive and frequent menstruation with regular cycle, N94.6 - Dysmenorrhea, unspecified, Z01.419 - Encounter for gynecological examination (general) (routine) without abnormal findings, Z11.3 - Encounter for screening for infections with a predominantly sexual mode of transmission, Z12.4 - Encounter for screening for malignant neoplasm of cervix Syphilis Screen Today N92.0 - Excessive and frequent menstruation with regular cycle, N94.6 - Dysmenorrhea, unspecified, Z01.419 - Encounter for gynecological examination (general) (routine) without abnormal findings, Z11.3 - Encounter for screening for infections with a predominantly sexual mode of transmission, Z12.4 - Encounter for screening for malignant neoplasm of cervix CT NG by PCR Today N89.8 - Other specified noninflammatory disorders of vagina, Z20.2 - Contact with and (suspected) exposure to infections with a predominantly sexual mode of transmission Coding Level of Care Code Est Pt Prev Care 18-39y(95250) Diagnoses Well woman exam with routine gynecological exam Z01.419 Cervical cancer screening Z12.4 Screen for sexually transmitted diseases Z11.3 Dysmenorrhea, unspecified N94.6 Menorrhagia with regular cycle N92.0
[2023-09-27 11:10] VITALS: BP 118/63; BMI 26.0
== END 2023-09-27 11:44 | disposition home or self-care (01) ==
PROVIDERS: PCP Internal Medicine; Visit Provider Advanced Practice Midwife
DX: Z01.419 Encounter for gynecological examination (general) (routine) without abnormal findings (principal); Z12.4 Encounter for screening for malignant neoplasm of cervix; Z11.3 Encounter for screening for infections with a predominantly sexual mode of transmission; N94.6 Dysmenorrhea, unspecified; N92.0 Excessive and frequent menstruation with regular cycle
CPT/HCPCS: 99395

== ENCOUNTER 2023-10-09 12:41 | Outpatient (REF) | payer OTHER, SELFPAY ==
--- NOTE | ~2023-10-09 | US_ITS ---
EXAMINATION: US PELVIS CLINICAL INFORMATION: Excessive and frequent menses with regular cycle; last menstrual period was on 09/08/2023. COMPARISON: Pelvic ultrasound dated 09/19/2021. TECHNIQUE: Ultrasound of the pelvis is performed using both transabdominal and transvaginal transducers along with Doppler. Transvaginal imaging is performed due to inadequate visualization transabdominally. FINDINGS: Uterus: The uterus is anteverted and anteflexed. The uterus measures 9.6 x 4.7 x 5.6 cm. Nabothian cysts are seen within the cervix. The double wall endometrial thickness is 1.3 mm. There is trace fluid within the endometrial canal. The uterus is smooth in contour and has normal myometrial echogenicity. No visible fibroid. Adnexa: Both ovaries are visualized. There is normal color flow to the adnexa. There is no ovarian torsion. There is no pelvic ascites or fluid collection. Right ovary measures 3.0 x 2.0 x 1.9 cm, volume 6.1 mm. The right ovary contains a 1.5 cm dominant exophytic, simple follicle, which requires no imaging follow-up. Left ovary measures 3.0 x 2.2 x 2.8 cm, volume 9.8 mL. US/US pelvic and transvaginal IMPRESSION: 1. Nabothian cysts are seen within the cervix. 2. There is trace endometrial free fluid. Electronically signed by: Aaron Pang MD 10/27/2023 10:01 AM EDT Workstation: [id number]
== END 2023-10-09 12:42 | disposition home or self-care (01) ==
LOC: HO.US 12:41
PROVIDERS: PCP Internal Medicine; Visit Provider Advanced Practice Midwife
DX: N92.0 Excessive and frequent menstruation with regular cycle (principal)
CPT/HCPCS: 76830; 76856

== ENCOUNTER 2023-12-12 09:58 | Outpatient (AMB) | payer OTHER, SELFPAY ==
--- NOTE | 2023-12-12 10:01 | A.OFFPC_ITS ---
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 Accompanied by: Self / Same As Patient Allergies No Known Allergies [No Known Allergies*] Allergy (Verified 12/12/23 10:14) Medication List - Last Reconciled 12/12/23 by Samina Bone MD amitriptyline 50 mg (2 x 25 mg) PO BEDTIME 30 days bisacodyl (Dulcolax (bisacodyl)) 10 mg (2 x 5 mg) PO BEDTIME famotidine (Pepcid) 20 mg PO BEDTIME hydrocortisone 2.5% (Proctosol HC) 1 appl DC BID-QID PRN hydroxyzine pamoate 50 mg PO BID PRN lansoprazole 30 mg PO DAILY linaclotide (Linzess) 290 mcg PO QAM magnesium oxide 400 mg PO BEDTIME 30 days polyethylene glycol 3350 (Miralax) 17 grams PO DAILY riboflavin (vitamin B2) 400 mg PO DAILY 30 days sertraline 25 mg PO DAILY sumatriptan succinate 50 - 100 mg orally at onset of headache, may repeat in 2 hrs PRN; max 2 tabs per day or 4 tabs/week (may take with Ibuprofen) 30 days triamcinolone acetonide 0.5% 1 appl topical DAILY 2 weeks Tobacco use date assessed: 12/12/23 Dental Screening Dental Screen Date: 12/12/23 Did you have a dental visit in the last 12 months?: No Did you have a dental problem in the last 6 months where you did not have access to dental care?: No Was dental information given to patient?: Patient has dentist HPI HPI Comments History of Present Illness Details This is a 33-year-old female with mild recurrent major depression that comes for her physical exam. Pap smear done 2021. Complains of occasional chest pain in the left side of the chest that happens at rest and an EKG will be ordered. Also complains of right lower quadrant pain and had an ultrasound of the pelvis and would like a referral to OBGYN. [facility] Medical History (Updated 12/12/23 @ 12:05 by Samina Bone MD) Duodenitis Hiatal hernia Chronic GERD Right knee pain Left knee pain SAMRA (generalized anxiety disorder) Migraines Mild recurrent major depression Chest pain Surgical History Hx of colonoscopy Hx of appendectomy History of esophagogastroduodenoscopy (EGD) Hx of cholecystectomy Hx of tubal ligation Family History Mother Diabetes Arthritis Father Diabetes Arthritis Sister Cancer Colon cancer, Onset Age: 35 Paternal Uncle Cancer Social History Housing: House Alcohol intake: never Patient Tobacco Use Status: Never used Tobacco e-Cigarette/Vaping Use: Never Used Second Hand Smoke Exposure: No service: No Current occupational status: employed 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 1. Little interest or pleasure in doing things: several days 2. Feeling down, depressed, or hopeless: not at all 3. Trouble falling or staying asleep, or sleeping too much: nearly every day 4. Feeling tired or having little energy: several days 5. Poor appetite or overeating: several days 6. Feeling bad about yourself - or that you are a failure or have let yourself or your family down: not at all 7. Trouble concentrating on things, such as reading the newspaper or watching television: not at all 8. Moving or speaking so slowly that other people could have noticed. Or the opposite - being so fidgety or restless that you have been moving around a lot more than usual: not at all 9. Thoughts that you would be better off or of hurting yourself in some way: not at all Total score: 6 Depression Screening Interpretation: Positive Depression Screening Follow-up: Existing condition, In treatment, Community Mental Health Worker F/U and Follow- up Visit Requested Depression Screening Done: Yes 38203 - PHQ-9 Billing: Yes Source: Developed by Drs. Cornelio Hale, Glory Cunningham, Humberto Young and colleagues, with an educational enma from [employer]. Thrive Questionnaire Date Thrive assessed: 12/12/23 I am a: Patient What is your living situation today?: I have a steady place to live Within the past 12 months, did the food you bought not last and you didn't have the money to get more?: Sometimes True Within the past 12 months, did you worry whether your food would run out before you got money to buy more?: Sometimes True Do you have trouble paying for medicines?: Yes Do you have trouble getting transportation to medical appointments?: Yes Do you have trouble paying your heating and electricity bill?: No Do you have trouble taking care of your child, family member or friend?: No Do you have trouble with day-to-day activities such as bathing, preparing meals, shopping, managing finances, etc.?: No Are you currently unemployed and looking for a job?: No Are you interested in more education?: No Please select the resources that you would like help with: Food and Paying for medicine Currently or been in a relationship where the following occur: No concerns reported THRIVE Score: 3 AUDIT C Alcohol Use Questionnaire (AUDIT-C) 1. How often do you have a drink containing alcohol?: Never Total Score: 0 Score Reviewed/Action Taken: No SAMRA-7 AMB Questionnaire SAMRA-7 Date SAMRA - 7 assessed: 12/12/23 Feeling nervous, anxious, or on edge: 0 = Not at all Not being able to stop or control worryin = Not at all Worrying too much about different things: 0 = Not at all Trouble relaxin = Not at all Being so restless that it is hard to sit still: 0 = Not at all Becoming easily annoyed or irritable: 0 = Not at all Feeling afraid as if something awful might happen: 0 = Not at all Total SAMRA-7 score (0-4 normal; 5-9 mild; 10-14 moderate; 15-21 severe): 0 Source: Developed by Drs. Cornelio Hale, Glory Cunningham, Humberto Young and colleagues, with an educational enma from [employer]. SAMRA-7 Assessment Billing SAMRA-7 Assessment Tool: SAMRA-7 Assessment 09564 Review of Systems Const All systems reviewed & are unremarkable except as noted in HPI and below Card Reports chest pain at rest, Denies chest pain with activity, Denies edema, Denies irregular heart rhythm, Denies claudication, Denies dyspnea, Denies dyspnea on exertion, Denies orthopnea, Denies paroxysmal nocturnal dyspnea and Denies slow heart rate Resp Denies cough, Denies dyspnea and Denies dyspnea on exertion GI Reports abdominal pain Physical exam (Primary Care) Vital Signs: Last Vital Signs BP 120/76 12/12/23 10:03 BMI result Body Mass Index 26.4 Tobacco/Smoking Status: Tobacco use Status Tobacco use date assessed 12/12/23 12/12/23 10:10 Patient Tobacco Use Status Never used Tobacco 12/12/23 10:08 e-Cigarette/Vaping Use Never Used 12/12/23 10:08 PHQ-9: PHQ-9 Score PHQ-9: Total score 6 12/12/23 10:25 Depression Screening Interpretation: Positive Depression Screening Follow-up: Existing condition, In treatment, Community Mental Health Worker F/U and Follow- up Visit Requested Thrive Assessment: Date of Thrive Assessment Date Thrive assessed 12/12/23 12/12/23 10:08 Currently or been in a relationship where the following occur: No concerns reported [facility] Head: Yes normal to inspection, Yes normocephalic and Yes atraumatic Ears: external ears normal Eyes General: appearance normal, both eyes and all related structures Eyelids: Yes eyelids normal Conjunctivae: conjunctivae normal Neck Neck: Yes normal visual inspection and Yes supple Resp Effort & Inspection: normal respiratory effort Auscultation: clear to auscultation bilaterally Cardio Jugular venous distension: no JVD Rate: regular rate Rhythm: regular rhythm Heart sounds: S1 normal heart sound present and S2 normal heart sound present GI Inspection: Yes normal to inspection Palpation (GI): Soft to palpation and Tenderness to palpation present (GI) in the RLQ Auscultation: normal bowel sounds Skin General skin exam: no rashes or lesions noted Neuro General: no focal motor deficits Extrem General: Yes full ROM Psych Appearance: grossly normal Office Procedures Flu Questionnaire Does the patient have a severe egg allergy?: No Does the patient have severe life threatening allergies?: No Does the patient have a fever or illness today?: No Has the patient ever had Guillain-[place] Syndrome?: No Has the patient ever had any past reaction to a flu shot?: No Immunizations Fluarix Triv [id number] (PF) 45 mcg (15 mcg x 3)/0.5 mL IM syringe Performing Provider: Samina Bone MD [facility] Administered by: CLINTON Priest on 12/12/23 10:23 Dose Route Admin Location Dispensed Lot Number Expiration Date NDC Rnp 0.5 mL IM Left Deltoid 0.5 mL [id number] 08/24/24 [id number] [place] IT VIS Given Date VIS Provided VIS Publication Date 12/12/23 Single Vaccine 20 Eligibility Eligibility Date Funding Source Not [facility] Eligible 12/12/23 Private Coding Level of Care Code Est Pt Level 3 (97212) Est Pt Prev Care 18-39y(79280) Diagnoses Physical exam Z00.00 Pelvic pain in female R10.2 Mild recurrent major depression F33.0 Precordial pain R07.2 Chest pain type: precordial pain Additional Codes SAMRA-7 Assessment Billing - SAMRA-7 Assessment Tool: SAMRA-7 Assessment 85790 ([id number]) Time Spent (min) 35 Assessment & Plan Assessment & Plan (1) Physical exam: Code(s): Z00.00 - Encounter for general adult medical examination without abnormal findings Category: Medical Plan: Repeat in a year. (2) Pelvic pain in female: Code(s): R10.2 - Pelvic and perineal pain Category: Medical Plan: Referred to OBGYN (3) Mild recurrent major depression: Code(s): F33.0 - Major depressive disorder, recurrent, mild Category: Medical Plan: Continue amitriptyline. (4) Chest pain: Code(s): R07.9 - Chest pain, unspecified Category: Medical Qualifiers: Chest pain type: precordial pain Qualified Code(s): R07.2 - Precordial pain Plan: EKG ordered. Orders: Orders Influenza [id number] Immunization Today Z23 - Encounter for immunization ECG 12 lead EKG Today R07.9 - Chest pain, unspecified Referrals [facility]PER[facility] D[facility]PART[facility] Referral R10.2 - Pelvic and perineal pain
[2023-12-12 10:03] VITALS: BP 120/76; BMI 26.4
== END 2023-12-12 10:30 | disposition home or self-care (01) ==
PROVIDERS: PCP Internal Medicine; Visit Provider Internal Medicine
DX: Z00.00 Encounter for general adult medical examination without abnormal findings (principal); R10.2 Pelvic and perineal pain; F33.0 Major depressive disorder, recurrent, mild; R07.2 Precordial pain

== ENCOUNTER → 2023-12-12 09:58 | Outpatient (BNVA) | payer OTHER, SELFPAY | PROVIDERS: PCP Internal Medicine; Visit Provider Internal Medicine | DX: Z00.01 Encounter for general adult medical examination with abnormal findings (principal); R10.2 Pelvic and perineal pain; R07.2 Precordial pain; F33.0 Major depressive disorder, recurrent, mild; Z79.899 Other long term (current) drug therapy; Z23 Encounter for immunization | CPT/HCPCS: 90471; 90656; 96127; 99395 ==

== ENCOUNTER 2023-12-18 12:55 | Outpatient (AMB) | payer OTHER, SELFPAY ==
[2023-12-18 13:33] VITALS: PULSE 72; BMI 26.4
--- NOTE | 2023-12-18 13:33 | A.OFFVIS_ITS ---
Vital Signs 12/18/23 13:33 Height 5 ft 3 in Weight 149 lb BMI 26.4 Pulse 72 Pulse Source Palpation Intake Visit Reasons: Follow up Intake Note: Patient presents for follow up.patient still having issues with headaches. Allergies No Known Allergies [No Known Allergies*] Allergy (Verified 12/18/23 13:38) Medication List - Last Reconciled 12/18/23 by NGUYEN Kilgore amitriptyline 50 mg (2 x 25 mg) PO BEDTIME 30 days bisacodyl (Dulcolax (bisacodyl)) 10 mg (2 x 5 mg) PO BEDTIME famotidine (Pepcid) 20 mg PO BEDTIME hydrocortisone 2.5% (Proctosol HC) 1 appl NM BID-QID PRN hydroxyzine pamoate 50 mg PO BID PRN lansoprazole 30 mg PO DAILY linaclotide (Linzess) 290 mcg PO QAM magnesium oxide 400 mg PO BEDTIME 30 days polyethylene glycol 3350 (Miralax) 17 grams PO DAILY riboflavin (vitamin B2) 400 mg PO DAILY 30 days sertraline 25 mg PO DAILY sumatriptan succinate 50 - 100 mg orally at onset of headache, may repeat in 2 hrs PRN; max 2 tabs per day or 4 tabs/week (may take with Ibuprofen) 30 days triamcinolone acetonide 0.5% 1 appl topical DAILY 2 weeks HPI Comments Details: 33-yr-old female presents for f/u visit of migraine. Pt denies any significant interval medical changes. However, she has been referred to SENIOR FIELD SERVICE ENGINEER for eval of RLQ discomfort- reports remote h/o appendectomy. Pt continues to have migraine now 2-3 days per week. Sometimes she has to leave work- works a s a [employer]. The headache can now also occur in the back of her nand neck. She reports that on Amitriptyline at 50mg - she had slightly less intense right sided headache pain, but still had 2-3 migraine days per week. Also has had constipation. Tolerating B2 and Mag well. States Sumatriptan 100mg helps and is tolerated well. Baseline headache characteristics: Severe, Usually the right frontal/temporal pulsating strong pain. A/w Photophobia, phonophobia, osmophobia, allodynia, nausea, vomiting, not much dizziness, brain fog, fatigue, right eye region numbness and skin darkening (like a raccoon eye). In July, started also having chest pains a/w LUE numbness with migraine. Postdrome: She will feel tired Triggers: Stress, not sleeping, menstrual cycle. [facility] Medical History Duodenitis Hiatal hernia Chronic GERD Right knee pain Left knee pain SAMRA (generalized anxiety disorder) Migraines Mild recurrent major depression Chest pain Surgical History Hx of colonoscopy Hx of appendectomy History of esophagogastroduodenoscopy (EGD) Hx of cholecystectomy Hx of tubal ligation Family History Mother Diabetes Arthritis Father Diabetes Arthritis Sister Cancer Colon cancer, Onset Age: 35 Paternal Uncle Cancer Social History Housing: House Alcohol intake: never Patient Tobacco Use Status: Never used Tobacco e-Cigarette/Vaping Use: Never Used Second Hand Smoke Exposure: No service: No Current occupational status: employed 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 Current occupational exposures/hazards: No Cognitive needs: No Hearing needs: No Vision needs: Yes Female Reproductive History Menstrual Age of Menarche: 12 Physical Exam Vital Signs: Last Vital Signs Pulse 72 12/18/23 13:33 BMI result Body Mass Index 26.4 Const General: cooperative and no acute distress Orientation/consciousness: patient oriented x3 Resp Effort & Inspection: normal respiratory effort and able to speak in complete sentences Cardio Rate: regular rate Rhythm: regular rhythm Neuro General: patient oriented x3 Cranial nerves: Yes CN's II-XII intact bilaterally Cognition (Neuro): normal cognition Psych Appearance: grossly normal Mental Status: mental status grossly normal Speech and movement: Normal speech and movement present Affect: normal affect Attitude: cooperative Assessment & Plan Assessment & Plan (1) Migraines: Code(s): G43.909 - Migraine, unspecified, not intractable, without status migrainosus Category: Medical (2) Left upper extremity numbness: Code(s): R20.0 - Anesthesia of skin Category: Medical Plan Brain MRI w/wo- Normal. Minimal nonspecific white matter changes. 06/27/22, LUE EMG/NCS: normal. Skinny continue jesus manuel monitor response of headache tx on LUE numbness a/w migraine. Future considerations- c-spine imaging. ? For overall headache management: Track headaches. ? For acute headache treatment: Continue Sumatriptan to 50-100mg prn. Previous acute migraine medication trials: Fioricet ineffective Acute migraine medication contraindications: None at this time ? For headache prevention medication: Continue Riboflavin 400mg qam Continue Magnesium 400mg qhs Stop Amitriptyline 50mg qhs- not fully effective and causing constipation. Start Propranolol ER 60mg po qhs. Potential side effects include but are not limited to fatigue, lightheadedness, low blood pressure, low heart rate, asthma/respiratory disease exacerbation, weight gain, hair loss, sexual dysfunction. Previous migraine prevention medication trials: Amitriptyline 50mg qhs- not fully effective and causing constipation. Migraine prevention medication contraindications: None at this time. ? Pt to follow-up in 6 months or sooner prn. Medications: New propranolol ER 60 mg PO BEDTIME 30 caps 6RF 30 days naproxen take w/ food 500 mg PO BID PRN 60 tabs 3RF migraine headache 30 days Refilled magnesium oxide may hold for loose stools 400 mg PO BEDTIME 30 tabs 6RF 30 days sumatriptan succinate 50 - 100 mg orally at onset of headache, may repeat in 2 hrs PRN; max 2 tabs per day or 4 tabs/week (may take with Ibuprofen) 12 tabs 6RF migraine headache 30 days riboflavin (vitamin B2) 400 mg PO DAILY 30 tabs 6RF 30 days Discontinued amitriptyline Discontinued Reason: Doctor's Order 50 mg (2 x 25 mg) PO BEDTIME 30 days 60 tabs 6RF Coding Level of Care Code Est Pt Level 4 (07282) Diagnoses Migraines G43.909 Left upper extremity numbness R20.0
== END 2023-12-18 14:14 | disposition home or self-care (01) ==
PROVIDERS: PCP Internal Medicine; Visit Provider Nurse Practitioner Family
DX: G43.909 Migraine, unspecified, not intractable, without status migrainosus (principal); R20.0 Anesthesia of skin
CPT/HCPCS: 99214

== ENCOUNTER → 2023-12-18 12:55 | Outpatient (BNVA) | payer OTHER, SELFPAY | PROVIDERS: PCP Internal Medicine; Visit Provider Nurse Practitioner Family | DX: G43.909 Migraine, unspecified, not intractable, without status migrainosus (principal); R20.0 Anesthesia of skin | CPT/HCPCS: 99212 ==

== ENCOUNTER 2023-12-23 13:15 | Outpatient (AMB) | payer OTHER, SELFPAY ==
--- NOTE | 2023-12-23 13:19 | A.OFFVIS_ITS ---
Vital Signs 12/23/23 13:26 Height 5 ft 3 in BP 122/70 Intake Visit Reasons: ultra sound follow up Instrument Assembler Required: No Information Interpreted: clinical only Vacation Planner: Vacation Planner Present Allergies No Known Allergies [No Known Allergies*] Allergy (Verified 12/23/23 13:26) Medication List - Last Reconciled 12/23/23 by Ciarra Anguiano CNM bisacodyl (Dulcolax (bisacodyl)) 10 mg (2 x 5 mg) PO BEDTIME famotidine (Pepcid) 20 mg PO BEDTIME hydrocortisone 2.5% (Proctosol HC) 1 appl WI BID-QID PRN hydroxyzine pamoate 50 mg PO BID PRN lansoprazole 30 mg PO DAILY linaclotide (Linzess) 290 mcg PO QAM magnesium oxide 400 mg PO BEDTIME 30 days naproxen 500 mg PO BID PRN 30 days polyethylene glycol 3350 (Miralax) 17 grams PO DAILY propranolol ER 60 mg PO BEDTIME 30 days riboflavin (vitamin B2) 400 mg PO DAILY 30 days sertraline 25 mg PO DAILY sumatriptan succinate 50 - 100 mg orally at onset of headache, may repeat in 2 hrs PRN; max 2 tabs per day or 4 tabs/week (may take with Ibuprofen) 30 days triamcinolone acetonide 0.5% 1 appl topical DAILY 2 weeks Is last menstrual period known: Yes Last menstrual period: 12/12/23 HPI HPI ultra sound follow up: Details: Patient is here for her ultrasound follow-up she says she has a problem with pelvic pain all the time always there it does not change no matter what it does not change with her cycle it does not change with her. It does not change with her ovulation. She had inquired before because of heavy crampy periods about whether not her uterus could just be taken out because she wanted it all taken out. We discussed that this was not usually recommended and if somebody was having heavy uncomfortable periods that a more practical way to go would be to consider a Mirena IU S.. Meanwhile we reviewed the ultrasound today which is completely negative though she said her primary care provider told her that she had cysts I again review the ultrasound with her and explained that nabothian cysts are completely completely normal. I reviewed the normal menstrual cycle with I reviewed that if she were having any discomfort that changed in any way shape or form with her cycle that might be an indication of her problem being gynecological but given that the pain is the same every single day it is extremely unlikely it has in his into do reproductive organs. In addition if she were thinking about endometriosis that also would change with her cycle. Then she inquired about her tubal ligation surgery and she wanted to know exactly what was done and whether not it could be reversed. She said that she had the surgery at [facility].. When I look to historical data and found that her visits in the past were to the emergency room did not include surgical or delivery here she changed to say that she thinks she delivered at [facility] but she got all of her care at an office from [place] at an office on [facility] in [place]. I reviewed with her that in over 35 years that are there has never been of obstetrical or gynecological practice on [facility] that had any association with [facility]. And she must be somewhere else and then she had another that she thinks she delivered at [facility]. I shared with her also that [facility] as it is a [facility] does not do tubal ligations so she must have had her surgery at [facility] as it is the only other hospital in the area. I reviewed other possible causes of her pain including gastrointestinal and she said she has an appointment but it is not coming up for another year so she is going to explore the her primary and in addition I explored whether not it be urinary based and she said that she had discussed that with her primary because she had been only discuss 1 problem at a visit when she sees her and it is a 5 minute visit and then it is over. I explored her disprove stories of wanting to have all her pelvic ordered removed at 1 visit and then enquiring about tubal ligation reversal at the next and suggested that she may want to get very clear about what it is that she wants. She said that she does not want to have a 2 reversal have another baby now because she is not in a good situation now, but she thinks that some day she would want to. I suggested that when she decides more clearly what she wants she should seek an appointment at [facility] and investigate that option there, as that must be where she had her tubal ligation because it was not at [place] or [facility] either. For her other discomforts, that she was not exhibiting today throughout our conversation, I recommend she follow-up with her primary or GI. PFS Medical History (Updated 12/23/23 @ 14:46 by Ciarra Anguiano CNM) Duodenitis Hiatal hernia Chronic GERD Right knee pain Left knee pain SAMRA (generalized anxiety disorder) Migraines Mild recurrent major depression Chest pain Surgical History (Updated 12/23/23 @ 14:46 by Ciarra Anguiano CNM) Hx of colonoscopy Hx of appendectomy History of esophagogastroduodenoscopy (EGD) Hx of cholecystectomy Hx of tubal ligation Family History Mother Diabetes Arthritis Father Diabetes Arthritis Sister Cancer Colon cancer, Onset Age: 35 Paternal Uncle Cancer Social History Housing: House Alcohol intake: never Patient Tobacco Use Status: Never used Tobacco e-Cigarette/Vaping Use: Never Used Second Hand Smoke Exposure: No service: No Current occupational status: employed 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 Current occupational exposures/hazards: No Cognitive needs: No Hearing needs: No Vision needs: Yes Female Reproductive History Menstrual Age of Menarche: 12 Duration of menses: 3-5 days Date of last menstrual period: 12/12/23 control method: permanent sterilization Total pregnancies: 3 Date of last pap smear: 08/09/21 (negative) Physical Exam Vital Signs: Last Vital Signs BP 122/70 12/23/23 13:26 Results Reviewed Results Reviewed: Patient: Sandra Ibarra MR#: [id number] : 1990 Acct:[id number] Age/Sex: 33 / F ADM Date: 10/09/23 Loc: HO.US Attending Dr: Ciarra Anguiano CNM Ordering Physician: Ciarra Anguiano CNM Date of Service: 10/09/23 Procedure(s): US pelvic and transvaginal Accession Number(s): [id number] cc: Ciarra Anguiano CNM; Samina Osullivan MD~ EXAMINATION: US PELVIS CLINICAL INFORMATION: Excessive and frequent menses with regular cycle; last menstrual period was on 09/08/2023. COMPARISON: Pelvic ultrasound dated 09/19/2021. TECHNIQUE: Ultrasound of the pelvis is performed using both transabdominal and transvaginal transducers along with Doppler. Transvaginal imaging is performed due to inadequate visualization transabdominally. FINDINGS: Uterus: The uterus is anteverted and anteflexed. The uterus measures 9.6 x 4.7 x 5.6 cm. Nabothian cysts are seen within the cervix. The double wall endometrial thickness is 1.3 mm. There is trace fluid within the endometrial canal. The uterus is smooth in contour and has normal myometrial echogenicity. No visible fibroid. Adnexa: Both ovaries are visualized. There is normal color flow to the adnexa. There is no ovarian torsion. There is no pelvic ascites or fluid collection. Right ovary measures 3.0 x 2.0 x 1.9 cm, volume 6.1 mm. The right ovary contains a 1.5 cm dominant exophytic, simple follicle, which requires no imaging follow-up. Left ovary measures 3.0 x 2.2 x 2.8 cm, volume 9.8 mL. US/US pelvic and transvaginal IMPRESSION: 1. Nabothian cysts are seen within the cervix. 2. There is trace endometrial free fluid. Electronically signed by: Aaron Pang MD 10/27/2023 10:01 AM EDT Dictated By: Aaron Pang MD Signed By: <Electronically signed by Aaron Pang MD in OV> 10/27/23 1001 DD/ 1242 TD/TT: 10/09/23 1322 Transcriptionis Assessment & Plan Assessment & Plan (1) Pelvic pain in female: Comment: Not in any way cyclic or change in with menstrual cycle. Code(s): R10.2 - Pelvic and perineal pain Category: Medical (2) Menorrhagia with regular cycle: Comment: Not interested in Mirena at this time. Code(s): N92.0 - Excessive and frequent menstruation with regular cycle Category: Medical Plan Patient is here for her ultrasound follow-up she says she has a problem with pelvic pain all the time always there it does not change no matter what it does not change with her cycle it does not change with her. It does not change with her ovulation. She had inquired before because of heavy crampy periods about whether not her uterus could just be taken out because she wanted it all taken out. We discussed that this was not usually recommended and if somebody was having heavy uncomfortable periods that a more practical way to go would be to consider a Mirena IU S.. Meanwhile we reviewed the ultrasound today which is completely negative though she said her primary care provider told her that she had cysts I again review the ultrasound with her and explained that nabothian cysts are completely completely normal. I reviewed the normal menstrual cycle with I reviewed that if she were having any discomfort that changed in any way shape or form with her cycle that might be an indication of her problem being gynecological but given that the pain is the same every single day it is extremely unlikely it has in his into do reproductive organs. In addition if she were thinking about endome triosis that also would change with her cycle. Then she inquired about her tubal ligation surgery and she wanted to know exactly what was done and whether not it could be reversed. She said that she had the surgery at [facility].. When I look to historical data and found that her visits in the past were to the emergency room did not include surgical or delivery here she changed to say that she thinks she delivered at [facility] but she got all of her care at an office from [place] at an office on [facility] in [place]. I reviewed with her that in over 35 years that are there has never been of obstetrical or gynecological practice on [facility] that had any association with [facility]. And she must be somewhere else and then she had another that she thinks she delivered at [facility]. I shared with her also that [facility] as it is a [facility] does not do tubal ligations so she must have had her surgery at [facility] as it is the only other hospital in the area. I reviewed other possible causes of her pain including gastrointestinal and she said she has an appointment but it is not coming up for another year so she is going to explore the her primary and in addition I explored whether not it be urinary based and she said that she had discussed that with her primary because she had been only discuss 1 problem at a visit when she sees her and it is a 5 minute visit and then it is over. I explored her disprove stories of wanting to have all her pelvic ordered removed at 1 visit and then enquiring about tubal ligation reversal at the next and suggested that she may want to get very clear about what it is that she wants. She said that she does not want to have a 2 reversal have another baby now because she is not in a good situation now, but she thinks that some day she would want to. I suggested that when she decides more clearly what she wants she should seek an appointment at [facility] and investigate that option there, as that must be where she had her tubal ligation because it was not at [place] or [facility] either. For her other discomforts, that she was not exhibiting today throughout our conversation, I recommend she follow-up with her primary or GI. Coding Level of Care Code Est Pt Level 3 (78153) Diagnoses Pelvic pain in female R10.2 Menorrhagia with regular cycle N92.0
[2023-12-23 13:26] VITALS: BP 122/70
== END 2023-12-23 14:43 | disposition home or self-care (01) ==
LOC: HO.HWSM 13:16
PROVIDERS: PCP Internal Medicine; Visit Provider Advanced Practice Midwife
DX: R10.2 Pelvic and perineal pain (principal); N92.0 Excessive and frequent menstruation with regular cycle
CPT/HCPCS: 99213

== ENCOUNTER → 2023-12-23 13:15 | Outpatient (BNVA) | payer OTHER, SELFPAY | PROVIDERS: PCP Internal Medicine; Visit Provider Advanced Practice Midwife | DX: N92.0 Excessive and frequent menstruation with regular cycle (principal); R10.2 Pelvic and perineal pain | CPT/HCPCS: 99212 ==

== ENCOUNTER 2024-06-29 08:40 | Outpatient (REF) | payer OTHER, SELFPAY ==
--- NOTE | ~2024-06-29 | US_ITS ---
EXAMINATION: US ABDOMEN HISTORY: R10.9 - Unspecified abdominal pain TECHNIQUE: Real-time grayscale ultrasound imaging of the abdomen was performed and images were reviewed. COMPARISON: Correlation is made with a CT of the abdomen with contrast dated 12/27/2021. FINDINGS: Liver: The right lobe of the liver measures 14.4 cm in size. The left lobe of the liver measures 8.8 cm in size. The liver demonstrates normal homogeneous echotexture. No focal mass or intrahepatic biliary ductal dilatation is identified. There is normal hepatopedal flow in the portal vein. Gallbladder and biliary tree: The gallbladder is unremarkable, without evidence of calculi, wall thickening, or pericholecystic fluid. There is no sonographic Quintana sign. The common bile duct is normal in caliber measuring 4 mm. Kidneys: The right kidney measures 11.0 cm in length. The left kidney measures 12.0 cm in length. The kidneys are unremarkable, without evidence of masses, hydronephrosis, or calculi. Pancreas: The pancreatic head, neck, and body are unremarkable. The pancreatic tail is obscured by bowel gas. Spleen: The spleen is normal in size and contour, measuring 11.7 cm in length. Abdominal aorta and inferior vena cava: The visualized portions of the abdominal aorta and inferior vena cava are normal in caliber. There is no free fluid in the abdomen. US/US abdomen complete IMPRESSION: Unremarkable abdominal ultrasound. Electronically signed by: Cornelio Ray MD 06/29/2024 10:01 AM EDT
--- OUTSIDE RECORDS SUMMARY | 2024-06-29 09:02 | XMS_ITS | Clinical Summary ---
Author Organization [employer] Address [address] [place] [address] [address] [place] [address] Care Team Providers Care Inventory Manager Name Role Phone Unavailable Primary Care Provider Unavailabl e Allergies No known active allergies Medications SUMAtriptan (Imitrex) 100 MG tablet PLEASE SEE ATTACHED FOR DETAILED DIRECTIONS 4 Active triamcinolone (Kenalog) 0.5 % cream 1 APPL TOPICALLY DAILY FOR 2 WEEKS 4 Active magnesium oxide (Mag-Ox) 400 (240 Mg) MG tablet TAKE 1 TABLET BY MOUTH EVERY DAY AT BEDTIME *MAY HOLD FOR LOOSE STOOLS* 4 Active amitriptyline (Elavil) 25 MG tablet TAKE 2 TABLETS BY MOUTH EVERY DAY AT BEDTIME 4 Active acetaminophen (Tylenol 8 Hour) 650 MG ER tablet Take 2 tablets by mouth every 8 (eight) hours. 1 Active ibuprofen 600 MG tablet Take 1 tablet (600 mg) by mouth every 6 (six) hours if needed for mild pain for up to 20 doses. 20 tablet 4 Active Active Problems Problem Noted Date Diagnosed Date Dental abscess 10/10/2023 Severe dental caries 10/10/2023 Social History Tobacco Use Types Packs/Day Years Used Date Smoking Tobacco: Never Passive Smoke Exposure: Never Smokeless Tobacco: Never Tobacco Cessation:Counseling Given: No Alcohol Use Standard Drinks/Week Comments Never 0 (1 standard drink = 0.6 oz pur e alcohol) Comments Unknown Sex and Gender Information Value Date Recorded Sex Assigned at Female 12/25/2021 10:35 AM EDT Legal Sex Female 10:35 AM EDT Gender Identity Choose not to disclose 10:35 AM EDT Sexual Orientation Choose not to disclose 2021 10:35 AM EDT Last Filed Vital Signs Vital Sign Reading Time Taken Comments Blood Pressure 118/78 12/25/2023 10:25 AM EDT Pulse - - Temperature - - Respiratory Rate - - Oxygen Saturation - - Inhaled Oxygen Concentration - - Weight - - Height - - Body Mass Index - - Plan of Treatment Health Maintenance Due Date Last Done Comments Depression Screening 1990 HIV Screening 1990 SDOH Screening 1990 Alcohol/Substance Use Screening 2002 Family Planning (PISQ) 2005 Hepatitis C Screening 2008 DTaP/Tdap/Td Vaccines (1 - Tdap) 2009 Hepatitis B Vaccines (1 of 3 - 19+ 3-dose series) 2009 Pap Smear 05/26/2011 Dental Oral Exam 03/28/2019 09/24/2018 Dental Prophylaxis 03/30/2019 09/26/2018 Cervical Cancer Screening 2020 HPV/Cotest 2020 Dental X-Ray: Full Mouth 10/14/202310/12/2 021, 09/24/2018 COVID-19 Vaccine (3 - 2023-2 5 season) 2023 06/14/2021, 02/23/2021 Dental X-Ray: Bitewings 10/10/2024 10/10/19 24, 09/24/2018 Tobacco Screening 12/24/2024 12/25/2023 Zoster Vaccines (1 of 2) 2040 RSV Patients and Patients Aged 60 years or older (1 - 1-dose 75+ series) 2065 Influenza Vaccine Completed 12/12/2023, 12/10/2022, 12/05/2021 HIB Vaccines Aged Out No longer eligi ble based on patient's age to complete this topic HPV Vaccines Aged Out No longer eligi ble based on patient's age to complete this topic Hepatitis A Vaccines Aged Out No long er eligible based on patient's age to complete this topic IPV Vaccines Aged Out No longer eligi ble based on patient's age to complete this topic Meningococcal Vaccine Aged Out No jai madeline eligible based on patient's age to complete this topic Pneumococcal Vaccine: Pediatrics (0 to 5 Years) and At-Risk Patients (6 to 49) Years) Aged Out No longer eligible b ased on patient's age to complete this topic RSV under 20 months Aged Out No longe r eligible based on patient's age to complete this topic Rotavirus Vaccines Aged Out No longer eligible based on patient's age to complete this topic Procedures Procedure Name Priority Date/Time Associated Diagnosis Comments BITEWING - SINGLE RADIOGRAPHIC IMAGE Routine 10/10/2023 1:00 PM EDT PANORAMIC RADIOGRAPHIC IMAGE Routine 10/12/2020 12:00 AM EDT PROPHYLAXIS - ADULT Routine 09/26/2018 1 2:00 AM EDT COMPREHENSIVE ORAL EVALUATION - NEW OR ESTABLISHED PATIENT Routine 09/24/2018 12:00 AM EDT from Last 3 Months or Most Recently Relevant to Health Maintenance Insurance DENTAL - HSN PARTIAL (MEDICAID)
--- OUTSIDE RECORDS SUMMARY | 2024-06-29 09:02 | XMS_ITS | Encounter Summary ---
Author Organization [facility] Address [address] [place] [address] [address] [place] [address] Care Team Providers Care Historian Research Assistant Name Role Phone Unavailable Primary Care Provider Unavailabl e Encounter Details Date Type Department Care Team (Latest Contact Info) Description 09/26/2018 Abstract [facility] CONVERSIONS Dental, Provider, DDS Social History Tobacco Use Types Packs/Day Years Used Date Smoking Tobacco: Never Assessed Comments Unknown Sex and Gender Information Value Date Recorded Sex Assigned at Female 12/25/2021 10:35 AM EDT Legal Sex Female 10:35 AM EDT Gender Identity Choose not to disclose 10:35 AM EDT Sexual Orientation Choose not to disclose 2021 10:35 AM EDT documented as of this encounter Plan of Treatment Not on file documented as of this encounter Visit Diagnoses Not on filedocumented in this encounter
== END 2024-06-29 08:41 | disposition home or self-care (01) ==
LOC: HO.US 08:40
PROVIDERS: PCP Internal Medicine; Visit Provider Internal Medicine
DX: R10.9 Unspecified abdominal pain (principal)
CPT/HCPCS: 76700

== ENCOUNTER → 2024-06-29 08:42 | Outpatient (BNV) | payer OTHER, SELFPAY | PROVIDERS: PCP Internal Medicine; Visit Provider Radiology Diagnostic Radiology | DX: R10.9 Unspecified abdominal pain (principal) | CPT/HCPCS: 76700 ==

== ENCOUNTER 2024-07-21 13:04 | Outpatient (AMB) | payer OTHER, SELFPAY ==
--- OUTSIDE RECORDS SUMMARY | 2024-07-21 13:08 | XMS_ITS | Clinical Summary ---
Author Organization [facility] Address [id number] [place] [id number] Care Team Providers Care Blast Furnace Auxiliaries Supervisor Name Role Phone Unavailable Primary Care Provider Unavailabl e Social History Tobacco Use Types Packs/Day Years Used Date Smoking Tobacco: Never Assessed Comments Unknown Sex and Gender Information Value Date Recorded Sex Assigned at Not on file Legal Sex Female 4:38 AM EST Gender Identity Not on file Sexual Orientation Not on file Plan of Treatment Health Maintenance Due Date Last Done Comments DTaP,Tdap,and Td Vaccines (1 - Tdap) 2009 Hepatitis B Vaccines (1 of 3 - 19+ 3-dose series) 2009 Cervical Cancer Screening: P ap Smear 05/26/2011 COVID-19 Vaccine ( - 2023-2 5 season) 2023 Influenza Vaccine (Season Ended) 2024 HIB Vaccines Aged Out No longer eligi [...] on patient's age to complete this topic MMR Vaccines Aged Out No longer eligi ble based on patient's age to complete this topic Meningococcal ACWY Vaccine Aged Out N o longer eligible based on patient's age to complete this topic Meningococcal B Vaccine Aged Out No l onger eligible based on patient's age to complete this topic Pneumococcal Vaccine: Pediat rics (0 to 5 Years) and At-Risk Patients (6 to 64 Years) Aged Out No longer eligible b ased on patient's age to complete this topic RSV Immunization Patients Un thu 20 months Aged Out No longer eligible b ased on patient's age to complete this topic Varicella Vaccines Aged Out No longer eligible based on patient's age to complete this topic
--- NOTE | 2024-07-21 13:14 | A.OFFVIS_ITS ---
Vital Signs 07/21/24 13:15 Height 5 ft 3 in Weight 145 lb BMI 25.7 BP 120/70 Blood Pressure Location Rt brachial Position Sitting Pulse 70 Pulse Source Pulse Oximeter Pulse Oximetry (%) 100 Oxygen Delivery Method Room Air Intake Visit Reasons: Abdominal bloating follow up PT N/S last appt Intake Note: ESTABLISHED PATIENT for mgmt of GERD w/ Dysphagia, + CIC. US abd done per PCP. CC; C.O. sx exacerbation per the pt not being able to receive their Rx from [facility] on [facility]. Pt states that the pharmacy informed her that there was a problem with the Rx and that they were waiting to hear from the provider's office but never contacted our office. Pt experiencing B/L UQ pain which seems worse in the RUQ than the left. Pt would also like to review US results and discuss any additional testing as necessary. Senior Director Creative Services Required: Yes Senior Director Creative Services Services: Senior Director Creative Services Present Senior Director Creative Services Name: [place] Mathew Longoria [id number] Information Interpreted: clinical only Accompanied by: Daughter Allergies No Known Allergies [No Known Allergies*] Allergy (Verified 07/21/24 13:20) HPI HPI Abdominal bloating follow up PT N/S last appt: Details: LAST VISIT: Chronic GERD IBS (irritable bowel syndrome) Abdominal bloating Constipation Plan Patient will start taking Linzess again. Dulcolax in the evening. Increase fluid intake and activity to promote better bowel motility. Continue lansoprazole in the morning and famotidine at bedtime on as needed basis. Patient was encouraged to avoid dietary triggers and late night snacking. Staying upright for minimum 3 hours after meals discussed with patient. Follow-up in 6 months, sooner on as needed basis. Patient is agreeable to this plan and verbalizes understanding of instructions. She was given the opportunity to ask questions and all questions answered. ? Thank you for allowing me to participate in her care Medications Refilled linaclotide (Linzess) 290 mcg PO QAM 30 caps 4RF K59.00 TODAY'S VISIT: Patient is here today for follow-up. Patient reports that he went to the pharmacy and has not received her medications for several weeks. Patient is without Linzess and without lansoprazole. Patient reports right lower quadrant pain. PCP send her for ultrasound that was normal. Patient reports occasional right lower quadrant pain and bloating. Patient denies any nausea or vomiting. Denies any dyspepsia, dysphagia or odynophagia. Denies any melena, hematochezia. [facility] Medical History Duodenitis Hiatal hernia Chronic GERD Right knee pain Left knee pain SAMRA (generalized anxiety disorder) Migraines Mild recurrent major depression Chest pain Surgical History Hx of colonoscopy Hx of appendectomy History of esophagogastroduodenoscopy (EGD) Hx of cholecystectomy Hx of tubal ligation Family History Mother Diabetes Arthritis Father Diabetes Arthritis Sister Cancer Colon cancer, Onset Age: 35 Paternal Uncle Cancer Social History Housing: House Alcohol intake: never Patient Tobacco Use Status: Never used Tobacco e-Cigarette/Vaping Use: Never Used Second Hand Smoke Exposure: No service: No Current occupational status: employed 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 Current occupational exposures/hazards: No Cognitive needs: No Hearing needs: No Vision needs: Yes Female Reproductive History Menstrual Age of Menarche: 12 Review of Systems Const Denies weight gain and Denies weight loss ENT Reports no additional complaints, Denies dysphagia and Denies odynophagia Card Reports no additional complaints Resp Reports no additional complaints GI Denies abdominal pain, Denies belching, Denies melena, Reports bloating, Reports constipation, Denies dysphagia, Denies excessive flatus, Denies dyspepsia, Reports heartburn, Denies diarrhea, Denies loose stools, Denies nausea, Denies odynophagia and Denies vomiting Reports no additional complaints Musc Reports no additional complaints Neuro Reports no additional complaints Psych Reports no additional complaints Endo Reports no additional complaints Physical Exam Vital Signs: Last Vital Signs Pulse 70 07/21/24 13:15 BP 120/70 07/21/24 13:15 Pulse Ox 100 07/21/24 13:15 Oxygen Delivery Method Room Air 07/21/24 13:15 BMI result Body Mass Index 25.7 Const General: healthy appearing, no acute distress and well developed Nutritional Appearance: well nourished Orientation/consciousness: patient oriented x3 Resp Effort & Inspection: normal respiratory effort, able to speak in complete sentences, no tracheal deviation and symmetric chest movement Auscultation: clear to auscultation bilaterally Cardio Rate: regular rate GI Inspection: Yes normal to inspection and No distended Palpation (GI): Soft to palpation, not firm, nontender and No hepatosplenomegaly present Auscultation: normal bowel sounds General: Yes no CVA tenderness Back/Spine/Pelvis Back: no CVA tenderness Skin General skin exam: elasticity normal, turgor normal and dry skin Neuro General: patient oriented x3 Psych Appearance: grossly normal Mental Status: mental status grossly normal Results Reviewed Results Reviewed: ULTRASOUND OF ABDOMEN FINDINGS: Liver: The right lobe of the liver measures 14.4 cm in size. The left lobe of the liver measures 8.8 cm in size. The liver demonstrates normal homogeneous echotexture. No focal mass or intrahepatic biliary ductal dilatation is identified. There is normal hepatopedal flow in the portal vein. Gallbladder and biliary tree: The gallbladder is unremarkable, without evidence of calculi, wall thickening, or pericholecystic fluid. There is no sonographic Quintana sign. The common bile duct is normal in caliber measuring 4 mm. Kidneys: The right kidney measures 11.0 cm in length. The left kidney measures 12.0 cm in length. The kidneys are unremarkable, without evidence of masses, hydronephrosis, or calculi. Pancreas: The pancreatic head, neck, and body are unremarkable. The pancreatic tail is obscured by bowel gas. Spleen: The spleen is normal in size and contour, measuring 11.7 cm in length. Abdominal aorta and inferior vena cava: The visualized portions of the abdominal aorta and inferior vena cava are normal in caliber. There is no free fluid in the abdomen. US/US abdomen complete IMPRESSION: Unremarkable abdominal ultrasound. Assessment & Plan Assessment & Plan (1) Abdominal pain: Code(s): R10.9 - Unspecified abdominal pain Category: Medical Qualifiers: Abdominal location: right lower quadrant Qualified Code(s): R10.31 - Right lower quadrant pain (2) Chronic GERD: Code(s): K21.9 - Gastro-esophageal reflux disease without esophagitis Category: Medical (3) IBS (irritable bowel syndrome): Code(s): K58.9 - Irritable bowel syndrome, unspecified Qualifiers: Irritable bowel syndrome type: without diarrhea Qualified Code(s): K58.9 - Irritable bowel syndrome, unspecified (4) Abdominal bloating: Code(s): R14.0 - Abdominal distension (gaseous) (5) Constipation: Code(s): K59.00 - Constipation, unspecified Qualifiers: Constipation type: chronic idiopathic constipation Qualified Code(s): K59.04 - Chronic idiopathic constipation Plan Patient will continue taking Linzess. Increase fluid intake and activity to promote better bowel motility. Patient will continue taking lansoprazole daily. May take famotidine as needed at bedtime. Avoid dietary triggers and late night snacking. Staying upright for minimum 3 hours after meals discussed with patient. Patient will follow-up in the office in 4-6 months, sooner on as needed basis. She is agreeable to this plan and verbalizes understanding of instructions. She was given the opportunity to ask questions and all questions answered. Thank you for allowing me to participate in her care Medications: Refilled linaclotide (Linzess) 290 mcg PO QAM 30 caps 4RF K59.00 - Constipation, unspecified lansoprazole 30 mg PO DAILY 30 caps 3RF K21.9 - Gastro-esophageal reflux disease without esophagitis Coding Level of Care Code Est Pt Level 4 (55876) Complex EM visit Add On G2211 Diagnoses Right lower quadrant abdominal pain R10.31 Abdominal location: right lower quadrant Chronic GERD K21.9 Irritable bowel syndrome without diarrhea K58.9 Irritable bowel syndrome type: without diarrhea Abdominal bloating R14.0 Chronic idiopathic constipation K59.04 Constipation type: chronic idiopathic constipation Time Spent (min) 35 Comment 25 minutes spent with patient and additional 10 minutes spent reviewing her records
[2024-07-21 13:15] VITALS: BP 120/70; PULSE 70; O2SAT 100; BMI 25.7
== END 2024-07-21 13:44 | disposition home or self-care (01) ==
PROVIDERS: PCP Internal Medicine; Visit Provider Nurse Practitioner Family
DX: R10.31 Right lower quadrant pain (principal); K21.9 Gastro-esophageal reflux disease without esophagitis; K58.9 Irritable bowel syndrome, unspecified; R14.0 Abdominal distension (gaseous); K59.04 Chronic idiopathic constipation
CPT/HCPCS: 99214; G2211

== ENCOUNTER → 2024-07-21 13:04 | Outpatient (BNVA) | payer OTHER, SELFPAY | PROVIDERS: PCP Internal Medicine; Visit Provider Nurse Practitioner Family | DX: K21.9 Gastro-esophageal reflux disease without esophagitis (principal); K59.04 Chronic idiopathic constipation; K58.9 Irritable bowel syndrome, unspecified; R10.31 Right lower quadrant pain; R14.0 Abdominal distension (gaseous) | CPT/HCPCS: 99212 ==

== ENCOUNTER 2024-10-01 18:41 | Emergency (ER) | payer OTHER, SELFPAY ==
--- NOTE | 2024-10-01 18:46 | ED_ITS ---
HPI - General Adult General Chief complaint: Abdominal Pain Stated complaint: abd pain Time Seen by Provider: 10/01/24 20:29 History of Present Illness ED Provider: Rohan Saucedo MD HPI narrative: 34-year-old female with 3 months of abdominal pain rather diffuse but sometimes right lower abdomen. PCP gave her a medication that she is not aware of the name of for constipation no improvement. She has been moving her bowels. Denies dysuria vaginal bleeding she is non . No abdominal trauma she had an appendectomy years ago denies vomiting no fever Related Data Home Medications ?Medication ?Instructions ?Recorded ?Confirmed hydroxyzine pamoate 50 mg capsule 50 mg PO BID PRN all ergies 12/08/21 12/23/23 sertraline 25 mg tablet 25 mg PO DAILY 12/08/2111/26 Previous Rx's ?Medication ?Instructions ?Recorded polyethylene glycol 3350 17 17 g PO DAILY #510 grams 0 03/09/22 gram/dose oral powder (Miralax) famotidine 20 mg tablet (Pepcid) 20 mg PO BEDTIME #30 tabs 08/13/22 bisacodyl 5 mg tablet,delayed 10 mg (2 x 5 mg) PO BEDT TIERRA #30 10/08/22 release (Dulcolax (bisacodyl)) tabs hydrocortisone 2.5 % topical cream 1 appl [place] BID-QID P RN hemorrhoids 12/11/22 with perineal applicator #30 grams (Proctosol HC) triamcinolone acetonide 0.5 % 1 appl topical DAILY 2 w eeks #15 06/04/23 topical cream grams magnesium oxide 400 mg (241.3 mg 400 mg PO BEDTIME 30 days #30 tabs 12/18/23 magnesium) tablet naproxen 500 mg tablet 500 mg PO BID PRN migraine 1 headache 30 days #60 tabs propranolol 60 mg capsule,24 60 mg PO BEDTIME 30 days #30 caps 12/18/23 hr,extended release riboflavin (vitamin B2) 400 mg 400 mg PO DAILY 30 days #30 tabs 12/18/23 tablet sumatriptan succinate 100 mg tablet 50 - 100 mg (0.5 - 1 x 100 mg) PO 12/18/23 .COMPLEX PRN migraine headache 30 days #12 tabs linaclotide 290 mcg capsule 290 mcg PO QAM #30 caps (Linzess) lansoprazole 30 mg capsule,delayed 30 mg PO DAILY #90 caps 07/23/24 release Allergies Allergy/AdvReac Type Severity Reaction Status Date / Time No Known Allergies (No Known Allergy Verified 10/01/24 18:49 Allergies*) [facility] Past Medical History Medical History Duodenitis Hiatal hernia Chronic GERD Right knee pain Left knee pain SAMRA (generalized anxiety disorder) Migraines Mild recurrent major depression Chest pain Surgical History Hx of colonoscopy Hx of appendectomy History of esophagogastroduodenoscopy (EGD) Hx of cholecystectomy Hx of tubal ligation Family History Family History Mother Diabetes Arthritis Father Diabetes Arthritis Sister Cancer Colon cancer, Onset Age: 35 Paternal Uncle Cancer Social History Social History Housing: House Alcohol intake: never Patient Tobacco Use Status: Never used Tobacco e-Cigarette/Vaping Use: Never Used Second Hand Smoke Exposure: No Advance Directives: No Advance Directives Information Provided: No Do you have a plan to hurt others: No Plan service: No Current occupational status: employed 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 Head: Atraumatic Eyes: Anicteric, Normal conjunctiva. ENT: Moist mucosa, no pallor. ? Neck: Supple. Skin: ?No observable rash or bruising on exposed or examined skin Respiratory: Breathing comfortably, No distress.Clear to auscultation bilaterally, symmetric chest expansion, No wheeze, rales, ronchi. Cardiovascular: Regular rate and rhythm. No murmurs or rub. Well perfused periphery, warm extremities. No edema. ? Abdominal: No focal tenderness. Soft, no objective distension. No palpable masses or obvious organomegaly. ?No guarding, no rebound tenderness or other peritoneal findings. : No flank tenderness. Neuro: Alert. Gross movement of all extremities intact. ? Psych: Calm. Cooperative. MSK: No grossly visible deformity. Vital signs: See flowsheet Vital Signs: Vital Signs - 24 hr 10/01/24 18:47 10/01/24 21:57 Temperature 98.5 F 98.5 F Pulse Rate 86 86 Respiratory Rate 18 18 Blood Pressure 129/70 129/70 Pulse Oximetry 98 98 Oxygen Delivery Method Room Air Room Air BMI result Body Mass Index 24.8 Course Course Course Narrative: This is a rapid medical exam performed by Hi Roberson NP: Additional HPI, ROS, PE not included below will be deferred to primary provider. Patient is a 34-year-old female with history of tubal ligation, SAMRA, migraines, GERD presenting to the ED with complaint of RLQ pain radiating to back for the past 3 months. Occasional nausea. Plan: Labs, U/A Medical Decision Making Medical Decision Making MDM Narrative: Medical Decision Makin-year-old female with chronic generalized abdominal discomfort, constipation. No significant focal abdominal exam findings to suggest acute surgical or other emergent causes. The patient is awake alert well-appearing afebrile with reassuring lab work and urinalysis. She does not have flank tenderness. She had an appendectomy in the past this is chronic pain of unclear cause and given her age acute emergent imaging is likely low yield. She is non and has a PCP she can adequately follow up who she has already seen for this. Preliminary Favored Differential Diagnosis: Functional abdominal pain, constipation, IBD, IBS among additional considered etiologies Testing Interpreted Independently: Not Applicable Radiology or Lab testing Results Reviewed: Non actionable lab findings. Non Consults: Not Applicable Independent Historians/External Chart Reviews: Not Applicable Social Determinants of Health Impacting MDM/Planning: Not Applicable Lab Data 10/01/24 19:43 10/01/24 19:43 Labs: Lab Results 10/01/24 Range/Units 19:43 WBC 8.8 (4.8-10.8) X10*3/uL RBC 4.15 L (4.20-5.50) X10*6/uL Hgb 11.6 L (12.0-16.0) g/dl Hct 35.7 L (37.0-47.0) % MCV 86.0 (80.0-98.0) fL MCH 28.0 (27.0-33.0) pg MCHC 32.5 (31.0-35.0) g/dl RDW 13.5 (11.0-16.0) % Plt Count 227 (160-400) X10*3/uL MPV 10.5 (9.4-12.3) fL Immature Gran % (Auto) 1.1 H (0.0-0.4) % Neut % (Auto) 54.3 (45-73) % Lymph % (Auto) 32.3 (20-40) % [place] % (Auto) 9.4 (2-11) % Eos % (Auto) 2.2 (0-4) % Baso % (Auto) 0.7 (0-2) % Lymph # (Auto) 2.8 (1.2-4.9) X10*3/uL [place] # (Auto) 0.8 (0.1-1.2) X10*3/uL Eos # (Auto) 0.2 (0.0-0.4) X10*3/uL Baso # (Auto) 0.1 (0.0-0.2) X10*3/uL Abs Immat Gran (auto) 0.10 H (0.00-0.03) X10*3/uL Absolute Neuts (auto) 4.8 (2.0-8.3) x10*3/uL Absolute Nucleated RBC 0.000 (0.0-0.012) X10*3/uL Nucleated RBC % (auto) 0.0 (0.0-0.2) /100WBC Sodium 142 (135-145) mmol/L Potassium 3.5 (3.3-5.1) mmol/L Chloride 104 (96-108) mmol/L Carbon Dioxide 29 (22-29) mmol/L Anion Gap 13 (12-20) BUN 8 L (9-16) mg/dL Creatinine 0.76 (0.5-1.4) mg/dL Estim Creat Clear Calc 93.6 Estimated GFR > 60 Random Glucose 89 (60-115) mg/dL Calcium 9.1 (8.4-10.2) mg/dL Total Bilirubin 0.2 (0.0-1.0) mg/dL AST 21 (5-31) U/L ALT 17 (0-31) U/L Alkaline Phosphatase 51 (39-117) U/L Total Protein 7.3 (6.5-8.0) g/dL Albumin 4.5 (3.5-5.0) g/dL Beta HCG, Quant < 2 mIU/mL Urine Color Yellow Urine Appearance Clear Urine pH 6.5 (5.0-9.0) Ur Specific [place] 1.020 (1.005-1.025) Urine Protein Negative (Neg-Trace) mg/dL Urine Glucose (UA) Negative (Negative) mg/dL Urine Ketones Negative (Negative) mg/dL Urine Blood Trace H (Negative) Urine Nitrite Negative (Negative) Ur Leukocyte Esterase Negative (Negative) Urine RBC 3-5 H (0-2) /HPF Urine WBC 0-5 (0-5) /HPF Ur Squamous Epith Cells 0-2 (0-2) /HPF Urine Bacteria Trace (None Seen) Hyaline Casts 0-2 (0-2) /LPF Discharge Plan Discharge Clinical Impression: Chronic abdominal pain Patient Disposition: Home, Self-Care Instructions: Chronic Abdominal Pain (DC) Additional Instructions: You will need to contact your primary doctor follow up. You had reassuring lab work and urinalysis here in the emergency department today he did not have significant tenderness suggesting acute significant or emergent abdominal issues. Your test was negative and your urinalysis did not show UTI Prescriptions: No Action triamcinolone acetonide 0.5 % cream 1 appl topical DAILY 14 Days Qty: 15 0RF lansoprazole 30 mg capsule,delayed release(DR/EC) 30 mg PO DAILY Qty: 90 1RF sertraline 25 mg tablet 25 mg PO DAILY hydroxyzine pamoate 50 mg capsule 50 mg PO BID PRN (Reason: allergies) polyethylene glycol 3350 [Miralax] 17 gram/dose powder 17 g PO DAILY Qty: 510 2RF famotidine [Pepcid] 20 mg tablet 20 mg PO BEDTIME Qty: 30 3RF bisacodyl [Dulcolax (bisacodyl)] 5 mg tablet,delayed release (DR/EC) 10 mg PO BEDTIME Qty: 30 4RF hydrocortisone [Proctosol HC] 2.5 % cream with perineal applicator 1 appl [place] BID-QID PRN (Reason: hemorrhoids) Qty: 30 2RF propranolol 60 mg capsule,extended release 24 hr 60 mg PO BEDTIME 30 Days Qty: 30 6RF magnesium oxide 400 mg (241.3 mg magnesium) tablet 400 mg PO BEDTIME 30 Days Qty: 30 6RF Rx Instructions: may hold for loose stools riboflavin (vitamin B2) 400 mg tablet 400 mg PO DAILY 30 Days Qty: 30 6RF sumatriptan succinate 100 mg tablet 50 - 100 mg PO .COMPLEX PRN (Reason: migraine headache) 30 Days Qty: 12 6RF Rx Instructions: 50 - 100 mg orally at onset of headache, may repeat in 2 hrs PRN; max 2 tabs per day or 4 tabs/week (may take with Ibuprofen) naproxen 500 mg tablet 500 mg PO BID PRN (Reason: migraine headache) 30 Days Qty: 60 3RF Rx Instructions: take w/ food Linzess 290 mcg capsule 290 mcg PO QAM Qty: 30 4RF Interventions: ED Discharge Assessment Last Done: 10/01/24 21:57 Discharge Date/Time: 10/01/24 21:58 Print Language: Romanian
[2024-10-01 18:47] VITALS: BP 129/70; PULSE 86; RESP 18; TEMP 36.9; O2SAT 98; BMI 24.8
[2024-10-01 19:47] LABS: MANUAL DIFF FLAG NO
[2024-10-01 19:50] LABS: Appearance Urine Clear; Glucose Urine UA Negative (Negative); PH 6.5 (5.0-9.0); Specific Gravity - Urine 1.020 (1.005-1.025); UMIC TRIGGER UACC YES
[2024-10-01 20:09] LABS: Hematocrit 35.7 % (37.0-47.0); Hemoglobin 11.6 g/dl (12.0-16.0); Imm Gran Abs Auto 0.10 X10*3/uL (0.00-0.03); Imm Gran Pct Auto 1.1 % (0.0-0.4); Lymphocytes Absolute Auto 2.8 X10*3/uL (1.2-4.9); Mean Corpuscular HGB Conc 32.5 g/dl (31.0-35.0); Mean Corpuscular Hemoglobin 28.0 pg (27.0-33.0); Mean Corpuscular Volume 86.0 fL (80.0-98.0); NRBC Abs Auto 0.000 X10*3/uL (0.0-0.012); NRBC Pct Auto 0.0 /100WBC (0.0-0.2); Platelet Count 227 X10*3/uL (160-400); Red Blood Count 4.15 X10*6/uL (4.20-5.50); White Blood Count 8.8 X10*3/uL (4.8-10.8)
[2024-10-01 20:14] LABS: Alanine Aminotransferase 17 U/L (0-31); Albumin Level 4.5 g/dL (3.5-5.0); Alkaline Phosphatase 51 U/L (39-117); Anion Gap 13 (12-20); Aspartate Amino Transferase 21 U/L (5-31); Blood Urea Nitrogen 8 mg/dL (9-16); Calcium 9.1 mg/dL (8.4-10.2); Carbon Dioxide 29 mmol/L (22-29); Chloride 104 mmol/L (96-108); Creatinine Clr Calc Pharmacy 93.6; Estimated Glomerular Filt Rate > 60; Potassium 3.5 mmol/L (3.3-5.1); Sodium 142 mmol/L (135-145); Total Protein 7.3 g/dL (6.5-8.0)
[2024-10-01 21:57] VITALS: BP 129/70; PULSE 86; RESP 18; TEMP 36.9; O2SAT 98
== END 2024-10-01 21:58 | disposition home or self-care (01) ==
PROVIDERS: Registered Nurse Emergency; Emergency Provider Emergency Medicine; PCP Internal Medicine
DX: R10.31 Right lower quadrant pain (principal); Z87.19 Personal history of other diseases of the digestive system
CPT/HCPCS: 36415; 80053; 81001; 84702; 85025; 99282; 99283

== ENCOUNTER 2024-11-25 10:44 | Outpatient (AMB) | payer OTHER, SELFPAY ==
--- NOTE | 2024-11-25 11:11 | MHC.OFFVIS ---
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 Information Interpreted: clinical only Parking Attendant: Parking Attendant Present Allergies No Known Allergies (No Known Allergies*) Allergy (Verified 11/25/24 11:11) Medication List - Last Reconciled 11/25/24 by Ciarra Anguiano CNM bisacodyl (Dulcolax (bisacodyl)) 10 mg (2 x 5 mg) PO BEDTIME famotidine (Pepcid) 20 mg PO BEDTIME hydrocortisone 2.5% (Proctosol HC) 1 appl DE BID-QID PRN hydroxyzine pamoate 50 mg PO BID PRN lansoprazole 30 mg PO DAILY linaclotide (Linzess) 290 mcg PO QAM magnesium oxide 400 mg PO BEDTIME 30 days naproxen 500 mg PO BID PRN 30 days polyethylene glycol 3350 (Miralax) 17 grams PO DAILY propranolol ER 60 mg PO BEDTIME 30 days riboflavin (vitamin B2) 400 mg PO DAILY 30 days sertraline 25 mg PO DAILY sumatriptan succinate 50 - 100 mg orally at onset of headache, may repeat in 2 hrs PRN; max 2 tabs per day or 4 tabs/week (may take with Ibuprofen) 30 days triamcinolone acetonide 0.5% 1 appl topical DAILY 2 weeks Is last menstrual period known: Yes Last menstrual period: 11/09/24 [facility] SOAKER MEAT annual exam: Details: 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 She is working on it and is trying to drink more water but admits that yesterday she had no vegetables and she only had coffee today so far. She says the pain is pretty much there most of the time it does get worse when she gets her. But is not other was connected in any way to her menstrual cycle she takes either Tylenol or ibuprofen for menstrual cramps if needed. She has had her tubal ligation so she does not need to worry about control. REPLACED BY [facility] Medical History Duodenitis Hiatal hernia Chronic GERD Right knee pain Left knee pain SAMRA (generalized anxiety disorder) Migraines Mild recurrent major depression Chest pain Surgical History Hx of colonoscopy Hx of appendectomy History of esophagogastroduodenoscopy (EGD) Hx of cholecystectomy Hx of tubal ligation Family History Mother Diabetes Arthritis Father Diabetes Arthritis Sister Cancer Colon cancer, Onset Age: 35 Paternal Uncle Cancer Social History Housing: House Alcohol intake: never Patient Tobacco Use Status: Never used Tobacco e-Cigarette/Vaping Use: Never Used Second Hand Smoke Exposure: No service: No Current occupational status: employed 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 Current occupational exposures/hazards: No Cognitive needs: No Hearing needs: No Vision needs: Yes Female Reproductive History Menstrual Age of Menarche: 12 Duration of menses: 3-5 days Date of last menstrual period: 11/09/24 control method: permanent sterilization Total pregnancies: 3 Full term: 3 Date of last pap smear: 08/09/21 (negative) Physical Exam Vital Signs: Last Vital Signs BP 116/70 11/25/24 11:26 BMI result Body Mass Index 27.8 Const General: healthy appearing, comfortable, no acute distress, well developed and alert Nutritional Appearance: average body habitus Orientation/consciousness: patient oriented x3 Limitations: no limitations HEENT Head: Yes normocephalic Neck Neck: Yes normal visual inspection Chest Chest palpation & inspection: normal inspection of the chest Breast/axilla inspection: normal inspection of the breasts and normal inspection of the axillae Breast/axilla palpation: normal palpation of the breasts and normal palpation of the axillae Resp Effort & Inspection: normal respiratory effort GI Inspection: Yes normal to inspection, No Abdominal wall edema and No distended Palpation (GI): Soft to palpation and nontender Other: External exam within normal limits vagina pink moist with very healthy appearing mucosa cervix pink smooth healthy appearing it was tightly closed and it did bleed with admission of Q-tip into tight os for GC chlamydia testing. Cervix mobile nontender uterus small mobile anteverted mobile nontender adnexa nontender good tone with Kegel no tenderness elicited anywhere. General: Yes bladder normal to palpation External Female Exam: normal external appearance and normal appearance of the urethra Speculum Exam - Vagina: normal appearance of the vagina, normal palpation and normal vaginal discharge Speculum Exam - Cervix: normal appearance of the cervix, normal palpation and nontender Bimanual exam- vagina & uterus: normal bimanual exam, normal palpation, uterine size normal, bladder normal to palpation, consistency normal, normal palpation, uterine mobility normal, uterine shape normal, No Cervical tenderness present, non-tender and no cervical motion tenderness Bimanual Exam- Adnexa, other: normal adnexae, no masses, normal and No adnexal tenderness Neuro General: patient oriented x3 Assessment & Plan Assessment & Plan (1) Hx of tubal ligation: Comment: Patient stated it was done at [facility] but there were no records in the system and she said it was after she gave but she said she delivered at [facility]. Suggested she check records at [facility]. Code(s): Z98.51 - Tubal ligation status Category: Surgical (2) Well woman exam with routine gynecological exam: Code(s): Z01.419 - Encounter for gynecological examination (general) (routine) without abnormal findings Category: Medical (3) Cervical cancer screening: Comment: 08/08/2021 Pap is negative with negative HPV. Code(s): Z12.4 - Encounter for screening for malignant neoplasm of cervix Category: Medical (4) Pelvic pain in female: Comment: Not in any way cyclic or change in with menstrual cycle. Code(s): R10.2 - Pelvic and perineal pain Category: Medical (5) Chronic constipation: Code(s): K59.09 - Other constipation Category: Medical Plan -----Discussed in this visit the following: healthy balanced diet, regular and consistent exercise, getting recommended health screens, doing the best she can for her particular health concerns, kegel exercises, pap smear screening and followup recommendations, mammography screening and SBE, normal changes in cycles in her life stage--- . Testing done for STIs with the exam Pap not needed or do at this time. Patient was concerned about the bleeding from her os as it never happened before but her cervix was tightly closed and with the admission of the Q-tip it just spontaneously bled the mucosa was extremely healthy-appearing otherwise so suspect that there will be no pathology whatsoever. 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 Suggested that her next day off she has spend some time trying to cook vegetables in a pleasing way to add them to her diet. Coding Level of Care Code Est Pt Prev Care [id number]) Diagnoses Hx of tubal ligation Z98.51 Well woman exam with routine gynecological exam Z01.419 Cervical cancer screening Z12.4 Pelvic pain in female R10.2 Chronic constipation K59.09
[2024-11-25 11:26] VITALS: BP 116/70; BMI 27.8
--- OUTSIDE RECORDS SUMMARY | 2024-11-25 12:18 | XMS_ITS | Encounter Summary ---
Author Organization [facility] Address [address] [place] [address] [address] [address] Care Team Providers Care Property Damage Claims Adjustor Name Role Phone Unavailable Primary Care Provider Unavailabl e Encounter Details Date Type Department Care Team (Latest Contact Info) Description 09/26/2018 Abstract [facility] CONVERSIONS Dental, Provider, DDS Social History Tobacco [...] as of this encounter Plan of Treatment Upcoming Encounters Date Type Department Care Team (Late st Contact Info) Description 11/27/2024 11:00 AM EDT Office Visit [facility] ADULT DENTAL [address] [place] [address] SpencerFatuma Zeng, DDS [address] [place] [address] documented as of this encounter Visit Diagnoses Not on filedocumented in this encounter
--- OUTSIDE RECORDS SUMMARY | 2024-11-25 12:18 | XMS_ITS | Clinical Summary ---
Author Organization [facility] ity Address [id number] [place] [id number] Care Team Providers Care Assembly Mechanic Name Role Phone Unavailable Primary Care Provider [...] Cervical Cancer Screening: P ap Smear 05/26/2011 HPV Vaccines (1 - 3-dose SCD M series) 2017 Depression Screening 02/26/2024 COVID-19 Vaccine ( - 2023-2 5 season) 2024 Influenza Vaccine (#1) 2024 RSV Immunization Adult Patie nts (1 - 1-dose 75+ series) 2065 HIB Vaccines Aged Out No longer eligi [...] 5 Years) and At-Risk Patients (6 to 49 Years) Aged Out No longer eligible b ased on patient's age to complete this topic RSV Immunization Patients Un thu 20 months Aged Out No longer eligible b ased on patient's age to complete this topic Varicella Vaccines Aged Out No longer eligible based on patient's age to complete this topic
--- OUTSIDE RECORDS SUMMARY | 2024-11-25 12:18 | XMS_ITS | Clinical Summary ---
Author Organization [email or web address] [employer] Address [address] [place] [address] [address] [place] [address] Care Team Providers Care Change Management Lead Name Role Phone Unavailable Primary Care Provider Unavailabl e Allergies No known active allergies Medications SUMAtriptan (Imitrex) 100 MG tablet PLEASE SEE ATTACHED FOR DETAILED DIRECTIONS 06/14/19 24 Active triamcinolone (Kenalog) 0.5 % cream 1 APPL TOPICALLY DAILY FOR 2 WEEKS 06/04/19 24 Active magnesium oxide (Mag-Ox) 400 (240 Mg) MG tablet TAKE 1 TABLET BY MOUTH EVERY DAY AT BEDTIME *MAY HOLD FOR LOOSE STOOLS* 06/14/19 24 Active amitriptyline (Elavil) 25 MG tablet TAKE 2 TABLETS BY MOUTH EVERY DAY AT BEDTIME 06/14/19 24 Active acetaminophen (Tylenol 8 Hour) 650 MG ER tablet Take 1 tablet (650 mg) by mouth every 8 (eight) hours if needed for mild pain. Do not crush, chew, or split. 30 tablet 11/06/19 25 Active ibuprofen 400 MG tablet Take 1 tablet (400 mg) by mouth every 6 (six) hours if needed for moderate pain. 15 tablet 11/06/19 25 Active acetaminophen (Tylenol 8 Hour) 650 MG ER tablet Take 2 tablets by mouth every 8 (eight) hours. 10/29/19 21 025 Discontinued ibuprofen 600 MG tablet Take 1 tablet (600 mg) by mouth every 6 (six) hours if needed for mild pain for up to 20 doses. 20 tablet 12/25/19 24 025 Discontinued amoxicillin (Amoxil) 500 MG capsule Take 1 capsule (500 mg) by mouth every 8 (eight) hours for 7 days. 21 capsule 11/06/19 25 025 Active Problems Problem Noted Date Diagnosed Date Pain, dental 11/05/2024 Dental abscess 10/10/2023 Dental caries into pulp 10/10/2023 Encounters Date Type Department Care Team Description 11/05/2024 11:30 AM EDT Office Visit [facility] ADULT D[facility] [address] [place] [address] Fabrizio Davis DDS Severe dental caries (Primary Dx); Pain, dental; Dental caries into pulp from Last 3 Months Social History Tobacco Use Types Packs/Day Years [...] Mass Index - - Plan of Treatment Upcoming Encounters Date Type Department Care Team (Late st Contact Info) Description 11/27/2024 11:00 AM EDT Office Visit [facility] [address] [place] [address] Fatuma Ames DDS [address] [place] [address] Health Maintenance Due Date Last Done Comments Depression Screening 1990 HIV Screening 1990 SDOH Screening 1990 Disability Screening 1990 Alcohol/Substance Use Screening 2002 Family Planning (PISQ) 2005 HPV Vaccines (1 - 3-dose series) 2005 Hepatitis C Screening 2008 Hepatitis B Vaccines (1 of 3 - 19+ 3-dose series) 2009 Pap Smear 05/26/2011 Dental Oral Exam 03/28/2019 09/24/2018 Dental Prophylaxis 03/30/2019 09/26/2018 Cervical Cancer Screening 2020 HPV/Cotest 2020 Dental X-Ray: Full Mouth 10/14/2023 10/12/2020, 08/27 Dental X-Ray: Bitewings 10/10/2024 10/10/2023, 09/24 COVID-19 Vaccine (3 - season) 2024 06/14/2021, 02/23/2021 Influenza Vaccine (#1) 2024 , 12/10/2022, 12/05/2021, Additional history exists Tobacco Screening 11/05/2025 11/05/2024 DTaP/Tdap/Td Vaccines (2 - Td or Tdap) 01/08/2026 01/09/2016 Zoster Vaccines (1 of 2) 2040 RSV Patients and Patients Aged 60 years or older (1 - 1-dose 75+ series) 2065 HIB [...] Years) and At-Risk Patients (6 to 49) Years Aged Out No longer eligible based on patient's age to complete this topic RSV under 20 months Aged Out No longe r eligible based on patient's age to complete this topic Rotavirus Vaccines Aged Out No longer eligible based on patient's age to complete this topic Procedures Procedure Name Priority Date/Time Associated Diagnosis Comments CASE PRESENTATION, DETAILED AND EXTENSIVE TREATMENT PLANNING Routine 11/05/2024 11:30 AM EDT INTRAORAL - PERIAPICAL FIRST RADIOGRAPHIC IMAGE Routine 11/05/2024 11:30 AM EDT LIMITED ORAL EVALUATION - PROBLEM FOCUSED Routine 11/05/2024 11:30 AM EDT BITEWING - SINGLE RADIOGRAPHIC IMAGE Routine 10/10/2023 [...]
== END 2024-11-25 12:09 | disposition home or self-care (01) ==
LOC: HO.HWSM 10:44
PROVIDERS: PCP Internal Medicine; Visit Provider Advanced Practice Midwife
DX: Z01.419 Encounter for gynecological examination (general) (routine) without abnormal findings (principal); Z98.51 Tubal ligation status; Z12.4 Encounter for screening for malignant neoplasm of cervix; R10.20 Pelvic and perineal pain unspecified side; K59.09 Other constipation
CPT/HCPCS: 99395; 99459

== ENCOUNTER 2024-11-25 10:44 | Outpatient (REF) | payer OTHER, SELFPAY ==
[2024-11-26 06:12] LABS: Bacterial Vaginosis PCR POSITIVE (Negative); Candida Group PCR NOT DETECTED (Not Detect); Candida glab krusei PCR NOT DETECTED (Not Detect); Trichomonas vaginalis PCR NOT DETECTED (Not Detect)
[2024-11-26 06:42] LABS: CT PCR NOT DETECTED (Not Detect.); NG PCR NOT DETECTED (Not Detect.)
== END 2024-11-25 10:45 | disposition home or self-care (01) ==
LOC: HO.LAB 10:44
PROVIDERS: PCP Internal Medicine; Visit Provider Advanced Practice Midwife
DX: Z01.419 Encounter for gynecological examination (general) (routine) without abnormal findings (principal); K59.09 Other constipation; N89.8 Other specified noninflammatory disorders of vagina; Z98.51 Tubal ligation status; Z20.2 Contact with and (suspected) exposure to infections with a predominantly sexual mode of transmission
CPT/HCPCS: 81515; 87491; 87591; 99395